=== PATIENT | female | born 1955 | race Asian ===

== ENCOUNTER 2017-04-03 01:43 | Emergency (ER) | payer OTHER ==
[~2017-04-03] VITALS: Ht 152.4 cm; Wt 64.9 kg
[2017-04-03] MEDS ORDERED: FENTANYL PF 100 MCG/2ML ONE (02:19)
[2017-04-03] MEDS ORDERED: ONDANSETRON 2MG/ML, 2ML ONE (02:19)
[2017-04-03] MEDS ORDERED: FAMOTIDINE 20 MG/2 ML ONE (02:20)
[2017-04-03] MEDS ORDERED: FAMOTIDINE 20 MG/2 ML IVP ONE (02:30)
[2017-04-03] MEDS ORDERED: SODIUM CHLORIDE FLUSH 10ML SYR IVF ONE (02:30)
[2017-04-03] MEDS ORDERED: SODIUM CHLORIDE 0.9% 1,000ML IVBOLUS ONE (02:30)
[2017-04-03] MEDS ORDERED: ONDANSETRON 2MG/ML, 2ML IVPush ONE (02:30)
[2017-04-03] MEDS ORDERED: FENTANYL PF 100 MCG/2ML IVPush PRN (02:30)
[2017-04-03 02:34] LABS: BASOPHILS # (AUTO) 0.04 x10^3/uL (0-0.1); BASOPHILS % (AUTO) 0 % (0-1); EOSINOPHILS % (AUTO) 2 % (1-7); LYMPHOCYTES # (AUTO) 2.35 x10^3/uL (1-3.4); LYMPHOCYTES % (AUTO) 22 % (22-44); MD NO; MEAN CORPUSCULAR HEMOGLOBIN 28.9 pg (27.0-34.8); MEAN CORPUSCULAR HGB CONC 33.3 g/dL (32.4-35.8); MEAN CORPUSCULAR VOLUME 86.7 fL (80-100); MEAN PLATELET VOLUME 9.8 fL (7.4-10.4); MONOCYTES # (AUTO) 0.67 x10^3/uL (0.2-0.8); MONOCYTES % (AUTO) 6 % (2-9); NEUTROPHILS % (AUTO) 70 % (42-75); PLATELET COUNT 219 x10^3/uL (130-400); RED CELL DISTRIBUTION WIDTH 13.4 % (9.6-15.2)
[2017-04-03 02:40] LABS: ALBUMIN 3.3 g/dL (3.4-5.0); ANION GAP 7 mmol/L (5-15); CHLORIDE 110 mmol/L (98-107)
[2017-04-03 02:45] LABS: ALANINE AMINOTRANSFERASE 41 U/L (12-78); ALKALINE PHOSPHATASE 56 U/L (45-117); BILIRUBIN,TOTAL 0.5 mg/dL (0.2-1.0); TOTAL PROTEIN 7.3 g/dL (6.4-8.2); TROPONIN I < 0.015 ng/mL (0.000-0.045)
[2017-04-03 02:47] LABS: MICROSCOPIC AUTO
[2017-04-03 02:54] LABS: CULTURE INDICATED? YES
[2017-04-03] MEDS ORDERED: OMNIPAQUE 350 MG/ML, 100ML BOTTLE ONE (03:01)
[2017-04-03 04:10] VITALS: BP 142/90
== END 2017-04-03 04:14 | disposition home or self-care (01) ==
LOC: ED 02:18
DX: K29.00 Acute gastritis without bleeding (principal); Z88.6 Allergy status to analgesic agent; Z88.5 Allergy status to narcotic agent
CPT/HCPCS: 36415; 71010; 74177; 80053; 81001; 83690; 84484; 85025; 87086; 93005; 96361; 96374; 96375; 99285; J2405; J3010; J7030; Q9967; S0028

== ENCOUNTER 2017-04-05 22:00 | Emergency (ER) | payer OTHER ==
[~2017-04-05] VITALS: Ht 152.4 cm; Wt 64.2 kg
[2017-04-05] MEDS ORDERED: CIPR500T3 PO (22:48)
[2017-04-05] MEDS ORDERED: LOSA25TA5 PO (22:51)
[2017-04-05] MEDS ORDERED: ONDANSETRON ODT 4 MG ONE (23:21)
[2017-04-05] MEDS ORDERED: FAMOTIDINE 20 MG TABLET ONE (23:21)
[2017-04-05 23:23] LABS: BASOPHILS # (AUTO) 0.02 x10^3/uL (0-0.1); BASOPHILS % (AUTO) 0 % (0-1); EOSINOPHILS # (AUTO) 0.15 x10^3/uL (0-0.4); EOSINOPHILS % (AUTO) 2 % (1-7); LYMPHOCYTES # (AUTO) 1.29 x10^3/uL (1-3.4); LYMPHOCYTES % (AUTO) 13 % (22-44); MD NO; MEAN CORPUSCULAR HGB CONC 33.7 g/dL (32.4-35.8); MEAN CORPUSCULAR VOLUME 86.1 fL (80-100); MEAN PLATELET VOLUME 9.7 fL (7.4-10.4); MONOCYTES # (AUTO) 0.57 x10^3/uL (0.2-0.8); MONOCYTES % (AUTO) 6 % (2-9); NEUTROPHILS % (AUTO) 80 % (42-75); PLATELET COUNT 228 x10^3/uL (130-400); RED BLOOD COUNT 4.55 x10^6/uL (3.82-5.3); RED CELL DISTRIBUTION WIDTH 13.6 % (9.6-15.2)
[2017-04-05] MEDS ORDERED: FAMOTIDINE 20 MG TABLET PO ONE (23:30)
[2017-04-05] MEDS ORDERED: ONDANSETRON ODT 4 MG PO ONE (23:30)
[2017-04-05 23:35] LABS: ALANINE AMINOTRANSFERASE 51 U/L (12-78); ALBUMIN 3.4 g/dL (3.4-5.0); ANION GAP 8 mmol/L (5-15); CALCIUM 8.8 mg/dL (8.5-10.1); CHLORIDE 111 mmol/L (98-107); CREATININE 0.99 mg/dL (0.55-1.02)
[2017-04-05 23:40] LABS: ALKALINE PHOSPHATASE 52 U/L (45-117); BILIRUBIN,TOTAL 0.4 mg/dL (0.2-1.0); TOTAL PROTEIN 7.4 g/dL (6.4-8.2); TROPONIN I 0.017 ng/mL (0.000-0.045)
[2017-04-06] MEDS ORDERED: ONDANSETRON ODT 4 MG ONE (00:03)
[2017-04-06 00:30] VITALS: BP 135/94
[2017-04-06] MEDS ORDERED: AMLO5TAB2 PO (12:42)
[2017-04-06] MEDS ORDERED: SITA1TAB PO (12:43)
[2017-04-07] MEDS ORDERED: TAMS0.4C2 PO (19:37)
[2017-04-07] MEDS ORDERED: PHEN100T90 PO (19:38)
== END 2017-04-06 00:58 | disposition home or self-care (01) ==
LOC: ED 23:29
DX: R10.13 Epigastric pain (principal); R11.0 Nausea; E11.9 Type 2 diabetes mellitus without complications; I10 Essential (primary) hypertension
CPT/HCPCS: 36415; 80053; 83690; 84484; 85025; 93005; 99285; Q0162

== ENCOUNTER 2017-04-06 09:35 | Inpatient (IN) | payer OTHER ==
[~2017-04-06] VITALS: Ht 152.4 cm; Wt 63.1 kg
[~2017-04-06 09:35] MED LIST: CIPR500T3 PO; LOSA25TA5 PO
[2017-04-06] MEDS ORDERED: NALOXONE 0.4 MG/ML, 1ML ONE (10:28)
[2017-04-06] MEDS ORDERED: GLYCOPYRROLATE 0.2MG/1ML, 5ML ONE (10:28)
[2017-04-06] MEDS ORDERED: ROCURONIUM 10 MG/ML,10ML ONE (10:28)
[2017-04-06] MEDS ORDERED: CEFAZOLIN 1,000 MG ONE (10:28)
[2017-04-06] MEDS ORDERED: PROPOFOL 10 MG/ML, 20ML ONE (10:28)
[2017-04-06] MEDS ORDERED: SUCCINYLCHOLINE 20 MG/ML, 10ML ONE (10:28)
[2017-04-06] MEDS ORDERED: NEOSTIGMINE 1 MG/ML, 10ML ONE (10:28)
[2017-04-06] MEDS ORDERED: MORPHINE SULFATE 4 MG/ML, 1ML ONE ×2 (10:44→12:36)
[2017-04-06] MEDS ORDERED: ONDANSETRON 2MG/ML, 2ML ONE (10:44)
[2017-04-06] MEDS ORDERED: HYDROmorphone 1 MG/ML, 1ML IVPush PRN (11:00)
[2017-04-06] MEDS ORDERED: SODIUM CHLORIDE 0.9% 1,000ML IV ONE (11:00)
[2017-04-06] MEDS ORDERED: ONDANSETRON 2MG/ML, 2ML IVPush ONE (11:00)
[2017-04-06] MEDS ORDERED: SODIUM CHLORIDE FLUSH 10ML SYR IVF ONE (11:00)
[2017-04-06 11:13] LABS: MEAN CORPUSCULAR HEMOGLOBIN 28.7 pg (27.0-34.8); MEAN CORPUSCULAR HGB CONC 33.5 g/dL (32.4-35.8); MEAN CORPUSCULAR VOLUME 85.6 fL (80-100); MEAN PLATELET VOLUME 9.6 fL (7.4-10.4); PLATELET COUNT 235 x10^3/uL (130-400); RED BLOOD COUNT 4.74 x10^6/uL (3.82-5.3); RED CELL DISTRIBUTION WIDTH 13.2 % (9.6-15.2)
[2017-04-06 11:25] LABS: ALBUMIN 3.8 g/dL (3.4-5.0); ANION GAP 8 mmol/L (5-15); CALCIUM 8.8 mg/dL (8.5-10.1); CHLORIDE 107 mmol/L (98-107)
[2017-04-06 11:28] LABS: ALANINE AMINOTRANSFERASE 57 U/L (12-78); ALKALINE PHOSPHATASE 51 U/L (45-117); BILIRUBIN,TOTAL 0.6 mg/dL (0.2-1.0); CREATININE 1.12 mg/dL (0.55-1.02); TOTAL PROTEIN 8.1 g/dL (6.4-8.2)
[2017-04-06 11:29] LABS: BASOPHILS # (AUTO) 0.01 x10^3/uL (0-0.1); BASOPHILS % (AUTO) 0 % (0-1); EOSINOPHILS # (AUTO) 0.28 x10^3/uL (0-0.4); EOSINOPHILS % (AUTO) 2 % (1-7); LYMPHOCYTES # (AUTO) 1.33 x10^3/uL (1-3.4); LYMPHOCYTES % (AUTO) 9 % (22-44); MD SCAN; MONOCYTES # (AUTO) 1.02 x10^3/uL (0.2-0.8); MONOCYTES % (AUTO) 7 % (2-9); NEUTROPHILS # (AUTO) 11.42 x10^3/uL (1.8-6.8); NEUTROPHILS % (AUTO) 81 % (42-75)
[2017-04-06] MEDS ORDERED: MORPHINE SULFATE 4 MG/ML, 1ML IVPush ONE (11:30)
[2017-04-06 11:46] LABS: MICROSCOPIC AUTO
[2017-04-06 11:49] LABS: CULTURE INDICATED? YES
[2017-04-06] MEDS ORDERED: CIPROFLOXACIN 500 MG TABLET PO ONE (12:00)
[2017-04-06] MEDS ORDERED: TAMSULOSIN 0.4 MG CAP.ER.24H ONE (12:18)
[2017-04-06] MEDS ORDERED: CIPROFLOXACIN 500 MG TABLET ONE (12:19)
[2017-04-06] MEDS ORDERED: MORPHINE SULFATE 4 MG/ML, 1ML IVPush PRN (12:30)
[2017-04-06] MEDS ORDERED: TAMSULOSIN 0.4 MG CAP.ER.24H PO ONE (12:30)
[2017-04-06] MEDS ORDERED: AMLO5TAB2 PO (12:42)
[2017-04-06] MEDS ORDERED: SITA1TAB PO (12:43)
[2017-04-06] MEDS: SODIUM CHLORIDE 0.9% 1,000 ML IV SCH ×2 (12:54→19:31)
[2017-04-06] MEDS ORDERED: ONDANSETRON 2MG/ML, 2ML IVPush PRN ×3 (13:00→16:00)
[2017-04-06] MEDS ORDERED: ACETAMINOPHEN 325 MG TABLET PO PRN ×2 (13:00→14:30)
[2017-04-06] MEDS ORDERED: KETOROLAC 30 MG/1 ML IVPush PRN (13:00)
[2017-04-06] MEDS ORDERED: TEMAZEPAM 15 MG CAPSULE PO PRN (13:00)
[2017-04-06] MEDS ORDERED: FENTANYL PF 100 MCG/2ML ONE (13:04)
[2017-04-06] MEDS ORDERED: MIDAZOLAM 1 MG/ML, 2ML ONE (13:04)
[2017-04-06] MEDS ORDERED: HYDROmorphone 1 MG/ML, 1ML IV PRN (14:30)
[2017-04-06] MEDS ORDERED: hydrALAzine 20 MG/ML, 1ML IV PRN (14:30)
[2017-04-06] MEDS ORDERED: FENTANYL PF 100 MCG/2ML IV PRN (14:30)
[2017-04-06] MEDS ORDERED: OXYcodone 5 MG/5 ML ORAL.SOL UDC PO PRN (14:30)
[2017-04-06] MEDS ORDERED: LABETALOL 5MG/ML, 20ML IV PRN (14:30)
[2017-04-06 15:30] VITALS: BP 125/80
[2017-04-06] MEDS ORDERED: CEFTRIAXONE PMX 1GM/50ML 50 ML IV SCH (16:00)
[2017-04-06] MEDS ORDERED: D5%-0.45NACL+KCL 20MEQ 1,000 ML IV SCH (16:00)
[2017-04-06] MEDS ORDERED: MORPHINE SULFATE 4 MG/ML, 1ML IV PRN (16:00)
[2017-04-06] MEDS ORDERED: HYDROcodone/APAP 5/325 TABLET PO PRN (16:30)
[2017-04-06] MEDS: CEFTRIAXONE 1,000 MG in DEXTROSE 5% 50 ML IVPB SCH (17:38)
[2017-04-06 20:09] VITALS: BP 130/80
[2017-04-06] MEDS: INSULIN ASPART 100 UNITS/ML, PEN SQ-INSULIN SCH (22:16)
[2017-04-07 00:03] VITALS: BP 138/79
[2017-04-07 03:32] VITALS: BP 119/69
[2017-04-07] MEDS: CEFTRIAXONE 1,000 MG in DEXTROSE 5% 50 ML IVPB SCH ×2 (04:15→16:00)
[2017-04-07] MEDS: SODIUM CHLORIDE 0.9% 1,000 ML IV SCH ×3 (04:15→18:21)
[2017-04-07 05:21] LABS: BASOPHILS # (AUTO) 0.02 x10^3/uL (0-0.1); BASOPHILS % (AUTO) 0 % (0-1); EOSINOPHILS # (AUTO) 0.13 x10^3/uL (0-0.4); EOSINOPHILS % (AUTO) 2 % (1-7); LYMPHOCYTES # (AUTO) 1.47 x10^3/uL (1-3.4); LYMPHOCYTES % (AUTO) 18 % (22-44); MD NO; MEAN CORPUSCULAR HEMOGLOBIN 29.3 pg (27.0-34.8); MEAN CORPUSCULAR HGB CONC 33.6 g/dL (32.4-35.8); MEAN PLATELET VOLUME 9.5 fL (7.4-10.4); MONOCYTES # (AUTO) 0.87 x10^3/uL (0.2-0.8); MONOCYTES % (AUTO) 11 % (2-9); NEUTROPHILS # (AUTO) 5.84 x10^3/uL (1.8-6.8); NEUTROPHILS % (AUTO) 70 % (42-75); PLATELET COUNT 195 x10^3/uL (130-400); RED BLOOD COUNT 4.07 x10^6/uL (3.82-5.3); RED CELL DISTRIBUTION WIDTH 13.2 % (9.6-15.2)
[2017-04-07 05:28] LABS: CHLORIDE 106 mmol/L (98-107)
[2017-04-07 05:37] LABS: ANION GAP 5 mmol/L (5-15); CREATININE 0.89 mg/dL (0.55-1.02)
[2017-04-07] MEDS: INSULIN ASPART 100 UNITS/ML, PEN SQ-INSULIN SCH ×4 (07:00→16:00)
[2017-04-07 08:00] VITALS: BP 121/84
[2017-04-07] MEDS ORDERED: MAGNESIUM CITRATE 300ML ORAL SOL PO PRN (16:00)
[2017-04-07 16:11] VITALS: BP 107/67
[2017-04-07] MEDS ORDERED: TAMS0.4C2 PO (19:37)
[2017-04-07] MEDS ORDERED: PHEN100T90 PO (19:38)
[2017-04-07 19:48] VITALS: BP 145/94
== END 2017-04-07 20:15 | disposition home or self-care (01) | DRG 690 ==
LOC: OR 12:47 → SUATTDRO 12:53 → EDIP 12:54 → 4NOR 15:32
PROVIDERS: ADMIT Internal Medicine; ATTEND Internal Medicine
PROC: BT1F1ZZ Fluoroscopy of Left Kidney, Ureter and Bladder using Low Osmolar Contrast (ICD-10-PCS; 2017-04-06)
PROC: 0T778DZ Dilation of Left Ureter with Intraluminal Device, Via Natural or Artificial Opening Endoscopic (ICD-10-PCS; principal; 2017-04-06 11:45)
DX: N13.6 Pyonephrosis (principal); N17.9 Acute kidney failure, unspecified; K76.0 Fatty (change of) liver, not elsewhere classified; E11.9 Type 2 diabetes mellitus without complications; I10 Essential (primary) hypertension; K57.30 Diverticulosis of large intestine without perforation or abscess without bleeding; N00.9 Acute nephritic syndrome with unspecified morphologic changes; N23 Unspecified renal colic; Z87.442 Personal history of urinary calculi; Z88.5 Allergy status to narcotic agent
CPT/HCPCS: 36415; 74018; 74176; 74420; 80048; 80053; 81001; 82962; 83605; 83690; 83735; 85025; 87040; 87086; 96361; 96374; 96375; J0690; J0696; J1815; J1885; J2250; J2310; J2405; J2704; J2710; J3010; J3490; C2617; J0330; J3480; J7030

== ENCOUNTER → 2017-04-24 | Outpatient (CLI) | payer OTHER ==
[~2017-04-24] MED LIST changes: +AMLO5TAB2 PO; +FAMO-79 PO; +LANS30CA PO; +PHEN100T90 PO; +SITA1TAB PO; +TAMS-11 PO; +TAMS0.4C2 PO; +potassium chloride PO
[2017-04-24 15:01] LABS: ALANINE AMINOTRANSFERASE 54 U/L (12-78); ALBUMIN 3.7 g/dL (3.4-5.0); ANION GAP 8 mmol/L (5-15); CALCIUM 8.7 mg/dL (8.5-10.1); CHLORIDE 110 mmol/L (98-107)
[2017-04-24 15:04] LABS: ALKALINE PHOSPHATASE 54 U/L (45-117); BILIRUBIN,TOTAL 0.4 mg/dL (0.2-1.0); CREATININE 0.87 mg/dL (0.55-1.02)
[2017-04-24 15:38] LABS: MICROSCOPIC INDICATED
== END | disposition home or self-care (01) ==
LOC: STAR 13:23
PROVIDERS: ATTEND Urology
DX: Z01.818 Encounter for other preprocedural examination (principal); N20.1 Calculus of ureter
CPT/HCPCS: 36415; 80053; 81001; 87086

== ENCOUNTER 2017-04-28 11:26 | Day surgery (SDC) | payer OTHER ==
[2017-04-24 13:44] VITALS: BP 137/94
[~2017-04-28] VITALS: Ht 152.4 cm; Wt 62.7 kg
[2017-04-28] MEDS ORDERED: LACTATED RINGERS 1,000 ML IV SCH (11:53)
[2017-04-28] MEDS ORDERED: PROPOFOL 10 MG/ML, 20ML ONE (12:37)
[2017-04-28] MEDS ORDERED: LIDOCAINE-MPF 2% ,5ML ONE (12:37)
[2017-04-28] MEDS ORDERED: ONDANSETRON 2MG/ML, 2ML IVPush PRN (13:00)
[2017-04-28] MEDS ORDERED: FENTANYL PF 100 MCG/2ML IV PRN (13:00)
[2017-04-28] MEDS ORDERED: MEPERIDINE/PF 25MG/0.5ML IVPush PRN (13:00)
[2017-04-28] MEDS ORDERED: ACETAMINOPHEN 325 MG TABLET PO PRN (13:00)
[2017-04-28] MEDS ORDERED: HYDROcodone/APAP 7.5-325MG/15ML UDC PO PRN (13:00)
[2017-04-28] MEDS ORDERED: LIDOCAINE GEL 2%, 5ML ONE (13:21)
[2017-04-28] MEDS ORDERED: CEFAZOLIN 1,000 MG ONE (13:32)
[2017-04-28] MEDS ORDERED: DEXAMETHASONE 4 MG/ML, 1ML ONE ×2 (13:41)
[2017-04-28] MEDS ORDERED: ONDANSETRON 2MG/ML, 2ML ONE (13:41)
[2017-04-28] MEDS ORDERED: FENTANYL PF 100 MCG/2ML ONE (13:47)
[2017-04-28] MEDS ORDERED: HYDROcodone/APAP 7.5-325MG/15ML UDC ONE (14:30)
[2017-04-28] MEDS ORDERED: morphine SULFATE 10 MG/ML, 1ML ONE (14:30)
[2017-04-28] MEDS ORDERED: OMNIPAQUE 350 MG/ML, 50 ML BOTTLE ONE (14:32)
[2017-04-28] MEDS: morphine SULFATE 10 MG/ML, 1ML IV PRN ×2 (14:33→14:58)
[2017-04-28] MEDS ORDERED: SCOPOLAMINE PATCH, 1.5MG PATCH.TD72 TD ONE ×2 (17:58→18:00)
== END 2017-04-28 18:45 | disposition home or self-care (01) ==
LOC: OUT 11:26
PROVIDERS: ATTEND Urology
DX: N20.1 Calculus of ureter (principal); E11.9 Type 2 diabetes mellitus without complications; Z88.6 Allergy status to analgesic agent; Z88.5 Allergy status to narcotic agent; Z88.8 Allergy status to other drugs, medicaments and biological substances
CPT/HCPCS: 52353; 74420; 82360; 82962; 88300; C1726; C1758; C1769; J0690; J1100; J2270; J2405; J2704; J3010; J3490; J7120; Q9967

== ENCOUNTER → 2017-06-19 | Outpatient (CLI) | payer OTHER | END | disposition home or self-care (01) | LOC: CFH 11:53 | PROVIDERS: ATTEND Urology | DX: N20.0 Calculus of kidney (principal); K76.0 Fatty (change of) liver, not elsewhere classified | CPT/HCPCS: 74176 ==

== ENCOUNTER → 2017-10-02 | Outpatient (CLI) | payer OTHER | END | disposition home or self-care (01) | LOC: CFH 13:25 | PROVIDERS: ATTEND Obstetrics & Gynecology | DX: Z12.31 Encounter for screening mammogram for malignant neoplasm of breast (principal) | CPT/HCPCS: 77063; 77067 ==

== ENCOUNTER → 2018-03-12 | Outpatient (CLI) | payer OTHER ==
[~2018-03-12] MED LIST changes: +AMLO-150 PO; -AMLO5TAB2 PO; -LOSA25TA5 PO; +LOSA25TA6 PO
[2018-03-12 15:31] LABS: BASOPHILS # (AUTO) 0.03 x10^3/uL (0-0.1); BASOPHILS % (AUTO) 0 % (0-1); EOSINOPHILS # (AUTO) 0.27 x10^3/uL (0-0.4); EOSINOPHILS % (AUTO) 4 % (1-7); LYMPHOCYTES # (AUTO) 1.53 x10^3/uL (1-3.4); LYMPHOCYTES % (AUTO) 20 % (22-44); MD NO; MEAN CORPUSCULAR HEMOGLOBIN 28.5 pg (27.0-34.8); MEAN CORPUSCULAR HGB CONC 33.7 g/dL (32.4-35.8); MEAN CORPUSCULAR VOLUME 84.4 fL (80-100); MEAN PLATELET VOLUME 9.8 fL (7.4-10.4); MONOCYTES # (AUTO) 0.79 x10^3/uL (0.2-0.8); MONOCYTES % (AUTO) 10 % (2-9); NEUTROPHILS # (AUTO) 5.09 x10^3/uL (1.8-6.8); NEUTROPHILS % (AUTO) 66 % (42-75); PLATELET COUNT 241 x10^3/uL (130-400); RED BLOOD COUNT 5.32 x10^6/uL (3.82-5.3); RED CELL DISTRIBUTION WIDTH 13.4 % (9.6-15.2)
[2018-03-12 15:44] LABS: ALANINE AMINOTRANSFERASE 84 U/L (12-78); ALBUMIN 3.5 g/dL (3.4-5.0); ANION GAP 10 mmol/L (5-15); CALCIUM 8.8 mg/dL (8.5-10.1); CHLORIDE 110 mmol/L (98-107); CREATININE 1.31 mg/dL (0.55-1.02)
[2018-03-12 15:47] LABS: ALKALINE PHOSPHATASE 59 U/L (45-117); BILIRUBIN,TOTAL 0.4 mg/dL (0.2-1.0); TOTAL PROTEIN 8.1 g/dL (6.4-8.2)
== END | disposition home or self-care (01) ==
LOC: LAB 15:18
PROVIDERS: ATTEND Nurse Practitioner Family
DX: E11.65 Type 2 diabetes mellitus with hyperglycemia (principal)
CPT/HCPCS: 36415; 80053; 82150; 83690; 85025

== ENCOUNTER → 2018-03-13 | Outpatient (CLI) | payer OTHER | END | disposition home or self-care (01) | LOC: RAD 07:24 | PROVIDERS: ATTEND Nurse Practitioner Family | DX: K76.0 Fatty (change of) liver, not elsewhere classified (principal) | CPT/HCPCS: 76700 ==

== ENCOUNTER → 2018-04-23 | Outpatient (CLI) | payer OTHER ==
[~2018-04-23] MED LIST changes: +LOSA25TA25 PO; -LOSA25TA6 PO
== END | disposition home or self-care (01) ==
LOC: CFH 08:42
PROVIDERS: ATTEND Urology
DX: N20.0 Calculus of kidney (principal)
CPT/HCPCS: 74176

== ENCOUNTER → 2018-06-25 | Outpatient (CLI) | payer OTHER | END | disposition home or self-care (01) | LOC: RAD 07:14 | PROVIDERS: ATTEND Urology | DX: N20.0 Calculus of kidney (principal) | CPT/HCPCS: 74176 ==

== ENCOUNTER 2018-09-03 06:45 | Outpatient (CLI) | payer OTHER | END 2018-09-03 23:59 | disposition home or self-care (01) | LOC: CFH 06:45 | PROVIDERS: ATTEND Urology | DX: N20.0 Calculus of kidney (principal) | CPT/HCPCS: 76770 ==

== ENCOUNTER → 2018-10-15 | Outpatient (CLI) | payer OTHER | END | disposition home or self-care (01) | LOC: CFH 07:18 | PROVIDERS: ATTEND Nurse Practitioner Family | DX: M85.80 Other specified disorders of bone density and structure, unspecified site (principal); M81.0 Age-related osteoporosis without current pathological fracture | CPT/HCPCS: 77080 ==

== ENCOUNTER → 2019-09-30 | Outpatient (CLI) | payer OTHER ==
[2019-09-30 08:51] LABS: BASOPHILS # (AUTO) 0.04 x10^3/uL (0-0.1); BASOPHILS % (AUTO) 0 % (0-1); EOSINOPHILS # (AUTO) 0.01 x10^3/uL (0-0.4); EOSINOPHILS % (AUTO) 0 % (1-7); LYMPHOCYTES # (AUTO) 1.64 x10^3/uL (1-3.4); LYMPHOCYTES % (AUTO) 12 % (22-44); MD NO; MEAN CORPUSCULAR HEMOGLOBIN 28.4 pg (27.0-34.8); MEAN CORPUSCULAR HGB CONC 32.9 g/dL (32.4-35.8); MEAN CORPUSCULAR VOLUME 86.4 fL (80-100); MEAN PLATELET VOLUME 10.1 fL (7.4-10.4); MONOCYTES # (AUTO) 0.38 x10^3/uL (0.2-0.8); MONOCYTES % (AUTO) 3 % (2-9); NEUTROPHILS # (AUTO) 11.47 x10^3/uL (1.8-6.8); NEUTROPHILS % (AUTO) 85 % (42-75); PLATELET COUNT 247 x10^3/uL (130-400); RED BLOOD COUNT 5.05 x10^6/uL (3.82-5.3); RED CELL DISTRIBUTION WIDTH 13.4 % (9.6-15.2)
[2019-09-30 09:02] LABS: ALANINE AMINOTRANSFERASE 69 U/L (12-78); ALBUMIN 3.7 g/dL (3.4-5.0); ANION GAP 9 mmol/L (5-15); CALCIUM 9.9 mg/dL (8.5-10.1); CHLORIDE 109 mmol/L (98-107); CHOLESTEROL, TOTAL 171 mg/dL (140-239); CREATININE 0.99 mg/dL (0.55-1.02)
[2019-09-30 09:04] LABS: ALKALINE PHOSPHATASE 60 U/L (45-117); BILIRUBIN,TOTAL 0.5 mg/dL (0.2-1.0); CHOL/HDL RATIO 4.1; HDL CHOL % 25 % (28-40); HDL CHOLESTEROL (DIRECT) 42 mg/dL (40-60); LDL CHOLESTEROL,CALCULATED 99 mg/dL (54-169); LDL/HDL RATIO 2.4 (0.5-3.0); TOTAL PROTEIN 8.4 g/dL (6.4-8.2); TRIGLYCERIDES 148 mg/dL (50-200); VLDL CHOLESTEROL 30 mg/dL (0-25)
== END | disposition home or self-care (01) ==
LOC: LAB 08:35
PROVIDERS: ATTEND Nurse Practitioner Family
DX: E11.65 Type 2 diabetes mellitus with hyperglycemia (principal); E78.5 Hyperlipidemia, unspecified; I10 Essential (primary) hypertension
CPT/HCPCS: 36415; 80053; 80061; 83036; 85025

== ENCOUNTER 2020-02-28 08:58 | Inpatient (IN) | payer OTHER ==
[~2020-02-28] VITALS: Ht 152.4 cm; Wt 52.0 kg
--- NOTE | 2020-02-28 09:12 | NUR ---
CLINICAL QUALITY ASSURANCE ASSOCIATE: PT SP02 = 81% ON RA. PT TO ROOM VIA WHEELCHAIR AND O2 2L NC PLACED.
--- NOTE | 2020-02-28 09:25 | NUR ---
RECHECK VITALS. BP OK, LAW AWARE. 4LNC AT 92%. C/O TIGHTNESS IN CHEST BUT NO PAIN, SOME SOB. A&OX4 GCS15.
[2020-02-28] MEDS ORDERED: SODIUM CHLORIDE FLUSH 10ML SYR IVF ONE (09:30)
[2020-02-28 09:48] LABS: BASOPHILS % (AUTO) 0 % (0-1); EOSINOPHILS % (AUTO) 0 % (1-7); LYMPHOCYTES % (AUTO) 5 % (22-44); MEAN CORPUSCULAR HEMOGLOBIN 28.2 pg (27.0-34.8); MEAN CORPUSCULAR HGB CONC 32.6 g/dL (32.4-35.8); MEAN PLATELET VOLUME 8.9 fL (7.4-10.4); MONOCYTES % (AUTO) 4 % (2-9); NEUTROPHILS % (AUTO) 91 % (42-75); PLATELET COUNT 165 x10^3/uL (130-400); RED BLOOD COUNT 4.92 x10^6/uL (3.82-5.3); RED CELL DISTRIBUTION WIDTH 13.9 % (9.6-15.2)
[2020-02-28 10:01] LABS: ALANINE AMINOTRANSFERASE 85 U/L (12-78); ALBUMIN 3.1 g/dL (3.4-5.0); ANION GAP 11 mmol/L (5-15); CALCIUM 8.9 mg/dL (8.5-10.1); CHLORIDE 111 mmol/L (98-107)
[2020-02-28 10:06] LABS: ALKALINE PHOSPHATASE 67 U/L (45-117); BILIRUBIN,TOTAL 0.4 mg/dL (0.2-1.0); TROPONIN I < 0.015 ng/mL (0.000-0.045)
[2020-02-28 10:07] LABS: D-DIMER (DIC) 0.35 ug/mlFEU (0.00-0.52); PROTIME 9.8 Seconds (9.6-11.5)
[2020-02-28] MEDS ORDERED: DEXAMETHASONE 4 MG/ML, 1ML ONE (10:11)
[2020-02-28] MEDS ORDERED: BENZONATATE 100 MG CAPSULE ONE ×2 (10:12→11:43)
[2020-02-28] MEDS ORDERED: CEFTRIAXONE PMX 1GM/50ML 50 ML ONE (10:12)
[2020-02-28 10:19] LABS: MD SCAN
--- NOTE | 2020-02-28 10:29 | NUR ---
NS/IV ABX PER JUN. GIVEN JUICE. ORDERED FOOD. PT TACHYPNEIC BUT DENIES SOB. RAPID SHALLOW BREATHING NOTED. DECLINED TESSALON PEARLS. CTM.
[2020-02-28] MEDS ORDERED: BENZONATATE 100 MG CAPSULE PO ONE (10:30)
[2020-02-28] MEDS ORDERED: DOXYCYCLINE 100 MG in DEXTROSE 5% 250 ML IV SCH (10:30)
[2020-02-28] MEDS ORDERED: CEFTRIAXONE PMX 1GM/50ML 50 ML IV ONE (10:30)
[2020-02-28] MEDS ORDERED: SODIUM CHLORIDE 0.9%, 500ML IVBOLUS ONE (10:30)
[2020-02-28] MEDS ORDERED: DEXAMETHASONE 4 MG/ML, 1ML IVPush ONE (10:30)
[2020-02-28] MEDS ORDERED: PHARMACY MAY ADJ FOR RENAL FX MC PRN (11:00)
[2020-02-28] MEDS ORDERED: DOCUSATE 100 MG CAPSULE PO PRN (11:00)
--- NOTE | 2020-02-28 11:03 | NUR ---
PLAN FOR ADMIT. PA NOTIFED OF RESP RATE, RR TO 30 WHEN RN NOT IN ROOM AND PT RESTING. GIVEN FOOD/SOUP.
[2020-02-28] MEDS: SODIUM CHLORIDE 0.9% 1,000 ML IV SCH ×2 (11:41→11:51)
--- NOTE | 2020-02-28 11:42 | NUR ---
GAVE PT NEW MASK PER REQUEST. PT IS CALM. VITALS ASSESSED.
[2020-02-28] MEDS ORDERED: ENOXAPARIN 40 MG/0.4 ML ONE (11:43)
[2020-02-28] MEDS: ENOXAPARIN 40 MG/0.4 ML SQ SCH (11:51)
--- NOTE | 2020-02-28 12:55 | NUR ---
GIVEN LUNCH. REMDESIVIR REQUESTED. DOXY INFUSING.
[2020-02-28] MEDS ORDERED: REMDESIVIR 200 MG in SODIUM CHLORIDE 0.9% 250 ML IVPB ONE (13:00)
--- NOTE | 2020-02-28 13:28 | NUR ---
CALLED FOR HOSP BED. OOB TO COMMODE .
--- NOTE | 2020-02-28 13:47 | NUR ---
TO COMMODE, UNSTEADY ON FEET. CALL [facility] IN REACH, BACK IN BED FALL PRECS.
--- NOTE | 2020-02-28 14:00 | NUR ---
O2 UP TO 6LNC, DESATS TO 89 WHEN SLEEPING.
--- NOTE | 2020-02-28 17:42 | NUR ---
purewick placed, 400 cc out. as
--- NOTE | 2020-02-28 17:50 | NUR ---
report to moe zhao. as
[2020-02-28 19:08] VITALS: BP 109/75
[2020-02-28] MEDS: ASCORBIC ACID 500 MG TABLET PO SCH (19:58)
[2020-02-28] MEDS ORDERED: FAMOTIDINE 20 MG TABLET PO SCH (21:00)
[2020-02-28] MEDS: metFORMIN 500 MG TABLET PO SCH (21:44)
[2020-02-28] MEDS: AMLODIPINE 10 MG TAB PO SCH (21:44)
[2020-02-28] MEDS: BENZONATATE 100 MG CAPSULE PO PRN (21:45)
[2020-02-29 00:38] VITALS: BP 100/65
[2020-02-29] MEDS: TAMSULOSIN 0.4 MG CAP.ER.24H PO SCH ×3 (01:06→20:50)
[2020-02-29] MEDS: ACETAMINOPHEN 325 MG TABLET PO PRN (01:06)
[2020-02-29 03:51] LABS: BASOPHILS % (AUTO) 0 % (0-1); EOSINOPHILS % (AUTO) 0 % (1-7); LYMPHOCYTES % (AUTO) 12 % (22-44); MEAN CORPUSCULAR HEMOGLOBIN 28.3 pg (27.0-34.8); MONOCYTES % (AUTO) 10 % (2-9); NEUTROPHILS % (AUTO) 78 % (42-75); PLATELET COUNT 141 x10^3/uL (130-400); RED BLOOD COUNT 4.65 x10^6/uL (3.82-5.3); RED CELL DISTRIBUTION WIDTH 14.1 % (9.6-15.2)
[2020-02-29 03:52] LABS: MD NO
[2020-02-29 03:59] LABS: INTERNATIONAL NORMALIZED RATIO 0.93 (0.93-1.1); PROTHROMBIN TIME 9.9 Seconds (9.6-11.5)
[2020-02-29 04:03] LABS: ALANINE AMINOTRANSFERASE 67 U/L (12-78); ALBUMIN 2.6 g/dL (3.4-5.0); ANION GAP 7 mmol/L (5-15); CALCIUM 8.7 mg/dL (8.5-10.1); CHLORIDE 116 mmol/L (98-107); CREATININE 0.97 mg/dL (0.55-1.02)
[2020-02-29 04:05] LABS: ALKALINE PHOSPHATASE 60 U/L (45-117); BILIRUBIN,TOTAL 0.3 mg/dL (0.2-1.0); TOTAL PROTEIN 6.9 g/dL (6.4-8.2)
[2020-02-29] MEDS: SODIUM CHLORIDE 0.9% 1,000 ML IV SCH ×2 (05:50→20:43)
[2020-02-29] MEDS ORDERED: PANTOPRAZOLE 40MG TABLET PO SCH (06:00)
[2020-02-29 07:20] VITALS: BP 106/66
[2020-02-29] MEDS: OMEPRAZOLE 20 MG CAPSULE.DR PO SCH (07:53)
[2020-02-29] MEDS ORDERED: DEXAMETHASONE 1 MG TABLET PO SCH (09:00)
[2020-02-29] MEDS ORDERED: AMLODIPINE 10 MG TAB PO SCH (09:00)
[2020-02-29] MEDS ORDERED: TAMSULOSIN 0.4 MG CAP.ER.24H PO SCH (09:00)
[2020-02-29] MEDS: metFORMIN 500 MG TABLET PO SCH ×2 (09:19→16:38)
[2020-02-29] MEDS: ZINC SULFATE 220 MG CAPSULE PO SCH (09:19)
[2020-02-29] MEDS: LOSARTAN 25MG TABLET PO SCH (09:19)
[2020-02-29] MEDS: ASCORBIC ACID 500 MG TABLET PO SCH ×2 (09:19→20:43)
[2020-02-29] MEDS: SITAGLIPTIN PHOS HOMEMEDPO SCH (09:20)
[2020-02-29] MEDS: METFORMIN HCL HOMEMEDPO SCH (09:20)
[2020-02-29] MEDS: ENOXAPARIN 40 MG/0.4 ML SQ SCH (10:43)
[2020-02-29] MEDS: REMDESIVIR 100 MG in SODIUM CHLORIDE 0.9% 250 ML IVPB SCH (12:31)
[2020-02-29 13:50] VITALS: BP 104/68
[2020-02-29 18:34] VITALS: BP 119/64
[2020-02-29] MEDS: AMLODIPINE 10 MG TAB PO SCH ×2 (20:43→20:48)
[2020-02-29 20:46] VITALS: BP 103/63
[2020-03-01 00:31] VITALS: BP 108/66
[2020-03-01] MEDS: ACETAMINOPHEN 325 MG TABLET PO PRN (00:37)
[2020-03-01 02:50] LABS: TROPONIN I < 0.015 ng/mL (0.000-0.045)
[2020-03-01] MEDS ORDERED: DOXYCYCLINE 100 MG in DEXTROSE 5% 250 ML IV SCH (03:30)
[2020-03-01] MEDS: CEFTRIAXONE PMX 1GM/50ML 50 ML IV SCH (03:30)
[2020-03-01 03:54] LABS: BASOPHILS % (AUTO) 0 % (0-1); EOSINOPHILS % (AUTO) 0 % (1-7); LYMPHOCYTES % (AUTO) 12 % (22-44); MEAN CORPUSCULAR HEMOGLOBIN 28.4 pg (27.0-34.8); MEAN CORPUSCULAR HGB CONC 32.9 g/dL (32.4-35.8); MEAN PLATELET VOLUME 9.3 fL (7.4-10.4); MONOCYTES % (AUTO) 11 % (2-9); NEUTROPHILS % (AUTO) 77 % (42-75); PLATELET COUNT 140 x10^3/uL (130-400); RED BLOOD COUNT 4.28 x10^6/uL (3.82-5.3)
[2020-03-01 03:55] LABS: MD NO
[2020-03-01 03:58] LABS: CHLORIDE 116 mmol/L (98-107)
[2020-03-01 04:18] LABS: ALANINE AMINOTRANSFERASE 58 U/L (12-78); ALBUMIN 2.2 g/dL (3.4-5.0); ALKALINE PHOSPHATASE 58 U/L (45-117); ANION GAP 8 mmol/L (5-15); BILIRUBIN,TOTAL 0.4 mg/dL (0.2-1.0); CALCIUM 7.8 mg/dL (8.5-10.1); CREATININE 0.72 mg/dL (0.55-1.02); TOTAL PROTEIN 6.2 g/dL (6.4-8.2)
[2020-03-01] MEDS: OMEPRAZOLE 20 MG CAPSULE.DR PO SCH (05:44)
[2020-03-01] MEDS: SODIUM CHLORIDE 0.9% 1,000 ML IV SCH (05:44)
[2020-03-01] MEDS: FUROSEMIDE 40 MG/4 ML IV SCH ×2 (08:03→16:38)
[2020-03-01] MEDS: metFORMIN 500 MG TABLET PO SCH ×2 (08:03→16:37)
[2020-03-01] MEDS: DEXAMETHASONE 4 MG/ML, 1ML IVPush SCH (08:03)
[2020-03-01 08:39] LABS: TROPONIN I 0.024 ng/mL (0.000-0.045)
[2020-03-01] MEDS: TAMSULOSIN 0.4 MG CAP.ER.24H PO SCH (08:41)
[2020-03-01] MEDS: CHOLECALCIFEROL 5,000u TAB PO SCH (08:41)
[2020-03-01] MEDS: ZINC SULFATE 220 MG CAPSULE PO SCH (08:41)
[2020-03-01] MEDS: BENZONATATE 100 MG CAPSULE PO PRN (08:53)
[2020-03-01] MEDS: ASCORBIC ACID 500 MG TABLET PO SCH ×2 (08:53→21:19)
[2020-03-01] MEDS: METFORMIN HCL HOMEMEDPO SCH (10:06)
[2020-03-01] MEDS: SITAGLIPTIN PHOS HOMEMEDPO SCH (10:06)
[2020-03-01] MEDS: LOSARTAN 25MG TABLET PO SCH (10:34)
[2020-03-01] MEDS: ENOXAPARIN 40 MG/0.4 ML SQ SCH (10:43)
[2020-03-01] MEDS ORDERED: FENTANYL PF 100 MCG/2ML ONE (12:14)
[2020-03-01] MEDS ORDERED: NOREPINEPHRINE 1 MG/ML, 4ML ONE (12:45)
[2020-03-01] MEDS ORDERED: FENTANYL PF 100 MCG/2ML IVPush ONE (13:30)
[2020-03-01] MEDS ORDERED: DEXTROSE 4 GM TAB.CHEW PO PRN (13:30)
[2020-03-01] MEDS ORDERED: GLUCAGON 1 MG IM PRN (13:30)
[2020-03-01] MEDS ORDERED: PHARMACY MAY ADJ FOR RENAL FX MC SCH (13:30)
[2020-03-01] MEDS ORDERED: SENNA 176 MG/5 ML ORAL SOL NG PRN (13:30)
[2020-03-01] MEDS ORDERED: LACTULOSE 20 GM/30 ML UDC NG PRN (13:30)
[2020-03-01] MEDS ORDERED: DEXTROSE 50%, 50ML SYRINGE IVPush PRN (13:30)
[2020-03-01] MEDS: REMDESIVIR 100 MG in SODIUM CHLORIDE 0.9% 250 ML IVPB SCH (13:44)
[2020-03-01 14:27] LABS: MICROSCOPIC INDICATED
[2020-03-01 14:30] LABS: TROPONIN I < 0.015 ng/mL (0.000-0.045)
[2020-03-01] MEDS ORDERED: PROPOFOL 10 MG/ML, 100ML IV ONE (16:00)
[2020-03-01] MEDS ORDERED: ETOMIDATE 20 MG/10 ML ONE (16:00)
[2020-03-01] MEDS: PROPOFOL 100 ML IV PRN ×2 (18:07→23:46)
[2020-03-01] MEDS ORDERED: DOXYCYCLINE 100MG TABLET PO SCH (21:00)
[2020-03-01] MEDS: AMLODIPINE 10 MG TAB PO SCH (21:00)
[2020-03-01] MEDS: SODIUM CHLORIDE FLUSH 10ML SYR IVF SCH (21:15)
[2020-03-01] MEDS: DOXYCYCLINE 50 MG/5 ML ORAL SUSP NG SCH (21:20)
[2020-03-02] MEDS: ACETAMINOPHEN 325 MG TABLET PO PRN (00:14)
[2020-03-02] MEDS ORDERED: DIPHENHYDRAMINE 25 MG CAPSULE PO ONE (00:30)
[2020-03-02] MEDS: NOREPINEPHRINE 8 MG in SODIUM CHLORIDE 0.9% 242 ML IV PRN ×2 (02:32→18:22)
[2020-03-02] MEDS: PROPOFOL 100 ML IV PRN ×4 (04:17→22:35)
[2020-03-02 04:28] LABS: ALBUMIN 2.2 g/dL (3.4-5.0); ANION GAP 6 mmol/L (5-15); CALCIUM 7.7 mg/dL (8.5-10.1); CHLORIDE 113 mmol/L (98-107)
[2020-03-02 04:32] LABS: BASOPHILS % (AUTO) 0 % (0-1); EOSINOPHILS % (AUTO) 0 % (1-7); LYMPHOCYTES % (AUTO) 11 % (22-44); MEAN CORPUSCULAR HEMOGLOBIN 28.4 pg (27.0-34.8); MEAN PLATELET VOLUME 8.8 fL (7.4-10.4); MONOCYTES % (AUTO) 9 % (2-9); NEUTROPHILS % (AUTO) 80 % (42-75); PLATELET COUNT 213 x10^3/uL (130-400); RED BLOOD COUNT 4.58 x10^6/uL (3.82-5.3); RED CELL DISTRIBUTION WIDTH 13.8 % (9.6-15.2)
[2020-03-02 04:33] LABS: ALANINE AMINOTRANSFERASE 48 U/L (12-78); ALKALINE PHOSPHATASE 62 U/L (45-117); BILIRUBIN,TOTAL 0.5 mg/dL (0.2-1.0); TOTAL PROTEIN 6.5 g/dL (6.4-8.2)
[2020-03-02 04:40] LABS: MD NO
[2020-03-02] MEDS: FENTANYL PF 1,000 MCG in SODIUM CHLORIDE 0.9% 80 ML IV PRN ×2 (05:40→18:21)
[2020-03-02] MEDS: OMEPRAZOLE 20 MG CAPSULE.DR PO SCH (05:48)
[2020-03-02] MEDS ORDERED: POTASSIUM CHLORIDE 10% 40 MEQ/30 ML UDC PO ONE (07:00)
[2020-03-02] MEDS: ZINC SULFATE 220 MG CAPSULE PO SCH (07:34)
[2020-03-02] MEDS: metFORMIN 500 MG TABLET PO SCH ×2 (07:34→16:25)
[2020-03-02] MEDS: ASCORBIC ACID 500 MG TABLET PO SCH ×2 (07:34→21:02)
[2020-03-02] MEDS: FUROSEMIDE 20 MG/2 ML IV SCH ×2 (07:35→16:24)
[2020-03-02] MEDS: CHOLECALCIFEROL 5,000u TAB PO SCH (07:35)
[2020-03-02] MEDS: SODIUM CHLORIDE FLUSH 10ML SYR IVF SCH ×2 (07:35→21:00)
[2020-03-02] MEDS: TAMSULOSIN 0.4 MG CAP.ER.24H PO SCH (07:35)
[2020-03-02] MEDS: DEXAMETHASONE 4 MG/ML, 1ML IVPush SCH (07:35)
[2020-03-02] MEDS: DOXYCYCLINE 50 MG/5 ML ORAL SUSP NG SCH ×2 (07:37→21:00)
[2020-03-02] MEDS: SITAGLIPTIN PHOS HOMEMEDPO SCH (07:55)
[2020-03-02] MEDS: METFORMIN HCL HOMEMEDPO SCH (07:55)
[2020-03-02] MEDS: INSULIN LISPRO 100 UNITS/ML, PEN SQ-INSULIN SCH ×4 (07:56→21:03)
[2020-03-02] MEDS: CEFTRIAXONE PMX 1GM/50ML 50 ML IV SCH (09:58)
[2020-03-02] MEDS: ENOXAPARIN 40 MG/0.4 ML SQ SCH (11:03)
[2020-03-02] MEDS: REMDESIVIR 100 MG in SODIUM CHLORIDE 0.9% 250 ML IVPB SCH (12:56)
[2020-03-02] MEDS: AMLODIPINE 10 MG TAB PO SCH (19:36)
[2020-03-03] MEDS: PROPOFOL 100 ML IV PRN ×3 (04:19→19:23)
[2020-03-03 04:56] LABS: BASOPHILS % (AUTO) 0 % (0-1); EOSINOPHILS % (AUTO) 0 % (1-7); LYMPHOCYTES % (AUTO) 14 % (22-44); MD NO; MEAN CORPUSCULAR HEMOGLOBIN 28.1 pg (27.0-34.8); MEAN CORPUSCULAR HGB CONC 32.8 g/dL (32.4-35.8); MEAN PLATELET VOLUME 8.7 fL (7.4-10.4); MONOCYTES % (AUTO) 10 % (2-9); NEUTROPHILS % (AUTO) 76 % (42-75); PLATELET COUNT 229 x10^3/uL (130-400); RED BLOOD COUNT 4.79 x10^6/uL (3.82-5.3); RED CELL DISTRIBUTION WIDTH 14.1 % (9.6-15.2)
[2020-03-03 05:00] VITALS: BP 99/65
[2020-03-03 05:05] LABS: ALBUMIN 2.1 g/dL (3.4-5.0); ANION GAP 7 mmol/L (5-15); CALCIUM 7.8 mg/dL (8.5-10.1); CHLORIDE 114 mmol/L (98-107)
[2020-03-03 05:09] LABS: ALANINE AMINOTRANSFERASE 40 U/L (12-78); ALKALINE PHOSPHATASE 63 U/L (45-117); BILIRUBIN,TOTAL 0.4 mg/dL (0.2-1.0); CREATININE 0.95 mg/dL (0.55-1.02); TOTAL PROTEIN 6.6 g/dL (6.4-8.2)
[2020-03-03] MEDS: DOXYCYCLINE 50 MG/5 ML ORAL SUSP NG SCH ×2 (08:31→20:56)
[2020-03-03] MEDS: FLUCONAZOLE 200 MG/100 ML 100 ML IV SCH (08:32)
[2020-03-03] MEDS: DEXAMETHASONE 4 MG/ML, 1ML IVPush SCH (08:32)
[2020-03-03] MEDS: FUROSEMIDE 20 MG/2 ML IV SCH ×2 (08:33→16:28)
[2020-03-03] MEDS: ASCORBIC ACID 500 MG TABLET PO SCH ×2 (08:33→20:56)
[2020-03-03] MEDS: ZINC SULFATE 220 MG CAPSULE PO SCH (08:33)
[2020-03-03] MEDS: metFORMIN 500 MG TABLET PO SCH ×2 (08:34→16:27)
[2020-03-03] MEDS: INSULIN GLARGINE 100 UNITS/ML, PEN SQ-INSULIN SCH ×2 (08:35→19:21)
[2020-03-03] MEDS: INSULIN LISPRO 100 UNITS/ML, PEN SQ-INSULIN SCH ×4 (08:35→23:05)
[2020-03-03] MEDS: NOREPINEPHRINE 8 MG in SODIUM CHLORIDE 0.9% 242 ML IV PRN (08:37)
[2020-03-03] MEDS: FENTANYL PF 1,000 MCG in SODIUM CHLORIDE 0.9% 80 ML IV PRN (08:38)
[2020-03-03] MEDS: SITAGLIPTIN PHOS HOMEMEDPO SCH (08:40)
[2020-03-03] MEDS: METFORMIN HCL HOMEMEDPO SCH (08:40)
[2020-03-03] MEDS: TAMSULOSIN 0.4 MG CAP.ER.24H PO SCH (08:40)
[2020-03-03] MEDS: SODIUM CHLORIDE FLUSH 10ML SYR IVF SCH ×2 (08:41→20:55)
[2020-03-03] MEDS: CHOLECALCIFEROL 5,000u TAB PO SCH (09:00)
[2020-03-03] MEDS: METHYLNALTREXONE 12 MG/0.6 ML SYR SQ SCH (11:08)
[2020-03-03] MEDS: ENOXAPARIN 40 MG/0.4 ML SQ SCH (11:09)
[2020-03-03] MEDS: CEFTRIAXONE PMX 1GM/50ML 50 ML IV SCH (11:09)
[2020-03-03] MEDS ORDERED: FENTANYL PF 100 MCG/2ML IVPush ONE (12:30)
[2020-03-03] MEDS ORDERED: ETOMIDATE 20 MG/10 ML IVPush ONE (12:30)
[2020-03-03] MEDS ORDERED: MIDAZOLAM 1 MG/ML, 5ML IVPush ONE (12:30)
[2020-03-03] MEDS: REMDESIVIR 100 MG in SODIUM CHLORIDE 0.9% 250 ML IVPB SCH (12:55)
[2020-03-03] MEDS: AMLODIPINE 10 MG TAB PO SCH (19:15)
[2020-03-04] MEDS: PROPOFOL 100 ML IV PRN ×3 (01:39→16:19)
[2020-03-04] MEDS: FENTANYL PF 1,000 MCG in SODIUM CHLORIDE 0.9% 80 ML IV PRN ×3 (02:04→11:17)
[2020-03-04] MEDS: INSULIN LISPRO 100 UNITS/ML, PEN SQ-INSULIN SCH ×4 (04:37→21:29)
[2020-03-04 05:00] VITALS: BP 97/58
[2020-03-04 05:03] LABS: BASOPHILS % (AUTO) 0 % (0-1); EOSINOPHILS % (AUTO) 0 % (1-7); LYMPHOCYTES % (AUTO) 11 % (22-44); MEAN CORPUSCULAR HEMOGLOBIN 27.8 pg (27.0-34.8); MEAN CORPUSCULAR HGB CONC 32.7 g/dL (32.4-35.8); MEAN PLATELET VOLUME 8.8 fL (7.4-10.4); MONOCYTES % (AUTO) 10 % (2-9); NEUTROPHILS % (AUTO) 79 % (42-75); PLATELET COUNT 229 x10^3/uL (130-400); RED BLOOD COUNT 4.63 x10^6/uL (3.82-5.3)
[2020-03-04 05:09] LABS: ANION GAP 9 mmol/L (5-15); CALCIUM 9.5 mg/dL (8.5-10.1); CHLORIDE 114 mmol/L (98-107); CREATININE 0.87 mg/dL (0.55-1.02); TRIGLYCERIDES 224 mg/dL (50-200)
[2020-03-04 05:12] LABS: MD NO
[2020-03-04] MEDS: SITAGLIPTIN PHOS HOMEMEDPO SCH (08:06)
[2020-03-04] MEDS: METFORMIN HCL HOMEMEDPO SCH (08:06)
[2020-03-04] MEDS: TAMSULOSIN 0.4 MG CAP.ER.24H PO SCH (08:14)
[2020-03-04] MEDS: DEXAMETHASONE 4 MG/ML, 1ML IVPush SCH (08:19)
[2020-03-04] MEDS: metFORMIN 500 MG TABLET PO SCH ×2 (08:19→16:31)
[2020-03-04] MEDS: ASCORBIC ACID 500 MG TABLET PO SCH ×2 (08:20→21:31)
[2020-03-04] MEDS: CHOLECALCIFEROL 5,000u TAB PO SCH (08:20)
[2020-03-04] MEDS: ZINC SULFATE 220 MG CAPSULE PO SCH (08:20)
[2020-03-04] MEDS: FUROSEMIDE 20 MG/2 ML IV SCH ×2 (08:20→16:32)
[2020-03-04] MEDS: DOXYCYCLINE 50 MG/5 ML ORAL SUSP NG SCH ×2 (08:20→21:30)
[2020-03-04] MEDS: SODIUM CHLORIDE FLUSH 10ML SYR IVF SCH ×2 (08:21→21:31)
[2020-03-04] MEDS: FLUCONAZOLE 200 MG/100 ML 100 ML IV SCH (08:21)
[2020-03-04] MEDS: NOREPINEPHRINE 8 MG in SODIUM CHLORIDE 0.9% 242 ML IV PRN (09:49)
[2020-03-04] MEDS: CEFTRIAXONE PMX 1GM/50ML 50 ML IV SCH (09:50)
[2020-03-04] MEDS: ENOXAPARIN 40 MG/0.4 ML SQ SCH (11:02)
[2020-03-04] MEDS ORDERED: INSULIN GLARGINE 100 UNITS/ML, PEN SQ-INSULIN SCH (19:00)
[2020-03-04] MEDS: AMLODIPINE 10 MG TAB PO SCH (20:09)
[2020-03-05 05:00] VITALS: BP_SYST 124; BP_SYST 130; BP_DIAS 55; BP_DIAS 85
[2020-03-05] MEDS: INSULIN LISPRO 100 UNITS/ML, PEN SQ-INSULIN SCH ×4 (05:06→22:09)
[2020-03-05] MEDS: PROPOFOL 100 ML IV PRN ×2 (05:07→15:04)
[2020-03-05 05:24] LABS: BASOPHILS % (AUTO) 0 % (0-1); EOSINOPHILS % (AUTO) 0 % (1-7); LYMPHOCYTES % (AUTO) 11 % (22-44); MEAN CORPUSCULAR HEMOGLOBIN 28.2 pg (27.0-34.8); MEAN CORPUSCULAR HGB CONC 33.3 g/dL (32.4-35.8); MEAN PLATELET VOLUME 8.8 fL (7.4-10.4); MONOCYTES % (AUTO) 8 % (2-9); NEUTROPHILS % (AUTO) 81 % (42-75); PLATELET COUNT 219 x10^3/uL (130-400); RED BLOOD COUNT 4.68 x10^6/uL (3.82-5.3); RED CELL DISTRIBUTION WIDTH 14.2 % (9.6-15.2)
[2020-03-05 05:31] LABS: ANION GAP 9 mmol/L (5-15); CHLORIDE 109 mmol/L (98-107); CREATININE 0.97 mg/dL (0.55-1.02)
[2020-03-05 05:55] LABS: MD NO
[2020-03-05] MEDS: METHYLNALTREXONE 12 MG/0.6 ML SYR SQ SCH (07:01)
[2020-03-05] MEDS: TAMSULOSIN 0.4 MG CAP.ER.24H PO SCH (07:18)
[2020-03-05] MEDS: METFORMIN HCL HOMEMEDPO SCH (07:18)
[2020-03-05] MEDS: SITAGLIPTIN PHOS HOMEMEDPO SCH (07:18)
[2020-03-05] MEDS: FUROSEMIDE 20 MG/2 ML IV SCH ×2 (07:43→15:38)
[2020-03-05] MEDS: metFORMIN 500 MG TABLET PO SCH ×2 (07:43→15:37)
[2020-03-05] MEDS: ASCORBIC ACID 500 MG TABLET PO SCH ×2 (07:43→20:26)
[2020-03-05] MEDS: DEXAMETHASONE 4 MG/ML, 1ML IVPush SCH (07:43)
[2020-03-05] MEDS: SODIUM CHLORIDE FLUSH 10ML SYR IVF SCH ×2 (07:44→20:27)
[2020-03-05] MEDS: CHOLECALCIFEROL 5,000u TAB PO SCH (07:44)
[2020-03-05] MEDS: FLUCONAZOLE 200 MG/100 ML 100 ML IV SCH (07:45)
[2020-03-05] MEDS: DOXYCYCLINE 50 MG/5 ML ORAL SUSP NG SCH ×2 (07:46→20:26)
[2020-03-05] MEDS: ZINC SULFATE 220 MG CAPSULE PO SCH (07:48)
[2020-03-05] MEDS: FENTANYL PF 1,000 MCG in SODIUM CHLORIDE 0.9% 80 ML IV PRN (07:54)
[2020-03-05] MEDS: ENOXAPARIN 40 MG/0.4 ML SQ SCH (09:35)
[2020-03-05] MEDS: CEFTRIAXONE PMX 1GM/50ML 50 ML IV SCH (09:35)
[2020-03-05] MEDS: INSULIN GLARGINE 100 UNITS/ML, PEN SQ-INSULIN SCH (18:14)
[2020-03-05] MEDS: AMLODIPINE 10 MG TAB PO SCH (20:22)
[2020-03-06] MEDS: PROPOFOL 100 ML IV PRN ×2 (03:18→08:29)
[2020-03-06 04:08] LABS: BASOPHILS % (AUTO) 0 % (0-1); EOSINOPHILS % (AUTO) 0 % (1-7); LYMPHOCYTES % (AUTO) 9 % (22-44); MEAN CORPUSCULAR HEMOGLOBIN 28.1 pg (27.0-34.8); MEAN CORPUSCULAR HGB CONC 32.9 g/dL (32.4-35.8); MEAN PLATELET VOLUME 8.9 fL (7.4-10.4); MONOCYTES % (AUTO) 7 % (2-9); NEUTROPHILS % (AUTO) 84 % (42-75); PLATELET COUNT 198 x10^3/uL (130-400); RED BLOOD COUNT 4.52 x10^6/uL (3.82-5.3)
[2020-03-06 04:09] LABS: ANION GAP 11 mmol/L (5-15); BILIRUBIN,TOTAL 0.4 mg/dL (0.2-1.0); CALCIUM 11.1 mg/dL (8.5-10.1); CHLORIDE 108 mmol/L (98-107); CREATININE 1.12 mg/dL (0.55-1.02)
[2020-03-06 04:17] LABS: MD NO
[2020-03-06] MEDS: INSULIN LISPRO 100 UNITS/ML, PEN SQ-INSULIN SCH ×4 (04:34→22:12)
[2020-03-06 05:00] VITALS: BP 98/66
[2020-03-06] MEDS: CHOLECALCIFEROL 5,000u TAB PO SCH (08:04)
[2020-03-06] MEDS: metFORMIN 500 MG TABLET PO SCH ×2 (08:04→16:28)
[2020-03-06] MEDS: TAMSULOSIN 0.4 MG CAP.ER.24H PO SCH (08:04)
[2020-03-06] MEDS: ASCORBIC ACID 500 MG TABLET PO SCH ×2 (08:04→22:10)
[2020-03-06] MEDS: ZINC SULFATE 220 MG CAPSULE PO SCH (08:04)
[2020-03-06] MEDS: DEXAMETHASONE 4 MG/ML, 1ML IVPush SCH (08:04)
[2020-03-06] MEDS: METFORMIN HCL HOMEMEDPO SCH (08:05)
[2020-03-06] MEDS: SITAGLIPTIN PHOS HOMEMEDPO SCH (08:05)
[2020-03-06] MEDS: SODIUM CHLORIDE FLUSH 10ML SYR IVF SCH ×2 (08:06→22:11)
[2020-03-06] MEDS: DOXYCYCLINE 50 MG/5 ML ORAL SUSP NG SCH ×2 (08:08→22:10)
[2020-03-06] MEDS: INSULIN GLARGINE 100 UNITS/ML, PEN SQ-INSULIN SCH ×2 (09:05→22:12)
[2020-03-06] MEDS: CEFTRIAXONE PMX 1GM/50ML 50 ML IV SCH (09:58)
[2020-03-06] MEDS: ENOXAPARIN 40 MG/0.4 ML SQ SCH (09:58)
[2020-03-06] MEDS ORDERED: PROPOFOL 100 ML IV PRN (11:00)
[2020-03-06] MEDS ORDERED: PAMIDRONATE 30 MG in SODIUM CHLORIDE 0.9% 250 ML IV ONE (16:00)
[2020-03-06] MEDS ORDERED: AMLODIPINE 2.5 MG TABLET PO SCH (21:00)
[2020-03-07] MEDS: INSULIN LISPRO 100 UNITS/ML, PEN SQ-INSULIN SCH ×4 (03:55→21:10)
[2020-03-07 05:00] VITALS: BP 115/69
[2020-03-07 06:18] LABS: BASOPHILS % (AUTO) 0 % (0-1); EOSINOPHILS % (AUTO) 1 % (1-7); LYMPHOCYTES % (AUTO) 4 % (22-44); MEAN CORPUSCULAR HEMOGLOBIN 28.1 pg (27.0-34.8); MEAN PLATELET VOLUME 8.8 fL (7.4-10.4); MONOCYTES % (AUTO) 4 % (2-9); NEUTROPHILS % (AUTO) 91 % (42-75); PLATELET COUNT 204 x10^3/uL (130-400); RED BLOOD COUNT 4.48 x10^6/uL (3.82-5.3)
[2020-03-07 06:24] LABS: CHLORIDE 109 mmol/L (98-107); MD NO
[2020-03-07 06:43] LABS: ANION GAP 9 mmol/L (5-15); BILIRUBIN,TOTAL 0.5 mg/dL (0.2-1.0); CALCIUM 12.1 mg/dL (8.5-10.1); CREATININE 0.86 mg/dL (0.55-1.02); TRIGLYCERIDES 443 mg/dL (50-200)
[2020-03-07] MEDS ORDERED: SODIUM CHLORIDE 0.9% 1,000ML IVBOLUS ONE (07:00)
[2020-03-07] MEDS: METHYLNALTREXONE 12 MG/0.6 ML SYR SQ SCH (07:00)
[2020-03-07] MEDS ORDERED: FUROSEMIDE 40 MG/4 ML IV ONE (07:00)
[2020-03-07] MEDS: ZINC SULFATE 220 MG CAPSULE PO SCH (08:23)
[2020-03-07] MEDS: ASCORBIC ACID 500 MG TABLET PO SCH ×2 (08:23→21:09)
[2020-03-07] MEDS: DOXYCYCLINE 50 MG/5 ML ORAL SUSP NG SCH ×2 (08:23→21:09)
[2020-03-07] MEDS: INSULIN GLARGINE 100 UNITS/ML, PEN SQ-INSULIN SCH ×2 (08:23→20:23)
[2020-03-07] MEDS: SODIUM CHLORIDE FLUSH 10ML SYR IVF SCH ×2 (08:23→21:00)
[2020-03-07] MEDS: DEXAMETHASONE 4 MG/ML, 1ML IVPush SCH (08:24)
[2020-03-07] MEDS: TAMSULOSIN 0.4 MG CAP.ER.24H PO SCH (08:24)
[2020-03-07] MEDS: metFORMIN 500 MG TABLET PO SCH ×2 (08:24→16:36)
[2020-03-07] MEDS: CEFTRIAXONE PMX 1GM/50ML 50 ML IV SCH (09:34)
[2020-03-07] MEDS: MIDAZOLAM HCL 50 MG in SODIUM CHLORIDE 0.9% 40 ML IV PRN ×2 (09:35→20:55)
[2020-03-07] MEDS: ENOXAPARIN 40 MG/0.4 ML SQ SCH (10:33)
[2020-03-07] MEDS: FLUCONAZOLE 200 MG/100 ML 100 ML IV SCH (10:33)
[2020-03-08] MEDS: INSULIN LISPRO 100 UNITS/ML, PEN SQ-INSULIN SCH ×4 (03:34→21:39)
[2020-03-08] MEDS: MIDAZOLAM HCL 50 MG in SODIUM CHLORIDE 0.9% 40 ML IV PRN ×2 (04:44→22:23)
[2020-03-08 05:33] LABS: CHLORIDE 108 mmol/L (98-107)
[2020-03-08 05:42] LABS: ANION GAP 6 mmol/L (5-15); BILIRUBIN,TOTAL 0.5 mg/dL (0.2-1.0); CALCIUM 11.5 mg/dL (8.5-10.1); CREATININE 1.05 mg/dL (0.55-1.02)
[2020-03-08 05:53] VITALS: BP 98/55
[2020-03-08 06:13] LABS: BASOPHILS % (AUTO) 0 % (0-1); EOSINOPHILS % (AUTO) 1 % (1-7); LYMPHOCYTES % (AUTO) 5 % (22-44); MEAN CORPUSCULAR HEMOGLOBIN 27.8 pg (27.0-34.8); MEAN CORPUSCULAR HGB CONC 32.2 g/dL (32.4-35.8); MEAN PLATELET VOLUME 9.8 fL (7.4-10.4); MONOCYTES % (AUTO) 4 % (2-9); NEUTROPHILS % (AUTO) 91 % (42-75); PLATELET COUNT 183 x10^3/uL (130-400); RED BLOOD COUNT 4.25 x10^6/uL (3.82-5.3); RED CELL DISTRIBUTION WIDTH 14.1 % (9.6-15.2)
[2020-03-08 06:26] LABS: MD NO
[2020-03-08] MEDS ORDERED: FUROSEMIDE 40 MG/4 ML IV ONE (07:00)
[2020-03-08] MEDS ORDERED: SODIUM CHLORIDE 0.9%, 500ML IVBOLUS ONE (07:00)
[2020-03-08] MEDS: ASCORBIC ACID 500 MG TABLET PO SCH ×2 (07:41→20:20)
[2020-03-08] MEDS: metFORMIN 500 MG TABLET PO SCH ×2 (07:41→16:17)
[2020-03-08] MEDS: DEXAMETHASONE 4 MG/ML, 1ML IVPush SCH (07:41)
[2020-03-08] MEDS: TAMSULOSIN 0.4 MG CAP.ER.24H PO SCH (07:41)
[2020-03-08] MEDS: SODIUM CHLORIDE FLUSH 10ML SYR IVF SCH ×2 (07:42→20:20)
[2020-03-08] MEDS: ZINC SULFATE 220 MG CAPSULE PO SCH (07:42)
[2020-03-08] MEDS: DOXYCYCLINE 50 MG/5 ML ORAL SUSP NG SCH (09:05)
[2020-03-08] MEDS: FLUCONAZOLE 200 MG/100 ML 100 ML IV SCH (09:05)
[2020-03-08] MEDS: INSULIN GLARGINE 100 UNITS/ML, PEN SQ-INSULIN SCH ×2 (09:07→18:59)
[2020-03-08] MEDS: FENTANYL PF 1,000 MCG in SODIUM CHLORIDE 0.9% 80 ML IV PRN ×2 (09:50→22:23)
[2020-03-08] MEDS: NOREPINEPHRINE 8 MG in SODIUM CHLORIDE 0.9% 242 ML IV PRN (10:48)
[2020-03-08] MEDS: ENOXAPARIN 40 MG/0.4 ML SQ SCH (10:54)
[2020-03-09] MEDS: INSULIN LISPRO 100 UNITS/ML, PEN SQ-INSULIN SCH ×4 (03:23→20:53)
[2020-03-09 04:26] LABS: BASOPHILS % (AUTO) 0 % (0-1); EOSINOPHILS % (AUTO) 0 % (1-7); LYMPHOCYTES % (AUTO) 4 % (22-44); MEAN CORPUSCULAR HEMOGLOBIN 28.6 pg (27.0-34.8); MEAN CORPUSCULAR HGB CONC 33.2 g/dL (32.4-35.8); MEAN PLATELET VOLUME 9.4 fL (7.4-10.4); MONOCYTES % (AUTO) 5 % (2-9); NEUTROPHILS % (AUTO) 90 % (42-75); PLATELET COUNT 200 x10^3/uL (130-400); RED BLOOD COUNT 4.18 x10^6/uL (3.82-5.3); RED CELL DISTRIBUTION WIDTH 14.1 % (9.6-15.2)
[2020-03-09 04:36] LABS: ANION GAP 6 mmol/L (5-15); CALCIUM 11.5 mg/dL (8.5-10.1); CHLORIDE 105 mmol/L (98-107); CREATININE 0.91 mg/dL (0.55-1.02)
[2020-03-09 04:37] LABS: BILIRUBIN,TOTAL 0.4 mg/dL (0.2-1.0)
[2020-03-09 04:44] LABS: MD NO
[2020-03-09 04:59] VITALS: BP 111/67
[2020-03-09] MEDS ORDERED: PAMIDRONATE 3 MG/ML, 10ML IV ONE (07:00)
[2020-03-09] MEDS ORDERED: SODIUM CHLORIDE 0.9% IV ONE (07:00)
[2020-03-09] MEDS ORDERED: PAMIDRONATE IV ONE (07:00)
[2020-03-09] MEDS: INSULIN GLARGINE 100 UNITS/ML, PEN SQ-INSULIN SCH ×2 (07:04→20:53)
[2020-03-09] MEDS: CINACALCET 30 MG TABLET PO SCH ×2 (07:35→21:52)
[2020-03-09] MEDS: ASCORBIC ACID 500 MG TABLET PO SCH ×2 (07:35→20:47)
[2020-03-09] MEDS: ZINC SULFATE 220 MG CAPSULE PO SCH (07:35)
[2020-03-09] MEDS: TAMSULOSIN 0.4 MG CAP.ER.24H PO SCH (07:35)
[2020-03-09] MEDS: DEXAMETHASONE 4 MG/ML, 1ML IVPush SCH (07:35)
[2020-03-09] MEDS: SODIUM CHLORIDE FLUSH 10ML SYR IVF SCH ×2 (07:36→20:48)
[2020-03-09] MEDS: QUETIAPINE 25MG TABLET PO SCH ×3 (07:36→20:47)
[2020-03-09] MEDS: FENTANYL PF 1,000 MCG in SODIUM CHLORIDE 0.9% 80 ML IV PRN ×2 (08:05→19:39)
--- NOTE | 2020-03-09 10:01 | NUR ---
TF per RD updated recs 03/09: Vital AF 1.2 w/ end goal rate of 45mL/hr (off propofol) Addendum: 03/09/20 at [address] Amended: Links added.
[2020-03-09] MEDS: FLUCONAZOLE 200 MG/100 ML 100 ML IV SCH (10:05)
[2020-03-09] MEDS: ENOXAPARIN 40 MG/0.4 ML SQ SCH (10:05)
[2020-03-09] MEDS: MEROPENEM 1 GM in SODIUM CHLORIDE 0.9% 100 ML IV SCH ×2 (13:29→21:46)
[2020-03-10] MEDS: INSULIN LISPRO 100 UNITS/ML, PEN SQ-INSULIN SCH ×4 (04:27→22:17)
[2020-03-10 04:42] LABS: BASOPHILS % (AUTO) 0 % (0-1); EOSINOPHILS % (AUTO) 0 % (1-7); LYMPHOCYTES % (AUTO) 5 % (22-44); MEAN CORPUSCULAR HEMOGLOBIN 28.4 pg (27.0-34.8); MEAN CORPUSCULAR HGB CONC 32.8 g/dL (32.4-35.8); MEAN PLATELET VOLUME 9.9 fL (7.4-10.4); MONOCYTES % (AUTO) 6 % (2-9); NEUTROPHILS % (AUTO) 88 % (42-75); PLATELET COUNT 173 x10^3/uL (130-400); RED CELL DISTRIBUTION WIDTH 14.2 % (9.6-15.2)
[2020-03-10 04:50] LABS: ANION GAP 3 mmol/L (5-15); CALCIUM 10.1 mg/dL (8.5-10.1); CHLORIDE 109 mmol/L (98-107); CREATININE 0.71 mg/dL (0.55-1.02); TRIGLYCERIDES 281 mg/dL (50-200)
[2020-03-10 04:51] LABS: BILIRUBIN,TOTAL 0.3 mg/dL (0.2-1.0)
[2020-03-10 04:52] LABS: MD NO
[2020-03-10] MEDS: MEROPENEM 1 GM in SODIUM CHLORIDE 0.9% 100 ML IV SCH (05:45)
[2020-03-10 06:04] VITALS: BP 101/65
[2020-03-10] MEDS: DEXAMETHASONE 4 MG/ML, 1ML IVPush SCH (07:32)
[2020-03-10] MEDS: INSULIN GLARGINE 100 UNITS/ML, PEN SQ-INSULIN SCH ×2 (07:41→18:17)
[2020-03-10] MEDS: ASCORBIC ACID 500 MG TABLET PO SCH ×2 (09:29→22:15)
[2020-03-10] MEDS: ZINC SULFATE 220 MG CAPSULE PO SCH (09:30)
[2020-03-10] MEDS: SODIUM CHLORIDE FLUSH 10ML SYR IVF SCH ×2 (09:30→22:17)
[2020-03-10] MEDS: QUETIAPINE 25MG TABLET PO SCH ×3 (09:30→22:15)
[2020-03-10] MEDS: TAMSULOSIN 0.4 MG CAP.ER.24H PO SCH (09:30)
[2020-03-10] MEDS ORDERED: FUROSEMIDE 20 MG/2 ML IV ONE (10:00)
[2020-03-10] MEDS: FENTANYL PF 1,000 MCG in SODIUM CHLORIDE 0.9% 80 ML IV PRN ×2 (10:12→20:09)
[2020-03-10] MEDS ORDERED: FUROSEMIDE 20 MG/2 ML ONE (10:17)
[2020-03-10] MEDS: ENOXAPARIN 40 MG/0.4 ML SQ SCH (10:25)
[2020-03-10] MEDS: FLUCONAZOLE 200 MG/100 ML 100 ML IV SCH (10:25)
[2020-03-10] MEDS: LEVOFLOXACIN/PMX 500MG/100ML 100 ML IV SCH (11:47)
[2020-03-10] MEDS: MIDAZOLAM HCL 50 MG in SODIUM CHLORIDE 0.9% 40 ML IV PRN (18:45)
[2020-03-11] MEDS: INSULIN LISPRO 100 UNITS/ML, PEN SQ-INSULIN SCH ×4 (04:04→21:03)
[2020-03-11 05:00] VITALS: BP 92/54
[2020-03-11 06:16] LABS: BASOPHILS % (AUTO) 0 % (0-1); EOSINOPHILS % (AUTO) 1 % (1-7); LYMPHOCYTES % (AUTO) 7 % (22-44); MEAN CORPUSCULAR HEMOGLOBIN 28.2 pg (27.0-34.8); MEAN CORPUSCULAR HGB CONC 32.5 g/dL (32.4-35.8); MEAN PLATELET VOLUME 9.8 fL (7.4-10.4); MONOCYTES % (AUTO) 7 % (2-9); NEUTROPHILS % (AUTO) 84 % (42-75); PLATELET COUNT 171 x10^3/uL (130-400); RED BLOOD COUNT 4.11 x10^6/uL (3.82-5.3)
[2020-03-11 06:19] LABS: MD NO
[2020-03-11] MEDS: FENTANYL PF 1,000 MCG in SODIUM CHLORIDE 0.9% 80 ML IV PRN ×2 (06:25→18:56)
[2020-03-11 06:29] LABS: ANION GAP 4 mmol/L (5-15); CALCIUM 10.2 mg/dL (8.5-10.1); CHLORIDE 105 mmol/L (98-107)
[2020-03-11 06:35] LABS: BILIRUBIN,TOTAL 0.3 mg/dL (0.2-1.0); CREATININE 0.71 mg/dL (0.55-1.02)
[2020-03-11] MEDS: ASCORBIC ACID 500 MG TABLET PO SCH ×2 (07:26→20:42)
[2020-03-11] MEDS: ZINC SULFATE 220 MG CAPSULE PO SCH (07:26)
[2020-03-11] MEDS: TAMSULOSIN 0.4 MG CAP.ER.24H PO SCH (07:26)
[2020-03-11] MEDS: SODIUM CHLORIDE FLUSH 10ML SYR IVF SCH ×2 (07:27→21:01)
[2020-03-11] MEDS: QUETIAPINE 25MG TABLET PO SCH ×3 (07:27→20:42)
[2020-03-11] MEDS: INSULIN GLARGINE 100 UNITS/ML, PEN SQ-INSULIN SCH ×2 (07:28→21:00)
[2020-03-11] MEDS ORDERED: FUROSEMIDE 20 MG/2 ML IV ONE (10:30)
[2020-03-11] MEDS: ENOXAPARIN 40 MG/0.4 ML SQ SCH (11:41)
[2020-03-11] MEDS: LEVOFLOXACIN/PMX 500MG/100ML 100 ML IV SCH (11:45)
[2020-03-11] MEDS: MIDAZOLAM HCL 50 MG in SODIUM CHLORIDE 0.9% 40 ML IV PRN (18:55)
[2020-03-12] MEDS: FENTANYL PF 1,000 MCG in SODIUM CHLORIDE 0.9% 80 ML IV PRN ×3 (01:35→18:23)
[2020-03-12] MEDS: INSULIN LISPRO 100 UNITS/ML, PEN SQ-INSULIN SCH ×4 (04:20→21:17)
[2020-03-12 04:32] LABS: BASOPHILS % (AUTO) 0 % (0-1); EOSINOPHILS % (AUTO) 3 % (1-7); LYMPHOCYTES % (AUTO) 10 % (22-44); MEAN CORPUSCULAR HEMOGLOBIN 28.4 pg (27.0-34.8); MEAN PLATELET VOLUME 9.6 fL (7.4-10.4); MONOCYTES % (AUTO) 7 % (2-9); NEUTROPHILS % (AUTO) 81 % (42-75); PLATELET COUNT 189 x10^3/uL (130-400); RED BLOOD COUNT 4.17 x10^6/uL (3.82-5.3)
[2020-03-12 04:40] LABS: MD NO
[2020-03-12 04:41] LABS: ANION GAP 3 mmol/L (5-15); BILIRUBIN,TOTAL 0.4 mg/dL (0.2-1.0); CALCIUM 9.9 mg/dL (8.5-10.1); CHLORIDE 105 mmol/L (98-107)
[2020-03-12 05:00] VITALS: BP 108/66
[2020-03-12] MEDS: ASCORBIC ACID 500 MG TABLET PO SCH (09:34)
[2020-03-12] MEDS: QUETIAPINE 25MG TABLET PO SCH ×3 (09:34→20:25)
[2020-03-12] MEDS: SODIUM CHLORIDE FLUSH 10ML SYR IVF SCH ×2 (09:34→20:27)
[2020-03-12] MEDS: TAMSULOSIN 0.4 MG CAP.ER.24H PO SCH (09:35)
[2020-03-12] MEDS: ZINC SULFATE 220 MG CAPSULE PO SCH (09:35)
[2020-03-12] MEDS: INSULIN GLARGINE 100 UNITS/ML, PEN SQ-INSULIN SCH ×2 (09:36→20:28)
[2020-03-12] MEDS: ENOXAPARIN 40 MG/0.4 ML SQ SCH (09:37)
[2020-03-12] MEDS ORDERED: QUETIAPINE 25MG TABLET PO ONE (11:00)
[2020-03-12] MEDS: GUAIFENESIN 100 MG/5 ML, 10ML UDC PO SCH ×3 (11:30→22:55)
[2020-03-12] MEDS: FUROSEMIDE 40 MG/4 ML IV SCH ×2 (11:40→22:54)
[2020-03-12] MEDS ORDERED: LEVOFLOXACIN/PMX 500MG/100ML 100 ML IV SCH (12:00)
[2020-03-12] MEDS: SENNA/DOCUSATE TABLET NG PRN (20:24)
[2020-03-12] MEDS: ACETAMINOPHEN 325 MG TABLET PO PRN (20:25)
[2020-03-13] MEDS: FENTANYL PF 1,000 MCG in SODIUM CHLORIDE 0.9% 80 ML IV PRN ×3 (03:31→21:45)
[2020-03-13] MEDS: INSULIN LISPRO 100 UNITS/ML, PEN SQ-INSULIN SCH ×4 (04:39→20:18)
[2020-03-13 04:58] VITALS: BP 117/77
[2020-03-13] MEDS: GUAIFENESIN 100 MG/5 ML, 10ML UDC PO SCH ×4 (05:23→22:27)
[2020-03-13 07:11] LABS: BASOPHILS % (AUTO) 0 % (0-1); EOSINOPHILS % (AUTO) 2 % (1-7); LYMPHOCYTES % (AUTO) 10 % (22-44); MEAN CORPUSCULAR HEMOGLOBIN 28.3 pg (27.0-34.8); MEAN CORPUSCULAR HGB CONC 32.5 g/dL (32.4-35.8); MEAN PLATELET VOLUME 9.9 fL (7.4-10.4); MONOCYTES % (AUTO) 7 % (2-9); NEUTROPHILS % (AUTO) 81 % (42-75); PLATELET COUNT 182 x10^3/uL (130-400)
[2020-03-13 07:14] LABS: MD NO
[2020-03-13 07:17] LABS: ANION GAP 6 mmol/L (5-15); CALCIUM 7.9 mg/dL (8.5-10.1); CHLORIDE 110 mmol/L (98-107); CREATININE 0.53 mg/dL (0.55-1.02)
[2020-03-13] MEDS: SODIUM CHLORIDE FLUSH 10ML SYR IVF SCH ×2 (07:53→20:26)
[2020-03-13] MEDS: QUETIAPINE 25MG TABLET PO SCH ×3 (07:54→20:15)
[2020-03-13] MEDS: TAMSULOSIN 0.4 MG CAP.ER.24H PO SCH (07:54)
[2020-03-13] MEDS: INSULIN GLARGINE 100 UNITS/ML, PEN SQ-INSULIN SCH ×2 (07:55→21:00)
[2020-03-13] MEDS: NOREPINEPHRINE 8 MG in SODIUM CHLORIDE 0.9% 242 ML IV PRN ×2 (08:05→21:24)
[2020-03-13] MEDS: METHYLNALTREXONE 12 MG/0.6 ML SYR SQ PRN (08:05)
[2020-03-13 08:33] LABS: BILIRUBIN,TOTAL 0.4 mg/dL (0.2-1.0)
[2020-03-13 08:43] LABS: ALBUMIN 1.6 g/dL (3.4-5.0); TRIGLYCERIDES 203 mg/dL (50-200)
[2020-03-13 08:45] LABS: ALANINE AMINOTRANSFERASE 103 U/L (12-78)
[2020-03-13 08:53] LABS: ALKALINE PHOSPHATASE 56 U/L (45-117)
[2020-03-13] MEDS ORDERED: MAGNESIUM SULFATE PMX 2GM/50ML 50 ML IV ONE (10:30)
[2020-03-13] MEDS: FUROSEMIDE 40 MG/4 ML IV SCH ×2 (10:42→21:06)
[2020-03-13] MEDS: ENOXAPARIN 40 MG/0.4 ML SQ SCH (10:42)
[2020-03-13] MEDS: POTASSIUM CHLORIDE 20 MEQ TAB.ER.PRT PO SCH ×2 (10:42→21:05)
[2020-03-13] MEDS ORDERED: LEVOFLOXACIN IV SCH (12:00)
[2020-03-13] MEDS ORDERED: [UNRECOGNIZED DRUG - OTHER] IV SCH (12:00)
[2020-03-13] MEDS: MIDAZOLAM HCL 50 MG in SODIUM CHLORIDE 0.9% 40 ML IV PRN ×2 (12:36→21:23)
[2020-03-13] MEDS: DILTIAZEM 5 MG/ML, 5ML IVPush PRN (22:37)
[2020-03-14] MEDS: DILTIAZEM 5 MG/ML, 5ML IVPush PRN ×2 (02:21→18:12)
[2020-03-14] MEDS: INSULIN LISPRO 100 UNITS/ML, PEN SQ-INSULIN SCH ×4 (03:04→20:15)
[2020-03-14 03:43] LABS: BASOPHILS % (AUTO) 0 % (0-1); EOSINOPHILS % (AUTO) 2 % (1-7); LYMPHOCYTES % (AUTO) 10 % (22-44); MEAN CORPUSCULAR HEMOGLOBIN 28.1 pg (27.0-34.8); MEAN CORPUSCULAR HGB CONC 32.4 g/dL (32.4-35.8); MEAN PLATELET VOLUME 9.4 fL (7.4-10.4); MONOCYTES % (AUTO) 7 % (2-9); NEUTROPHILS % (AUTO) 81 % (42-75); PLATELET COUNT 226 x10^3/uL (130-400); RED BLOOD COUNT 4.29 x10^6/uL (3.82-5.3)
[2020-03-14 03:45] LABS: MD NO
[2020-03-14 03:56] LABS: ANION GAP 4 mmol/L (5-15); CALCIUM 9.3 mg/dL (8.5-10.1); CHLORIDE 100 mmol/L (98-107); CREATININE 0.65 mg/dL (0.55-1.02)
[2020-03-14 03:57] LABS: BILIRUBIN,TOTAL 0.5 mg/dL (0.2-1.0)
[2020-03-14 04:10] VITALS: BP 94/62
[2020-03-14] MEDS: GUAIFENESIN 100 MG/5 ML, 10ML UDC PO SCH ×3 (05:18→20:12)
[2020-03-14] MEDS: FENTANYL PF 1,000 MCG in SODIUM CHLORIDE 0.9% 80 ML IV PRN ×2 (08:39→18:07)
[2020-03-14] MEDS: TAMSULOSIN 0.4 MG CAP.ER.24H PO SCH (08:39)
[2020-03-14] MEDS: QUETIAPINE 25MG TABLET PO SCH ×3 (08:39→20:13)
[2020-03-14] MEDS: SODIUM CHLORIDE FLUSH 10ML SYR IVF SCH ×2 (08:41→20:13)
[2020-03-14] MEDS: INSULIN GLARGINE 100 UNITS/ML, PEN SQ-INSULIN SCH ×2 (08:41→20:14)
[2020-03-14] MEDS: NOREPINEPHRINE 8 MG in SODIUM CHLORIDE 0.9% 242 ML IV PRN ×2 (10:16→22:27)
[2020-03-14] MEDS: ENOXAPARIN 40 MG/0.4 ML SQ SCH (15:24)
[2020-03-15] MEDS: MIDAZOLAM HCL 50 MG in SODIUM CHLORIDE 0.9% 40 ML IV PRN ×2 (03:13→03:41)
[2020-03-15] MEDS: GUAIFENESIN 100 MG/5 ML, 10ML UDC PO SCH ×4 (03:13→20:41)
[2020-03-15] MEDS: INSULIN LISPRO 100 UNITS/ML, PEN SQ-INSULIN SCH ×4 (03:19→20:45)
[2020-03-15 04:17] VITALS: BP 100/66
[2020-03-15 05:00] LABS: BASOPHILS % (AUTO) 0 % (0-1); EOSINOPHILS % (AUTO) 2 % (1-7); LYMPHOCYTES % (AUTO) 8 % (22-44); MEAN CORPUSCULAR HEMOGLOBIN 28.5 pg (27.0-34.8); MEAN CORPUSCULAR HGB CONC 33.1 g/dL (32.4-35.8); MEAN PLATELET VOLUME 9.3 fL (7.4-10.4); MONOCYTES % (AUTO) 8 % (2-9); NEUTROPHILS % (AUTO) 82 % (42-75); PLATELET COUNT 196 x10^3/uL (130-400); RED BLOOD COUNT 3.92 x10^6/uL (3.82-5.3); RED CELL DISTRIBUTION WIDTH 14.1 % (9.6-15.2)
[2020-03-15 05:06] LABS: MD NO
[2020-03-15 05:07] LABS: ANION GAP 3 mmol/L (5-15); CALCIUM 9.1 mg/dL (8.5-10.1); CHLORIDE 103 mmol/L (98-107); CREATININE 0.61 mg/dL (0.55-1.02)
[2020-03-15 05:08] LABS: BILIRUBIN,TOTAL 0.6 mg/dL (0.2-1.0)
[2020-03-15] MEDS: FENTANYL PF 1,000 MCG in SODIUM CHLORIDE 0.9% 80 ML IV PRN ×3 (06:53→21:45)
[2020-03-15] MEDS: QUETIAPINE 25MG TABLET PO SCH ×3 (08:04→20:38)
[2020-03-15] MEDS: SODIUM CHLORIDE FLUSH 10ML SYR IVF SCH ×2 (08:04→20:41)
[2020-03-15] MEDS: TAMSULOSIN 0.4 MG CAP.ER.24H PO SCH (08:04)
[2020-03-15] MEDS: LEVOFLOXACIN/PMX 750MG/150ML 150 ML IV SCH (12:13)
[2020-03-15] MEDS ORDERED: FUROSEMIDE 40 MG/4 ML IV ONE (14:30)
[2020-03-15] MEDS: ENOXAPARIN 40 MG/0.4 ML SQ SCH (14:57)
[2020-03-15] MEDS ORDERED: MIDAZOLAM HCL 100 MG in SODIUM CHLORIDE 0.9% 80 ML IV PRN (17:30)
[2020-03-15] MEDS: INSULIN GLARGINE 100 UNITS/ML, PEN SQ-INSULIN SCH (21:37)
[2020-03-16] MEDS: GUAIFENESIN 100 MG/5 ML, 10ML UDC PO SCH ×4 (02:51→20:14)
[2020-03-16] MEDS: INSULIN LISPRO 100 UNITS/ML, PEN SQ-INSULIN SCH ×4 (02:53→20:16)
[2020-03-16 04:08] VITALS: BP 86/54
[2020-03-16 04:35] LABS: BASOPHILS % (AUTO) 1 % (0-1); EOSINOPHILS % (AUTO) 3 % (1-7); LYMPHOCYTES % (AUTO) 10 % (22-44); MEAN CORPUSCULAR HEMOGLOBIN 28.3 pg (27.0-34.8); MEAN CORPUSCULAR HGB CONC 32.8 g/dL (32.4-35.8); MEAN PLATELET VOLUME 9.1 fL (7.4-10.4); MONOCYTES % (AUTO) 9 % (2-9); NEUTROPHILS % (AUTO) 77 % (42-75); PLATELET COUNT 201 x10^3/uL (130-400); RED BLOOD COUNT 3.62 x10^6/uL (3.82-5.3); RED CELL DISTRIBUTION WIDTH 13.9 % (9.6-15.2)
[2020-03-16] MEDS: FENTANYL PF 1,000 MCG in SODIUM CHLORIDE 0.9% 80 ML IV PRN ×2 (04:36→12:40)
[2020-03-16 04:37] LABS: ANION GAP 4 mmol/L (5-15); CALCIUM 9.3 mg/dL (8.5-10.1); CHLORIDE 102 mmol/L (98-107); CREATININE 0.53 mg/dL (0.55-1.02)
[2020-03-16 04:45] LABS: ANION GAP 5 mmol/L (5-15); CALCIUM 9.5 mg/dL (8.5-10.1); CHLORIDE 102 mmol/L (98-107); CREATININE 0.53 mg/dL (0.55-1.02)
[2020-03-16 04:46] LABS: BILIRUBIN,TOTAL 0.4 mg/dL (0.2-1.0); TRIGLYCERIDES 188 mg/dL (50-200)
[2020-03-16 04:55] LABS: MD NO
[2020-03-16] MEDS ORDERED: POTASSIUM CHLORIDE 10% 40 MEQ/30 ML UDC PO ONE (07:30)
[2020-03-16] MEDS: TAMSULOSIN 0.4 MG CAP.ER.24H PO SCH (08:19)
[2020-03-16] MEDS: HYDROCORTISONE 100 MG INJ. IVPush SCH ×3 (08:19→23:24)
[2020-03-16] MEDS: QUETIAPINE 25MG TABLET PO SCH ×3 (08:19→20:14)
[2020-03-16] MEDS: INSULIN GLARGINE 100 UNITS/ML, PEN SQ-INSULIN SCH ×2 (08:29→20:17)
[2020-03-16] MEDS: SODIUM CHLORIDE FLUSH 10ML SYR IVF SCH ×2 (08:34→20:15)
[2020-03-16] MEDS ORDERED: FUROSEMIDE 40 MG/4 ML IV SCH (09:00)
[2020-03-16] MEDS: FENTANYL PF 2,500 MCG in SODIUM CHLORIDE 0.9% 200 ML IV PRN ×2 (15:11→22:25)
[2020-03-16] MEDS: ENOXAPARIN 40 MG/0.4 ML SQ SCH (15:16)
[2020-03-16] MEDS: PROPOFOL 100 ML IV PRN (20:22)
[2020-03-17] MEDS: PROPOFOL 100 ML IV PRN ×2 (00:47→20:42)
[2020-03-17] MEDS: GUAIFENESIN 100 MG/5 ML, 10ML UDC PO SCH ×4 (03:09→20:04)
[2020-03-17] MEDS: INSULIN LISPRO 100 UNITS/ML, PEN SQ-INSULIN SCH ×4 (03:10→20:05)
[2020-03-17 03:50] LABS: ALANINE AMINOTRANSFERASE 92 U/L (12-78); ANION GAP 2 mmol/L (5-15); CALCIUM 9.6 mg/dL (8.5-10.1); CHLORIDE 102 mmol/L (98-107); CREATININE 0.59 mg/dL (0.55-1.02)
[2020-03-17 03:52] LABS: ALKALINE PHOSPHATASE 73 U/L (45-117); BILIRUBIN,TOTAL 0.3 mg/dL (0.2-1.0); TOTAL PROTEIN 6.2 g/dL (6.4-8.2)
[2020-03-17 04:01] LABS: BASOPHILS % (AUTO) 0 % (0-1); EOSINOPHILS % (AUTO) 1 % (1-7); LYMPHOCYTES % (AUTO) 8 % (22-44); MEAN CORPUSCULAR HEMOGLOBIN 28.5 pg (27.0-34.8); MEAN CORPUSCULAR HGB CONC 32.9 g/dL (32.4-35.8); MEAN PLATELET VOLUME 9.3 fL (7.4-10.4); MONOCYTES % (AUTO) 6 % (2-9); NEUTROPHILS % (AUTO) 86 % (42-75); PLATELET COUNT 185 x10^3/uL (130-400); RED BLOOD COUNT 3.54 x10^6/uL (3.82-5.3); RED CELL DISTRIBUTION WIDTH 13.7 % (9.6-15.2)
[2020-03-17 04:17] LABS: MD NO
[2020-03-17 06:15] VITALS: BP 93/52
[2020-03-17] MEDS ORDERED: AcetaZOLAMIDE INJ 500 MG IVPush SCH (07:00)
[2020-03-17] MEDS: HYDROCORTISONE 100 MG INJ. IVPush SCH ×3 (08:03→23:31)
[2020-03-17] MEDS: QUETIAPINE 25MG TABLET PO SCH ×3 (08:04→20:04)
[2020-03-17] MEDS: TAMSULOSIN 0.4 MG CAP.ER.24H PO SCH (08:04)
[2020-03-17] MEDS: INSULIN GLARGINE 100 UNITS/ML, PEN SQ-INSULIN SCH ×2 (08:06→20:08)
[2020-03-17] MEDS: SODIUM CHLORIDE FLUSH 10ML SYR IVF SCH ×2 (08:08→20:04)
[2020-03-17 11:11] LABS: ANION GAP 6 mmol/L (5-15); CHLORIDE 103 mmol/L (98-107); CREATININE 0.73 mg/dL (0.55-1.02)
[2020-03-17] MEDS: LEVOFLOXACIN/PMX 750MG/150ML 150 ML IV SCH (11:29)
[2020-03-17] MEDS: FENTANYL PF 2,500 MCG in SODIUM CHLORIDE 0.9% 200 ML IV PRN (15:05)
[2020-03-17] MEDS: ENOXAPARIN 40 MG/0.4 ML SQ SCH (15:20)
[2020-03-17] MEDS: BISACODYL 10 MG SUPP PR PRN (22:11)
[2020-03-18] MEDS: PROPOFOL 100 ML IV PRN ×3 (02:44→23:10)
[2020-03-18] MEDS: GUAIFENESIN 100 MG/5 ML, 10ML UDC PO SCH ×4 (03:15→23:58)
[2020-03-18] MEDS: INSULIN LISPRO 100 UNITS/ML, PEN SQ-INSULIN SCH ×4 (04:05→20:58)
[2020-03-18 04:16] LABS: BASOPHILS % (AUTO) 1 % (0-1); EOSINOPHILS % (AUTO) 0 % (1-7); LYMPHOCYTES % (AUTO) 8 % (22-44); MEAN CORPUSCULAR HEMOGLOBIN 28.9 pg (27.0-34.8); MEAN CORPUSCULAR HGB CONC 33.4 g/dL (32.4-35.8); MEAN PLATELET VOLUME 8.6 fL (7.4-10.4); MONOCYTES % (AUTO) 8 % (2-9); NEUTROPHILS % (AUTO) 83 % (42-75); PLATELET COUNT 209 x10^3/uL (130-400); RED BLOOD COUNT 3.51 x10^6/uL (3.82-5.3); RED CELL DISTRIBUTION WIDTH 13.9 % (9.6-15.2)
[2020-03-18 04:18] LABS: MD NO
[2020-03-18 04:29] LABS: ANION GAP 4 mmol/L (5-15); CALCIUM 9.5 mg/dL (8.5-10.1); CHLORIDE 103 mmol/L (98-107)
[2020-03-18 04:32] LABS: ALANINE AMINOTRANSFERASE 102 U/L (12-78); ALKALINE PHOSPHATASE 78 U/L (45-117); BILIRUBIN,TOTAL 0.3 mg/dL (0.2-1.0); CREATININE 0.63 mg/dL (0.55-1.02)
[2020-03-18] MEDS ORDERED: DEXMEDETOMIDINE 200 MCG in SODIUM CHLORIDE 0.9% 48 ML IV PRN (09:00)
[2020-03-18] MEDS: HYDROCORTISONE 100 MG INJ. IVPush SCH ×3 (09:06→23:58)
[2020-03-18] MEDS: FENTANYL PF 2,500 MCG in SODIUM CHLORIDE 0.9% 200 ML IV PRN ×2 (09:07→19:38)
[2020-03-18] MEDS: SODIUM CHLORIDE FLUSH 10ML SYR IVF SCH ×2 (09:07→20:56)
[2020-03-18] MEDS: QUETIAPINE 25MG TABLET PO SCH ×3 (09:08→20:56)
[2020-03-18] MEDS: TAMSULOSIN 0.4 MG CAP.ER.24H PO SCH (09:08)
[2020-03-18] MEDS: INSULIN GLARGINE 100 UNITS/ML, PEN SQ-INSULIN SCH ×2 (09:47→20:57)
[2020-03-18] MEDS: ENOXAPARIN 40 MG/0.4 ML SQ SCH (15:37)
[2020-03-19] MEDS: INSULIN LISPRO 100 UNITS/ML, PEN SQ-INSULIN SCH ×4 (03:22→21:16)
[2020-03-19 04:59] LABS: BASOPHILS % (AUTO) 1 % (0-1); EOSINOPHILS % (AUTO) 2 % (1-7); LYMPHOCYTES % (AUTO) 11 % (22-44); MEAN CORPUSCULAR HEMOGLOBIN 28.5 pg (27.0-34.8); MEAN CORPUSCULAR HGB CONC 32.9 g/dL (32.4-35.8); MEAN PLATELET VOLUME 8.6 fL (7.4-10.4); MONOCYTES % (AUTO) 6 % (2-9); NEUTROPHILS % (AUTO) 80 % (42-75); PLATELET COUNT 231 x10^3/uL (130-400); RED BLOOD COUNT 3.46 x10^6/uL (3.82-5.3); RED CELL DISTRIBUTION WIDTH 14.1 % (9.6-15.2)
[2020-03-19 05:03] LABS: MD NO
[2020-03-19 05:04] LABS: ALANINE AMINOTRANSFERASE 97 U/L (12-78); ALBUMIN 2.1 g/dL (3.4-5.0); ANION GAP 4 mmol/L (5-15); CALCIUM 9.2 mg/dL (8.5-10.1); CHLORIDE 106 mmol/L (98-107); CREATININE 0.58 mg/dL (0.55-1.02); TRIGLYCERIDES 258 mg/dL (50-200)
[2020-03-19 05:06] LABS: ALKALINE PHOSPHATASE 69 U/L (45-117); BILIRUBIN,TOTAL 0.2 mg/dL (0.2-1.0); TOTAL PROTEIN 6.1 g/dL (6.4-8.2)
[2020-03-19] MEDS: GUAIFENESIN 100 MG/5 ML, 10ML UDC PO SCH ×3 (05:55→18:33)
[2020-03-19] MEDS: FENTANYL PF 2,500 MCG in SODIUM CHLORIDE 0.9% 200 ML IV PRN ×2 (05:55→17:17)
[2020-03-19] MEDS: PROPOFOL 100 ML IV PRN ×3 (05:56→20:25)
[2020-03-19] MEDS: POTASSIUM CHLORIDE 10% 40 MEQ/30 ML UDC PO SCH ×2 (07:34→19:23)
[2020-03-19] MEDS: TAMSULOSIN 0.4 MG CAP.ER.24H PO SCH (07:34)
[2020-03-19] MEDS: QUETIAPINE 25MG TABLET PO SCH (07:34)
[2020-03-19] MEDS: HYDROCORTISONE 100 MG INJ. IVPush SCH ×2 (07:35→18:33)
[2020-03-19] MEDS: INSULIN GLARGINE 100 UNITS/ML, PEN SQ-INSULIN SCH ×2 (07:36→18:33)
[2020-03-19] MEDS: SODIUM CHLORIDE FLUSH 10ML SYR IVF SCH ×2 (07:37→19:24)
[2020-03-19] MEDS: LEVOFLOXACIN/PMX 750MG/150ML 150 ML IV SCH (12:33)
[2020-03-19] MEDS ORDERED: CATHFLO-ALTEPLASE 2 MG/2 ML CATHFLUSH ONE (13:30)
[2020-03-19] MEDS: ENOXAPARIN 40 MG/0.4 ML SQ SCH (15:08)
[2020-03-19] MEDS: SENNA/DOCUSATE TABLET NG PRN (19:23)
[2020-03-20] MEDS: GUAIFENESIN 100 MG/5 ML, 10ML UDC PO SCH ×4 (00:32→17:11)
[2020-03-20] MEDS: PROPOFOL 100 ML IV PRN ×4 (02:36→23:36)
[2020-03-20] MEDS: INSULIN LISPRO 100 UNITS/ML, PEN SQ-INSULIN SCH ×4 (02:50→21:24)
[2020-03-20 04:17] LABS: BASOPHILS % (AUTO) 0 % (0-1); EOSINOPHILS % (AUTO) 2 % (1-7); LYMPHOCYTES % (AUTO) 12 % (22-44); MD NO; MEAN CORPUSCULAR HEMOGLOBIN 28.5 pg (27.0-34.8); MEAN CORPUSCULAR HGB CONC 32.2 g/dL (32.4-35.8); MEAN PLATELET VOLUME 8.5 fL (7.4-10.4); MONOCYTES % (AUTO) 9 % (2-9); NEUTROPHILS % (AUTO) 77 % (42-75); PLATELET COUNT 283 x10^3/uL (130-400); RED BLOOD COUNT 4.02 x10^6/uL (3.82-5.3); RED CELL DISTRIBUTION WIDTH 14.6 % (9.6-15.2)
[2020-03-20 04:25] LABS: ALBUMIN 2.6 g/dL (3.4-5.0); ANION GAP 6 mmol/L (5-15); CALCIUM 9.7 mg/dL (8.5-10.1); CHLORIDE 110 mmol/L (98-107)
[2020-03-20 04:29] LABS: ALANINE AMINOTRANSFERASE 113 U/L (12-78); ALKALINE PHOSPHATASE 83 U/L (45-117); BILIRUBIN,TOTAL 0.3 mg/dL (0.2-1.0); CREATININE 0.64 mg/dL (0.55-1.02); TOTAL PROTEIN 7.4 g/dL (6.4-8.2)
[2020-03-20] MEDS: HYDROCORTISONE 100 MG INJ. IVPush SCH ×2 (05:58→21:23)
[2020-03-20] MEDS ORDERED: POTASSIUM CHLORIDE 10% 20 MEQ/15 ML UDC PO ONE (07:00)
[2020-03-20] MEDS: TAMSULOSIN 0.4 MG CAP.ER.24H PO SCH (07:41)
[2020-03-20] MEDS: SODIUM CHLORIDE FLUSH 10ML SYR IVF SCH ×2 (07:42→21:00)
[2020-03-20] MEDS: INSULIN GLARGINE 100 UNITS/ML, PEN SQ-INSULIN SCH ×2 (07:42→21:26)
[2020-03-20] MEDS: DILTIAZEM 5 MG/ML, 5ML IVPush PRN (08:54)
[2020-03-20] MEDS ORDERED: FUROSEMIDE 40 MG/4 ML IV ONE (09:30)
[2020-03-20] MEDS: ENOXAPARIN 40 MG/0.4 ML SQ SCH ×2 (10:13→21:24)
[2020-03-20] MEDS: NOREPINEPHRINE 8 MG in SODIUM CHLORIDE 0.9% 242 ML IV PRN (10:28)
[2020-03-20] MEDS: SCOPOLAMINE 1MG PATCH TD SCH (11:46)
[2020-03-20] MEDS: DILTIAZEM 125 MG in SODIUM CHLORIDE 0.9% 100 ML IV PRN ×2 (12:00→23:37)
[2020-03-20] MEDS: POTASSIUM CHLORIDE 20 MEQ TAB.ER.PRT PO SCH (17:11)
[2020-03-21] MEDS: GUAIFENESIN 100 MG/5 ML, 10ML UDC PO SCH ×5 (00:08→23:49)
[2020-03-21] MEDS: FENTANYL PF 2,500 MCG in SODIUM CHLORIDE 0.9% 200 ML IV PRN ×2 (02:19→21:44)
[2020-03-21] MEDS: INSULIN LISPRO 100 UNITS/ML, PEN SQ-INSULIN SCH ×4 (03:26→20:44)
[2020-03-21] MEDS: PROPOFOL 100 ML IV PRN ×4 (04:03→22:45)
[2020-03-21 04:06] LABS: BASOPHILS % (AUTO) 1 % (0-1); EOSINOPHILS % (AUTO) 4 % (1-7); LYMPHOCYTES % (AUTO) 12 % (22-44); MEAN CORPUSCULAR HEMOGLOBIN 28.3 pg (27.0-34.8); MEAN CORPUSCULAR HGB CONC 32.6 g/dL (32.4-35.8); MEAN PLATELET VOLUME 8.6 fL (7.4-10.4); MONOCYTES % (AUTO) 6 % (2-9); NEUTROPHILS % (AUTO) 78 % (42-75); PLATELET COUNT 301 x10^3/uL (130-400); RED BLOOD COUNT 4.02 x10^6/uL (3.82-5.3); RED CELL DISTRIBUTION WIDTH 14.6 % (9.6-15.2)
[2020-03-21 04:10] LABS: MD NO
[2020-03-21 04:14] LABS: ALBUMIN 2.4 g/dL (3.4-5.0); ANION GAP 5 mmol/L (5-15); CALCIUM 9.5 mg/dL (8.5-10.1); CHLORIDE 108 mmol/L (98-107)
[2020-03-21 04:17] LABS: ALANINE AMINOTRANSFERASE 92 U/L (12-78); ALKALINE PHOSPHATASE 76 U/L (45-117); BILIRUBIN,TOTAL 0.5 mg/dL (0.2-1.0); CREATININE 0.67 mg/dL (0.55-1.02)
[2020-03-21] MEDS ORDERED: POTASSIUM CHLORIDE 10% 20 MEQ/15 ML UDC PO ONE (07:00)
[2020-03-21] MEDS ORDERED: FUROSEMIDE 40 MG/4 ML IV ONE (07:00)
[2020-03-21] MEDS: INSULIN GLARGINE 100 UNITS/ML, PEN SQ-INSULIN SCH ×2 (07:27→20:43)
[2020-03-21] MEDS: TAMSULOSIN 0.4 MG CAP.ER.24H PO SCH (07:28)
[2020-03-21] MEDS: HYDROCORTISONE 100 MG INJ. IVPush SCH ×2 (07:28→20:45)
[2020-03-21] MEDS: POTASSIUM CHLORIDE 20 MEQ TAB.ER.PRT PO SCH ×2 (07:28→17:00)
[2020-03-21] MEDS: SODIUM CHLORIDE FLUSH 10ML SYR IVF SCH ×2 (07:29→20:45)
[2020-03-21] MEDS: ENOXAPARIN 40 MG/0.4 ML SQ SCH ×2 (09:35→22:15)
[2020-03-21] MEDS: FLUDROCORTISONE 0.1 MG TABLET PO SCH ×2 (09:35→21:29)
[2020-03-21] MEDS: DILTIAZEM 125 MG in SODIUM CHLORIDE 0.9% 100 ML IV PRN (10:56)
[2020-03-21] MEDS: LEVOFLOXACIN/PMX 750MG/150ML 150 ML IV SCH (12:06)
[2020-03-21] MEDS ORDERED: FENTANYL PF 100 MCG/2ML ONE (12:58)
[2020-03-21] MEDS ORDERED: VECURONIUM 10 MG ONE (12:58)
[2020-03-21] MEDS ORDERED: MIDAZOLAM 1 MG/ML, 5ML ONE (14:03)
[2020-03-21] MEDS ORDERED: VECURONIUM 10 MG IVPush ONE (14:30)
[2020-03-21] MEDS ORDERED: ICN FENTANYL 4MCG/ML IV IVPush ONE (14:30)
[2020-03-21] MEDS ORDERED: MIDAZOLAM 1 MG/ML, 5ML IVPush PRN (15:00)
[2020-03-21] MEDS ORDERED: FENTANYL PF 100 MCG/2ML IV ONE (15:00)
[2020-03-22 02:49] LABS: MICROSCOPIC INDICATED
[2020-03-22] MEDS: INSULIN LISPRO 100 UNITS/ML, PEN SQ-INSULIN SCH ×4 (03:12→19:53)
[2020-03-22] MEDS: PROPOFOL 100 ML IV PRN (03:37)
[2020-03-22 03:43] LABS: BASOPHILS % (AUTO) 1 % (0-1); EOSINOPHILS % (AUTO) 2 % (1-7); LYMPHOCYTES % (AUTO) 7 % (22-44); MEAN CORPUSCULAR HEMOGLOBIN 28.7 pg (27.0-34.8); MEAN PLATELET VOLUME 8.5 fL (7.4-10.4); MONOCYTES % (AUTO) 5 % (2-9); NEUTROPHILS % (AUTO) 86 % (42-75); PLATELET COUNT 277 x10^3/uL (130-400); RED BLOOD COUNT 3.98 x10^6/uL (3.82-5.3); RED CELL DISTRIBUTION WIDTH 14.8 % (9.6-15.2)
[2020-03-22 03:47] LABS: MD SCAN
[2020-03-22 03:48] LABS: ANION GAP 7 mmol/L (5-15); CHLORIDE 108 mmol/L (98-107)
[2020-03-22 03:50] LABS: BILIRUBIN,TOTAL 0.4 mg/dL (0.2-1.0); CREATININE 0.58 mg/dL (0.55-1.02); TRIGLYCERIDES 362 mg/dL (50-200)
[2020-03-22] MEDS: GUAIFENESIN 100 MG/5 ML, 10ML UDC PO SCH ×3 (06:03→17:42)
[2020-03-22] MEDS ORDERED: POTASSIUM CHLORIDE 10% 20 MEQ/15 ML UDC PO ONE (07:00)
[2020-03-22] MEDS: INSULIN GLARGINE 100 UNITS/ML, PEN SQ-INSULIN SCH ×2 (08:23→19:52)
[2020-03-22] MEDS: SODIUM CHLORIDE FLUSH 10ML SYR IVF SCH ×2 (09:00→20:28)
[2020-03-22] MEDS ORDERED: FUROSEMIDE 40 MG/4 ML IV ONE (09:00)
[2020-03-22] MEDS: POTASSIUM CHLORIDE 20 MEQ TAB.ER.PRT PO SCH ×2 (10:15→17:43)
[2020-03-22] MEDS: FLUDROCORTISONE 0.1 MG TABLET PO SCH ×2 (10:15→21:28)
[2020-03-22] MEDS: HYDROCORTISONE 100 MG INJ. IVPush SCH ×2 (10:15→21:28)
[2020-03-22] MEDS: TAMSULOSIN 0.4 MG CAP.ER.24H PO SCH (10:15)
[2020-03-22] MEDS: FLUCONAZOLE 40 MG/ML ORAL SUSP PO SCH (10:15)
[2020-03-22] MEDS: MIDAZOLAM HCL 50 MG in SODIUM CHLORIDE 0.9% 40 ML IV PRN ×2 (10:21→17:43)
[2020-03-22] MEDS: ENOXAPARIN 40 MG/0.4 ML SQ SCH ×2 (10:22→21:28)
[2020-03-22] MEDS: FENTANYL PF 2,500 MCG in SODIUM CHLORIDE 0.9% 200 ML IV PRN (12:16)
[2020-03-23] MEDS: GUAIFENESIN 100 MG/5 ML, 10ML UDC PO SCH ×5 (00:13→23:06)
[2020-03-23] MEDS: INSULIN LISPRO 100 UNITS/ML, PEN SQ-INSULIN SCH ×4 (03:15→20:17)
[2020-03-23 03:33] LABS: BASOPHILS % (AUTO) 0 % (0-1); EOSINOPHILS % (AUTO) 2 % (1-7); LYMPHOCYTES % (AUTO) 8 % (22-44); MEAN CORPUSCULAR HEMOGLOBIN 29.1 pg (27.0-34.8); MEAN CORPUSCULAR HGB CONC 33.3 g/dL (32.4-35.8); MEAN PLATELET VOLUME 8.4 fL (7.4-10.4); MONOCYTES % (AUTO) 6 % (2-9); NEUTROPHILS % (AUTO) 83 % (42-75); PLATELET COUNT 209 x10^3/uL (130-400); RED BLOOD COUNT 3.44 x10^6/uL (3.82-5.3); RED CELL DISTRIBUTION WIDTH 14.9 % (9.6-15.2)
[2020-03-23 03:36] LABS: ANION GAP 4 mmol/L (5-15); CALCIUM 8.7 mg/dL (8.5-10.1); CHLORIDE 108 mmol/L (98-107); CREATININE 0.51 mg/dL (0.55-1.02)
[2020-03-23 03:37] LABS: BILIRUBIN,TOTAL 0.5 mg/dL (0.2-1.0)
[2020-03-23 03:57] LABS: MD NO
[2020-03-23] MEDS: FLUCONAZOLE 40 MG/ML ORAL SUSP PO SCH (09:00)
[2020-03-23] MEDS ORDERED: FLUCONAZOLE 200 MG TABLET ONE (10:17)
[2020-03-23] MEDS: POTASSIUM CHLORIDE 20 MEQ TAB.ER.PRT PO SCH ×2 (10:22→17:54)
[2020-03-23] MEDS: HYDROCORTISONE 100 MG INJ. IVPush SCH ×2 (10:22→20:18)
[2020-03-23] MEDS: FUROSEMIDE 40 MG/4 ML IV SCH (10:22)
[2020-03-23] MEDS: ENOXAPARIN 40 MG/0.4 ML SQ SCH ×2 (10:23→23:06)
[2020-03-23] MEDS: MIDAZOLAM HCL 50 MG in SODIUM CHLORIDE 0.9% 40 ML IV PRN ×2 (10:23→23:07)
[2020-03-23] MEDS: SODIUM CHLORIDE FLUSH 10ML SYR IVF SCH ×2 (10:40→20:18)
[2020-03-23] MEDS ORDERED: LORazepam 2 MG/ML, 1ML ONE (10:52)
[2020-03-23] MEDS ORDERED: FENTANYL PF 100 MCG/2ML ONE (10:55)
[2020-03-23] MEDS ORDERED: FENTANYL PF 100 MCG/2ML IVPush ONE (11:00)
[2020-03-23] MEDS: INSULIN GLARGINE 100 UNITS/ML, PEN SQ-INSULIN SCH ×2 (11:07→23:08)
[2020-03-23] MEDS: FLUDROCORTISONE 0.1 MG TABLET PO SCH ×2 (11:53→20:18)
[2020-03-23] MEDS: TAMSULOSIN 0.4 MG CAP.ER.24H PO SCH (11:53)
[2020-03-23] MEDS: SCOPOLAMINE 1MG PATCH TD SCH (11:53)
[2020-03-23] MEDS: FENTANYL PF 2,500 MCG in SODIUM CHLORIDE 0.9% 200 ML IV PRN (13:52)
[2020-03-24] MEDS: INSULIN LISPRO 100 UNITS/ML, PEN SQ-INSULIN SCH ×4 (03:42→20:30)
[2020-03-24 04:04] LABS: BASOPHILS % (AUTO) 1 % (0-1); EOSINOPHILS % (AUTO) 3 % (1-7); LYMPHOCYTES % (AUTO) 13 % (22-44); MD NO; MEAN CORPUSCULAR HEMOGLOBIN 29.1 pg (27.0-34.8); MEAN CORPUSCULAR HGB CONC 33.3 g/dL (32.4-35.8); MEAN PLATELET VOLUME 8.6 fL (7.4-10.4); MONOCYTES % (AUTO) 6 % (2-9); NEUTROPHILS % (AUTO) 78 % (42-75); PLATELET COUNT 216 x10^3/uL (130-400); RED BLOOD COUNT 3.31 x10^6/uL (3.82-5.3); RED CELL DISTRIBUTION WIDTH 14.9 % (9.6-15.2)
[2020-03-24 04:06] LABS: ANION GAP 4 mmol/L (5-15); CHLORIDE 107 mmol/L (98-107); CREATININE 0.57 mg/dL (0.55-1.02)
[2020-03-24 04:07] LABS: BILIRUBIN,TOTAL 0.3 mg/dL (0.2-1.0)
[2020-03-24] MEDS: GUAIFENESIN 100 MG/5 ML, 10ML UDC PO SCH ×4 (05:34→23:32)
[2020-03-24] MEDS: SENNA/DOCUSATE TABLET NG PRN (05:35)
[2020-03-24] MEDS: FENTANYL PF 2,500 MCG in SODIUM CHLORIDE 0.9% 200 ML IV PRN ×2 (07:51→23:30)
[2020-03-24] MEDS: FLUDROCORTISONE 0.1 MG TABLET PO SCH ×2 (08:06→20:22)
[2020-03-24] MEDS: HYDROCORTISONE 100 MG INJ. IVPush SCH ×2 (08:06→20:22)
[2020-03-24] MEDS: FUROSEMIDE 40 MG/4 ML IV SCH (08:06)
[2020-03-24] MEDS: POTASSIUM CHLORIDE 20 MEQ TAB.ER.PRT PO SCH ×2 (08:06→17:54)
[2020-03-24] MEDS: TAMSULOSIN 0.4 MG CAP.ER.24H PO SCH (08:07)
[2020-03-24] MEDS: FLUCONAZOLE 40 MG/ML ORAL SUSP PO SCH (08:07)
[2020-03-24] MEDS: SODIUM CHLORIDE FLUSH 10ML SYR IVF SCH ×2 (08:07→20:22)
[2020-03-24] MEDS: ENOXAPARIN 40 MG/0.4 ML SQ SCH ×2 (11:38→22:30)
[2020-03-24] MEDS: INSULIN GLARGINE 100 UNITS/ML, PEN SQ-INSULIN SCH ×2 (11:38→23:00)
[2020-03-25] MEDS: INSULIN LISPRO 100 UNITS/ML, PEN SQ-INSULIN SCH ×4 (03:00→19:51)
[2020-03-25 04:12] LABS: CALCIUM 8.9 mg/dL (8.5-10.1); CREATININE 0.49 mg/dL (0.55-1.02); TRIGLYCERIDES 184 mg/dL (50-200)
[2020-03-25 04:13] LABS: BASOPHILS % (AUTO) 1 % (0-1); BILIRUBIN,TOTAL 0.2 mg/dL (0.2-1.0); EOSINOPHILS % (AUTO) 7 % (1-7); LYMPHOCYTES % (AUTO) 15 % (22-44); MEAN CORPUSCULAR HEMOGLOBIN 29.1 pg (27.0-34.8); MEAN CORPUSCULAR HGB CONC 33.1 g/dL (32.4-35.8); MEAN PLATELET VOLUME 8.6 fL (7.4-10.4); MONOCYTES % (AUTO) 8 % (2-9); NEUTROPHILS % (AUTO) 70 % (42-75); PLATELET COUNT 228 x10^3/uL (130-400); RED BLOOD COUNT 3.28 x10^6/uL (3.82-5.3); RED CELL DISTRIBUTION WIDTH 14.9 % (9.6-15.2)
[2020-03-25 04:29] LABS: CHLORIDE 108 mmol/L (98-107)
[2020-03-25 04:34] LABS: ANION GAP 3 mmol/L (5-15)
[2020-03-25] MEDS: MIDAZOLAM HCL 50 MG in SODIUM CHLORIDE 0.9% 40 ML IV PRN ×2 (04:57→22:52)
[2020-03-25] MEDS: GUAIFENESIN 100 MG/5 ML, 10ML UDC PO SCH ×3 (04:57→17:37)
[2020-03-25] MEDS: BISACODYL 10 MG SUPP PR PRN (05:21)
[2020-03-25 06:00] LABS: MD SCAN
[2020-03-25] MEDS: POTASSIUM CHLORIDE 20 MEQ TAB.ER.PRT PO SCH (09:19)
[2020-03-25] MEDS: FLUCONAZOLE 40 MG/ML ORAL SUSP PO SCH (09:20)
[2020-03-25] MEDS: FLUDROCORTISONE 0.1 MG TABLET PO SCH ×2 (09:20→19:51)
[2020-03-25] MEDS: TAMSULOSIN 0.4 MG CAP.ER.24H PO SCH (09:20)
[2020-03-25] MEDS: FUROSEMIDE 40 MG/4 ML IV SCH (09:20)
[2020-03-25] MEDS: SODIUM CHLORIDE FLUSH 10ML SYR IVF SCH ×2 (09:21→19:51)
[2020-03-25] MEDS ORDERED: POTASSIUM CHLORIDE 20 MEQ PACKET PO ONE (10:30)
[2020-03-25] MEDS: ENOXAPARIN 40 MG/0.4 ML SQ SCH ×2 (11:17→22:18)
[2020-03-25] MEDS: FENTANYL PF 2,500 MCG in SODIUM CHLORIDE 0.9% 200 ML IV PRN (13:55)
[2020-03-25] MEDS: INSULIN GLARGINE 100 UNITS/ML, PEN SQ-INSULIN SCH (18:49)
[2020-03-25] MEDS: POTASSIUM CHLORIDE 20 MEQ PACKET PO SCH (19:53)
[2020-03-26] MEDS: GUAIFENESIN 100 MG/5 ML, 10ML UDC PO SCH ×4 (00:07→18:08)
[2020-03-26] MEDS: FENTANYL PF 2,500 MCG in SODIUM CHLORIDE 0.9% 200 ML IV PRN ×3 (02:34→21:52)
[2020-03-26] MEDS: INSULIN LISPRO 100 UNITS/ML, PEN SQ-INSULIN SCH ×4 (03:08→21:49)
[2020-03-26 03:34] LABS: ANION GAP 1 mmol/L (5-15); BILIRUBIN,TOTAL 0.3 mg/dL (0.2-1.0); CHLORIDE 105 mmol/L (98-107)
[2020-03-26 03:37] LABS: BASOPHILS % (AUTO) 0 % (0-1); EOSINOPHILS % (AUTO) 8 % (1-7); LYMPHOCYTES % (AUTO) 12 % (22-44); MEAN CORPUSCULAR HEMOGLOBIN 29.1 pg (27.0-34.8); MEAN CORPUSCULAR HGB CONC 33.3 g/dL (32.4-35.8); MEAN PLATELET VOLUME 8.6 fL (7.4-10.4); MONOCYTES % (AUTO) 8 % (2-9); NEUTROPHILS % (AUTO) 72 % (42-75); PLATELET COUNT 264 x10^3/uL (130-400); RED BLOOD COUNT 3.55 x10^6/uL (3.82-5.3); RED CELL DISTRIBUTION WIDTH 15.2 % (9.6-15.2)
[2020-03-26 03:40] LABS: MD NO
[2020-03-26] MEDS: INSULIN GLARGINE 100 UNITS/ML, PEN SQ-INSULIN SCH ×3 (06:14→18:17)
[2020-03-26] MEDS ORDERED: FLUCONAZOLE 200 MG TABLET ONE (08:52)
[2020-03-26] MEDS ORDERED: DEXMEDETOMIDINE 400 MCG in SODIUM CHLORIDE 0.9% 96 ML IV PRN (09:00)
[2020-03-26] MEDS ORDERED: HYDROCORTISONE 100 MG INJ. IVPush SCH (09:00)
[2020-03-26] MEDS: FUROSEMIDE 40 MG/4 ML IV SCH (09:41)
[2020-03-26] MEDS: FLUDROCORTISONE 0.1 MG TABLET PO SCH (09:42)
[2020-03-26] MEDS: POTASSIUM CHLORIDE 20 MEQ PACKET PO SCH ×2 (09:42→21:46)
[2020-03-26] MEDS: TAMSULOSIN 0.4 MG CAP.ER.24H PO SCH (09:43)
[2020-03-26] MEDS: FLUCONAZOLE 40 MG/ML ORAL SUSP PO SCH (09:43)
[2020-03-26] MEDS: ENOXAPARIN 40 MG/0.4 ML SQ SCH ×2 (09:46→21:50)
[2020-03-26] MEDS: SODIUM CHLORIDE FLUSH 10ML SYR IVF SCH ×2 (09:48→21:46)
[2020-03-26] MEDS: SCOPOLAMINE 1MG PATCH TD SCH (11:00)
[2020-03-26] MEDS: METOPROLOL TARTRATE 25 MG TAB PO SCH ×2 (11:47→18:09)
[2020-03-26] MEDS: MIDAZOLAM HCL 50 MG in SODIUM CHLORIDE 0.9% 40 ML IV PRN (11:58)
[2020-03-26] MEDS: DILTIAZEM 5 MG/ML, 5ML IVPush PRN (18:09)
[2020-03-26] MEDS: ACETAMINOPHEN 325 MG TABLET PO PRN (21:53)
[2020-03-27] MEDS: GUAIFENESIN 100 MG/5 ML, 10ML UDC PO SCH ×4 (00:08→17:52)
[2020-03-27] MEDS: INSULIN LISPRO 100 UNITS/ML, PEN SQ-INSULIN SCH ×4 (03:34→20:38)
[2020-03-27 03:48] LABS: BASOPHILS % (AUTO) 0 % (0-1); EOSINOPHILS % (AUTO) 7 % (1-7); LYMPHOCYTES % (AUTO) 11 % (22-44); MEAN CORPUSCULAR HEMOGLOBIN 28.9 pg (27.0-34.8); MEAN PLATELET VOLUME 8.3 fL (7.4-10.4); MONOCYTES % (AUTO) 7 % (2-9); NEUTROPHILS % (AUTO) 75 % (42-75); PLATELET COUNT 343 x10^3/uL (130-400); RED BLOOD COUNT 4.03 x10^6/uL (3.82-5.3); RED CELL DISTRIBUTION WIDTH 14.6 % (9.6-15.2)
[2020-03-27 03:51] LABS: MD NO
[2020-03-27 03:58] LABS: ANION GAP 3 mmol/L (5-15); CALCIUM 9.7 mg/dL (8.5-10.1); CHLORIDE 102 mmol/L (98-107)
[2020-03-27 04:00] LABS: BILIRUBIN,TOTAL 0.5 mg/dL (0.2-1.0)
[2020-03-27] MEDS: METOPROLOL TARTRATE 25 MG TAB PO SCH ×2 (05:37→17:50)
[2020-03-27] MEDS: FLUCONAZOLE 40 MG/ML ORAL SUSP PO SCH (09:00)
[2020-03-27] MEDS: INSULIN GLARGINE 100 UNITS/ML, PEN SQ-INSULIN SCH ×2 (10:10→20:37)
[2020-03-27] MEDS: ENOXAPARIN 40 MG/0.4 ML SQ SCH ×2 (10:10→22:46)
[2020-03-27] MEDS: POTASSIUM CHLORIDE 20 MEQ PACKET PO SCH ×2 (10:11→20:35)
[2020-03-27] MEDS: RISPERIDONE 1 MG TABLET PO SCH ×2 (10:12→20:36)
[2020-03-27] MEDS: TAMSULOSIN 0.4 MG CAP.ER.24H PO SCH (10:12)
[2020-03-27] MEDS: FLUDROCORTISONE 0.1 MG TABLET PO SCH (10:13)
[2020-03-27] MEDS: SODIUM CHLORIDE FLUSH 10ML SYR IVF SCH ×2 (10:14→20:39)
[2020-03-27] MEDS: FUROSEMIDE 40 MG/4 ML IV SCH (10:15)
[2020-03-27] MEDS: HYDROCORTISONE 100 MG INJ. IVPush SCH (10:15)
[2020-03-27] MEDS: FENTANYL 100 MCG PATCH TD SCH (11:43)
[2020-03-27] MEDS: DEXMEDETOMIDINE 400 MCG in SODIUM CHLORIDE 0.9% 96 ML IV PRN ×2 (11:44→23:22)
[2020-03-27] MEDS ORDERED: SODIUM CHLORIDE 0.9%, 500ML IVBOLUS ONE (18:00)
[2020-03-27] MEDS ORDERED: HYDROCORTISONE 250 MG/2 ML IVPush ONE (18:00)
[2020-03-27] MEDS ORDERED: HYDROCORTISONE 100 MG INJ. IVPush ONE (18:30)
[2020-03-28] MEDS: GUAIFENESIN 100 MG/5 ML, 10ML UDC PO SCH ×5 (00:33→23:42)
[2020-03-28] MEDS: INSULIN LISPRO 100 UNITS/ML, PEN SQ-INSULIN SCH ×4 (03:23→20:14)
[2020-03-28 05:16] LABS: BASOPHILS % (AUTO) 0 % (0-1); EOSINOPHILS % (AUTO) 6 % (1-7); LYMPHOCYTES % (AUTO) 10 % (22-44); MEAN CORPUSCULAR HEMOGLOBIN 29.2 pg (27.0-34.8); MEAN CORPUSCULAR HGB CONC 33.2 g/dL (32.4-35.8); MEAN PLATELET VOLUME 8.4 fL (7.4-10.4); MONOCYTES % (AUTO) 6 % (2-9); NEUTROPHILS % (AUTO) 78 % (42-75); PLATELET COUNT 286 x10^3/uL (130-400); RED BLOOD COUNT 3.58 x10^6/uL (3.82-5.3); RED CELL DISTRIBUTION WIDTH 15.8 % (9.6-15.2)
[2020-03-28 05:19] LABS: ANION GAP 2 mmol/L (5-15); CALCIUM 9.5 mg/dL (8.5-10.1); CHLORIDE 104 mmol/L (98-107); CREATININE 0.64 mg/dL (0.55-1.02)
[2020-03-28 05:20] LABS: BILIRUBIN,TOTAL 0.4 mg/dL (0.2-1.0)
[2020-03-28 05:38] LABS: MD NO
[2020-03-28] MEDS: METOPROLOL TARTRATE 25 MG TAB PO SCH ×2 (05:54→17:28)
[2020-03-28] MEDS: DEXMEDETOMIDINE 400 MCG in SODIUM CHLORIDE 0.9% 96 ML IV PRN ×2 (07:11→18:38)
[2020-03-28] MEDS: RISPERIDONE 1 MG TABLET PO SCH ×2 (09:06→20:02)
[2020-03-28] MEDS: TAMSULOSIN 0.4 MG CAP.ER.24H PO SCH (09:06)
[2020-03-28] MEDS: FLUDROCORTISONE 0.1 MG TABLET PO SCH ×2 (09:06→20:03)
[2020-03-28] MEDS: POTASSIUM CHLORIDE 20 MEQ PACKET PO SCH ×2 (09:06→20:03)
[2020-03-28] MEDS: ENOXAPARIN 40 MG/0.4 ML SQ SCH ×2 (09:09→21:53)
[2020-03-28] MEDS: INSULIN GLARGINE 100 UNITS/ML, PEN SQ-INSULIN SCH ×2 (09:15→20:14)
[2020-03-28] MEDS: HYDROCORTISONE 100 MG INJ. IVPush SCH (09:24)
[2020-03-28] MEDS: FUROSEMIDE 40 MG/4 ML IV SCH (09:27)
[2020-03-28] MEDS: FLUCONAZOLE 40 MG/ML ORAL SUSP PO SCH (09:28)
[2020-03-28] MEDS: SODIUM CHLORIDE FLUSH 10ML SYR IVF SCH ×2 (09:28→20:02)
[2020-03-28] MEDS ORDERED: HYDROCORTISONE 100 MG INJ. IVPush ONE (10:30)
[2020-03-29] MEDS: INSULIN LISPRO 100 UNITS/ML, PEN SQ-INSULIN SCH ×4 (03:42→22:52)
[2020-03-29 04:20] LABS: BASOPHILS % (AUTO) 1 % (0-1); EOSINOPHILS % (AUTO) 5 % (1-7); LYMPHOCYTES % (AUTO) 12 % (22-44); MEAN CORPUSCULAR HEMOGLOBIN 29.1 pg (27.0-34.8); MEAN CORPUSCULAR HGB CONC 33.1 g/dL (32.4-35.8); MEAN PLATELET VOLUME 8.4 fL (7.4-10.4); MONOCYTES % (AUTO) 6 % (2-9); NEUTROPHILS % (AUTO) 76 % (42-75); PLATELET COUNT 304 x10^3/uL (130-400); RED BLOOD COUNT 3.69 x10^6/uL (3.82-5.3); RED CELL DISTRIBUTION WIDTH 15.1 % (9.6-15.2)
[2020-03-29 04:21] LABS: MD NO
[2020-03-29 04:32] LABS: ANION GAP 3 mmol/L (5-15); CHLORIDE 104 mmol/L (98-107)
[2020-03-29 04:36] LABS: BILIRUBIN,TOTAL 0.3 mg/dL (0.2-1.0); CREATININE 0.61 mg/dL (0.55-1.02)
[2020-03-29] MEDS: GUAIFENESIN 100 MG/5 ML, 10ML UDC PO SCH ×4 (06:10→23:58)
[2020-03-29] MEDS: METOPROLOL TARTRATE 25 MG TAB PO SCH (06:11)
[2020-03-29] MEDS: LIDODERM 5% PATCH TD SCH (08:30)
[2020-03-29] MEDS: FUROSEMIDE 40 MG/4 ML IV SCH (09:24)
[2020-03-29] MEDS: FLUDROCORTISONE 0.1 MG TABLET PO SCH ×2 (09:25→19:55)
[2020-03-29] MEDS: HYDROCORTISONE 100 MG INJ. IVPush SCH (09:25)
[2020-03-29] MEDS: RISPERIDONE 1 MG TABLET PO SCH ×2 (09:25→19:55)
[2020-03-29] MEDS: POTASSIUM CHLORIDE 20 MEQ PACKET PO SCH ×2 (09:25→19:55)
[2020-03-29] MEDS: ENOXAPARIN 40 MG/0.4 ML SQ SCH ×2 (09:26→22:51)
[2020-03-29] MEDS: SODIUM CHLORIDE FLUSH 10ML SYR IVF SCH ×2 (09:29→19:56)
[2020-03-29] MEDS: FLUCONAZOLE 40 MG/ML ORAL SUSP PO SCH (09:31)
[2020-03-29] MEDS: TAMSULOSIN 0.4 MG CAP.ER.24H PO SCH (09:37)
[2020-03-29] MEDS: DEXMEDETOMIDINE 400 MCG in SODIUM CHLORIDE 0.9% 96 ML IV PRN (11:47)
[2020-03-29] MEDS: SCOPOLAMINE 1MG PATCH TD SCH (11:48)
[2020-03-29] MEDS: SULFAMETH/TRIMETHOPRIM 40-8MG/ML SUSP. PO/NG SCH ×3 (12:56→23:58)
[2020-03-29] MEDS: INSULIN GLARGINE 100 UNITS/ML, PEN SQ-INSULIN SCH ×2 (13:02→22:53)
[2020-03-29] MEDS: ACETAMINOPHEN 325 MG TABLET PO PRN (17:25)
[2020-03-29] MEDS ORDERED: LACTATED RINGERS 500 ML IVBOLUS ONE (18:30)
[2020-03-29] MEDS ORDERED: NOREPINEPHRINE 8 MG in SODIUM CHLORIDE 0.9% 242 ML IV PRN (18:30)
[2020-03-29] MEDS: LIDODERM REMOVE PATCH NOTE XX SCH (20:00)
[2020-03-30 05:22] LABS: BASOPHILS % (AUTO) 0 % (0-1); EOSINOPHILS % (AUTO) 5 % (1-7); LYMPHOCYTES % (AUTO) 9 % (22-44); MEAN CORPUSCULAR HEMOGLOBIN 28.8 pg (27.0-34.8); MEAN PLATELET VOLUME 8.8 fL (7.4-10.4); MONOCYTES % (AUTO) 4 % (2-9); NEUTROPHILS % (AUTO) 82 % (42-75); PLATELET COUNT 295 x10^3/uL (130-400); RED CELL DISTRIBUTION WIDTH 15.5 % (9.6-15.2)
[2020-03-30 05:25] LABS: ANION GAP 2 mmol/L (5-15); CALCIUM 9.3 mg/dL (8.5-10.1); CHLORIDE 104 mmol/L (98-107); CREATININE 1.05 mg/dL (0.55-1.02)
[2020-03-30 05:26] LABS: BILIRUBIN,TOTAL 0.3 mg/dL (0.2-1.0)
[2020-03-30 05:29] LABS: MD NO
[2020-03-30] MEDS: INSULIN LISPRO 100 UNITS/ML, PEN SQ-INSULIN SCH ×4 (05:32→22:32)
[2020-03-30] MEDS: GUAIFENESIN 100 MG/5 ML, 10ML UDC PO SCH ×4 (06:12→23:41)
[2020-03-30] MEDS: SULFAMETH/TRIMETHOPRIM 40-8MG/ML SUSP. PO/NG SCH ×4 (06:12→23:41)
[2020-03-30] MEDS: FLUCONAZOLE 40 MG/ML ORAL SUSP PO SCH (09:00)
[2020-03-30] MEDS: ENOXAPARIN 40 MG/0.4 ML SQ SCH ×2 (09:26→22:32)
[2020-03-30] MEDS: FLUDROCORTISONE 0.1 MG TABLET PO SCH ×2 (09:26→20:19)
[2020-03-30] MEDS: HYDROCORTISONE 100 MG INJ. IVPush SCH (09:26)
[2020-03-30] MEDS: RISPERIDONE 1 MG TABLET PO SCH ×2 (09:26→20:20)
[2020-03-30] MEDS: TAMSULOSIN 0.4 MG CAP.ER.24H PO SCH (09:26)
[2020-03-30] MEDS: SODIUM CHLORIDE FLUSH 10ML SYR IVF SCH ×2 (09:29→20:19)
[2020-03-30] MEDS: LIDODERM 5% PATCH TD SCH (09:36)
[2020-03-30] MEDS: FENTANYL 100 MCG PATCH TD SCH ×2 (10:23→11:40)
[2020-03-30] MEDS: FENTANYL REMOVE PATCH NOTE XX SCH (11:00)
[2020-03-30] MEDS: INSULIN GLARGINE 100 UNITS/ML, PEN SQ-INSULIN SCH ×2 (11:41→22:32)
[2020-03-30] MEDS: LIDOCAINE-MPF 1%, 2ML ENDO PRN ×2 (15:00→23:47)
[2020-03-30] MEDS: NYSTATIN 500,000 UNITS/5 ML UDC PO SCH ×2 (17:02→20:20)
[2020-03-30] MEDS: LIDODERM REMOVE PATCH NOTE XX SCH (20:18)
[2020-03-30] MEDS: POTASSIUM CHLORIDE 20 MEQ PACKET PO SCH (20:19)
[2020-03-30] MEDS: ONDANSETRON 2MG/ML, 2ML IV PRN (23:41)
[2020-03-30] MEDS: ACETAMINOPHEN 325 MG TABLET PO PRN (23:41)
[2020-03-31 04:28] LABS: BASOPHILS % (AUTO) 0 % (0-1); EOSINOPHILS % (AUTO) 4 % (1-7); LYMPHOCYTES % (AUTO) 12 % (22-44); MEAN CORPUSCULAR HEMOGLOBIN 29.4 pg (27.0-34.8); MEAN CORPUSCULAR HGB CONC 33.4 g/dL (32.4-35.8); MEAN PLATELET VOLUME 8.4 fL (7.4-10.4); MONOCYTES % (AUTO) 5 % (2-9); NEUTROPHILS % (AUTO) 79 % (42-75); PLATELET COUNT 260 x10^3/uL (130-400); RED CELL DISTRIBUTION WIDTH 15.2 % (9.6-15.2)
[2020-03-31 04:36] LABS: ANION GAP 6 mmol/L (5-15); BILIRUBIN,TOTAL 0.2 mg/dL (0.2-1.0); CALCIUM 9.3 mg/dL (8.5-10.1); CHLORIDE 104 mmol/L (98-107); CREATININE 0.83 mg/dL (0.55-1.02)
[2020-03-31 04:42] LABS: MD NO
[2020-03-31] MEDS: SULFAMETH/TRIMETHOPRIM 40-8MG/ML SUSP. PO/NG SCH ×4 (05:22→23:58)
[2020-03-31] MEDS: GUAIFENESIN 100 MG/5 ML, 10ML UDC PO SCH ×4 (05:22→23:57)
[2020-03-31] MEDS: INSULIN LISPRO 100 UNITS/ML, PEN SQ-INSULIN SCH ×4 (05:22→22:31)
[2020-03-31] MEDS: NYSTATIN 500,000 UNITS/5 ML UDC PO SCH ×4 (05:22→22:25)
[2020-03-31] MEDS: DEXMEDETOMIDINE 400 MCG in SODIUM CHLORIDE 0.9% 96 ML IV PRN (06:19)
[2020-03-31] MEDS ORDERED: AcetaZOLAMIDE INJ 500 MG IV SCH (09:00)
[2020-03-31] MEDS: TAMSULOSIN 0.4 MG CAP.ER.24H PO SCH (09:37)
[2020-03-31] MEDS: ENOXAPARIN 40 MG/0.4 ML SQ SCH ×2 (09:38→22:26)
[2020-03-31] MEDS: FLUDROCORTISONE 0.1 MG TABLET PO SCH ×2 (09:38→22:25)
[2020-03-31] MEDS: FLUCONAZOLE 40 MG/ML ORAL SUSP PO SCH (09:38)
[2020-03-31] MEDS: RISPERIDONE 1 MG TABLET PO SCH ×2 (09:38→22:25)
[2020-03-31] MEDS: HYDROCORTISONE 100 MG INJ. IVPush SCH (09:39)
[2020-03-31] MEDS: SODIUM CHLORIDE FLUSH 10ML SYR IVF SCH ×2 (09:53→22:25)
[2020-03-31] MEDS: INSULIN GLARGINE 100 UNITS/ML, PEN SQ-INSULIN SCH ×2 (09:54→22:41)
[2020-03-31] MEDS: LIDODERM REMOVE PATCH NOTE XX SCH (20:16)
[2020-03-31] MEDS: POTASSIUM CHLORIDE 20 MEQ PACKET PO SCH (22:24)
[2020-04-01 05:25] LABS: MEAN CORPUSCULAR HEMOGLOBIN 29.4 pg (27.0-34.8); MEAN CORPUSCULAR HGB CONC 32.7 g/dL (32.4-35.8); MEAN PLATELET VOLUME 8.6 fL (7.4-10.4); PLATELET COUNT 271 x10^3/uL (130-400); RED BLOOD COUNT 3.18 x10^6/uL (3.82-5.3); RED CELL DISTRIBUTION WIDTH 15.1 % (9.6-15.2)
[2020-04-01 05:35] LABS: ANION GAP 5 mmol/L (5-15); CALCIUM 9.1 mg/dL (8.5-10.1); CHLORIDE 110 mmol/L (98-107)
[2020-04-01 05:41] LABS: BILIRUBIN,TOTAL 0.3 mg/dL (0.2-1.0); CREATININE 0.93 mg/dL (0.55-1.02)
[2020-04-01 06:06] LABS: MD YES
[2020-04-01] MEDS: INSULIN LISPRO 100 UNITS/ML, PEN SQ-INSULIN SCH ×4 (06:06→23:12)
[2020-04-01 06:07] LABS: <PLATELET ESTIMATE> ADEQUATE; <PLT MORPHOLOGY> NORMAL PLT MORPH; <RBC MORPHOLOGY> NORMAL; EOS#(MANUAL) 0.42 x10^3/uL (0.0-0.4); EOS% (MANUAL) 4 % (1-7); LYMPH#(MANUAL) 2.21 x10^3/uL (1-3.4); LYMPHS% (MANUAL) 21 % (22-44); MONOS#(MANUAL) 0.21 x10^3/uL (0.3-2.7); MONOS% (MANUAL) 2 % (2-9); SEG#(MANUAL) 7.67 x10^3/uL (1.8-6.8); SEGS% (MANUAL) 73 % (42-75)
[2020-04-01] MEDS: GUAIFENESIN 100 MG/5 ML, 10ML UDC PO SCH ×3 (06:07→16:25)
[2020-04-01] MEDS: SULFAMETH/TRIMETHOPRIM 40-8MG/ML SUSP. PO/NG SCH ×3 (06:07→16:25)
[2020-04-01] MEDS: NYSTATIN 500,000 UNITS/5 ML UDC PO SCH ×4 (06:09→20:38)
[2020-04-01] MEDS: SODIUM CHLORIDE FLUSH 10ML SYR IVF SCH ×2 (08:13→20:38)
[2020-04-01] MEDS: HYDROCORTISONE 100 MG INJ. IVPush SCH (08:14)
[2020-04-01] MEDS: FLUDROCORTISONE 0.1 MG TABLET PO SCH ×2 (08:15→20:38)
[2020-04-01] MEDS: RISPERIDONE 1 MG TABLET PO SCH ×2 (08:15→20:39)
[2020-04-01] MEDS: TAMSULOSIN 0.4 MG CAP.ER.24H PO SCH (09:00)
[2020-04-01] MEDS: SCOPOLAMINE 1MG PATCH TD SCH (11:15)
[2020-04-01] MEDS: ENOXAPARIN 40 MG/0.4 ML SQ SCH ×2 (11:15→23:12)
[2020-04-01] MEDS ORDERED: AMIODARONE 150 MG in DEXTROSE 5% 100 ML IV ONE ×2 (11:30→14:00)
[2020-04-01] MEDS: INSULIN GLARGINE 100 UNITS/ML, PEN SQ-INSULIN SCH ×2 (11:41→23:13)
[2020-04-01] MEDS: FILTER 0.22 MICRON IV SCH (11:43)
[2020-04-01] MEDS: AMIODARONE 450 MG in DEXTROSE 5% 241 ML IV PRN ×2 (11:44→20:05)
[2020-04-01] MEDS: DEXMEDETOMIDINE 400 MCG in SODIUM CHLORIDE 0.9% 96 ML IV PRN (16:42)
[2020-04-01] MEDS ORDERED: DIGOXIN 0.25 MG/ML, 2ML IVPush ONE (19:00)
[2020-04-01] MEDS: LIDODERM REMOVE PATCH NOTE XX SCH (20:05)
[2020-04-01] MEDS: POTASSIUM CHLORIDE 20 MEQ PACKET PO SCH (20:38)
[2020-04-01] MEDS ORDERED: FENTANYL PF 100 MCG/2ML ONE (21:16)
[2020-04-01] MEDS ORDERED: PROPOFOL 100 ML IV PRN (21:30)
[2020-04-01] MEDS ORDERED: FENTANYL PF 100 MCG/2ML IV ONE (23:00)
[2020-04-02] MEDS: GUAIFENESIN 100 MG/5 ML, 10ML UDC PO SCH ×5 (00:12→23:36)
[2020-04-02] MEDS: SULFAMETH/TRIMETHOPRIM 40-8MG/ML SUSP. PO/NG SCH ×5 (00:13→23:37)
[2020-04-02 03:03] LABS: BASOPHILS % (AUTO) 0 % (0-1); EOSINOPHILS % (AUTO) 7 % (1-7); LYMPHOCYTES % (AUTO) 14 % (22-44); MEAN CORPUSCULAR HEMOGLOBIN 28.9 pg (27.0-34.8); MEAN CORPUSCULAR HGB CONC 32.4 g/dL (32.4-35.8); MEAN PLATELET VOLUME 8.6 fL (7.4-10.4); MONOCYTES % (AUTO) 6 % (2-9); NEUTROPHILS % (AUTO) 74 % (42-75); PLATELET COUNT 296 x10^3/uL (130-400); RED CELL DISTRIBUTION WIDTH 15.2 % (9.6-15.2)
[2020-04-02 03:07] LABS: MD NO
[2020-04-02 03:10] LABS: ANION GAP 9 mmol/L (5-15); CALCIUM 8.6 mg/dL (8.5-10.1); CHLORIDE 111 mmol/L (98-107); CREATININE 0.84 mg/dL (0.55-1.02)
[2020-04-02 03:11] LABS: BILIRUBIN,TOTAL 0.2 mg/dL (0.2-1.0)
[2020-04-02] MEDS: DEXMEDETOMIDINE 400 MCG in SODIUM CHLORIDE 0.9% 96 ML IV PRN ×3 (03:57→15:23)
[2020-04-02] MEDS: INSULIN LISPRO 100 UNITS/ML, PEN SQ-INSULIN SCH ×4 (05:10→23:36)
[2020-04-02] MEDS: NYSTATIN 500,000 UNITS/5 ML UDC PO SCH ×4 (05:11→20:27)
[2020-04-02] MEDS: FUROSEMIDE 40 MG/4 ML IV SCH (08:37)
[2020-04-02] MEDS: RISPERIDONE 1 MG TABLET PO SCH ×2 (08:43→20:27)
[2020-04-02] MEDS: FLUDROCORTISONE 0.1 MG TABLET PO SCH ×2 (08:43→20:27)
[2020-04-02] MEDS: HYDROCORTISONE 100 MG INJ. IVPush SCH (08:44)
[2020-04-02] MEDS: SODIUM CHLORIDE FLUSH 10ML SYR IVF SCH ×2 (08:51→20:28)
[2020-04-02] MEDS: FILTER 0.22 MICRON IV SCH (09:00)
[2020-04-02] MEDS: TAMSULOSIN 0.4 MG CAP.ER.24H PO SCH (09:03)
[2020-04-02] MEDS: AMIODARONE 450 MG in DEXTROSE 5% 241 ML IV PRN (09:48)
[2020-04-02] MEDS: FENTANYL REMOVE PATCH NOTE XX SCH (11:00)
[2020-04-02] MEDS: ENOXAPARIN 40 MG/0.4 ML SQ SCH ×2 (11:06→23:36)
[2020-04-02] MEDS: INSULIN GLARGINE 100 UNITS/ML, PEN SQ-INSULIN SCH ×2 (11:07→23:45)
[2020-04-02] MEDS: FENTANYL 100 MCG PATCH TD SCH (12:20)
[2020-04-02] MEDS: LIDODERM REMOVE PATCH NOTE XX SCH (20:12)
[2020-04-02] MEDS: POTASSIUM CHLORIDE 20 MEQ PACKET PO SCH (20:27)
[2020-04-03] MEDS: DEXMEDETOMIDINE 400 MCG in SODIUM CHLORIDE 0.9% 96 ML IV PRN ×3 (01:38→21:41)
[2020-04-03] MEDS: AMIODARONE 450 MG in DEXTROSE 5% 241 ML IV PRN (01:38)
[2020-04-03] MEDS: INSULIN LISPRO 100 UNITS/ML, PEN SQ-INSULIN SCH ×3 (05:48→20:37)
[2020-04-03] MEDS: NYSTATIN 500,000 UNITS/5 ML UDC PO SCH ×4 (05:48→20:36)
[2020-04-03] MEDS: GUAIFENESIN 100 MG/5 ML, 10ML UDC PO SCH ×4 (05:48→23:46)
[2020-04-03] MEDS: SULFAMETH/TRIMETHOPRIM 40-8MG/ML SUSP. PO/NG SCH ×4 (05:49→23:46)
[2020-04-03 06:38] LABS: BASOPHILS % (AUTO) 1 % (0-1); EOSINOPHILS % (AUTO) 7 % (1-7); LYMPHOCYTES % (AUTO) 12 % (22-44); MEAN CORPUSCULAR HEMOGLOBIN 29.2 pg (27.0-34.8); MEAN PLATELET VOLUME 8.5 fL (7.4-10.4); MONOCYTES % (AUTO) 5 % (2-9); NEUTROPHILS % (AUTO) 76 % (42-75); PLATELET COUNT 270 x10^3/uL (130-400); RED CELL DISTRIBUTION WIDTH 15.8 % (9.6-15.2)
[2020-04-03 06:39] LABS: MD NO
[2020-04-03 06:51] LABS: ANION GAP 5 mmol/L (5-15); CALCIUM 8.6 mg/dL (8.5-10.1); CHLORIDE 110 mmol/L (98-107); CREATININE 1.01 mg/dL (0.55-1.02)
[2020-04-03 06:52] LABS: BILIRUBIN,TOTAL 0.2 mg/dL (0.2-1.0)
[2020-04-03] MEDS: SODIUM CHLORIDE FLUSH 10ML SYR IVF SCH ×2 (08:48→20:39)
[2020-04-03] MEDS: HYDROCORTISONE 100 MG INJ. IVPush SCH (08:48)
[2020-04-03] MEDS: FUROSEMIDE 40 MG/4 ML IV SCH (08:48)
[2020-04-03] MEDS: FLUDROCORTISONE 0.1 MG TABLET PO SCH ×2 (08:59→20:39)
[2020-04-03] MEDS: TAMSULOSIN 0.4 MG CAP.ER.24H PO SCH (08:59)
[2020-04-03] MEDS: RISPERIDONE 1 MG TABLET PO SCH ×2 (09:00→20:39)
[2020-04-03] MEDS: AMIODARONE 200 MG TABLET PO SCH ×2 (10:22→20:39)
[2020-04-03] MEDS: ENOXAPARIN 40 MG/0.4 ML SQ SCH ×2 (10:23→20:37)
[2020-04-03] MEDS: INSULIN GLARGINE 100 UNITS/ML, PEN SQ-INSULIN SCH ×2 (10:28→20:38)
[2020-04-03] MEDS: LIDODERM REMOVE PATCH NOTE XX SCH (20:23)
[2020-04-03] MEDS: SENNA/DOCUSATE TABLET NG PRN (23:46)
[2020-04-04] MEDS: DEXMEDETOMIDINE 400 MCG in SODIUM CHLORIDE 0.9% 96 ML IV PRN ×2 (00:52→07:48)
[2020-04-04] MEDS: INSULIN LISPRO 100 UNITS/ML, PEN SQ-INSULIN SCH ×4 (04:20→20:59)
[2020-04-04 04:50] LABS: BASOPHILS % (AUTO) 1 % (0-1); EOSINOPHILS % (AUTO) 7 % (1-7); LYMPHOCYTES % (AUTO) 14 % (22-44); MEAN CORPUSCULAR HEMOGLOBIN 29.4 pg (27.0-34.8); MEAN CORPUSCULAR HGB CONC 32.9 g/dL (32.4-35.8); MEAN PLATELET VOLUME 8.6 fL (7.4-10.4); MONOCYTES % (AUTO) 7 % (2-9); NEUTROPHILS % (AUTO) 72 % (42-75); PLATELET COUNT 306 x10^3/uL (130-400); RED BLOOD COUNT 3.37 x10^6/uL (3.82-5.3); RED CELL DISTRIBUTION WIDTH 15.5 % (9.6-15.2)
[2020-04-04 05:03] LABS: ANION GAP 6 mmol/L (5-15); CALCIUM 9.1 mg/dL (8.5-10.1); CHLORIDE 108 mmol/L (98-107); CREATININE 0.89 mg/dL (0.55-1.02)
[2020-04-04 05:05] LABS: BILIRUBIN,TOTAL 0.2 mg/dL (0.2-1.0)
[2020-04-04 05:07] LABS: MD NO
[2020-04-04] MEDS: GUAIFENESIN 100 MG/5 ML, 10ML UDC PO SCH ×3 (05:49→17:46)
[2020-04-04] MEDS: NYSTATIN 500,000 UNITS/5 ML UDC PO SCH ×4 (05:49→21:00)
[2020-04-04] MEDS: SULFAMETH/TRIMETHOPRIM 40-8MG/ML SUSP. PO/NG SCH ×3 (05:50→17:46)
[2020-04-04] MEDS: SODIUM CHLORIDE FLUSH 10ML SYR IVF SCH ×2 (09:00→21:01)
[2020-04-04] MEDS: INSULIN GLARGINE 100 UNITS/ML, PEN SQ-INSULIN SCH ×2 (09:00→20:59)
[2020-04-04] MEDS: ENOXAPARIN 40 MG/0.4 ML SQ SCH ×3 (09:17→21:07)
[2020-04-04] MEDS: AMIODARONE 200 MG TABLET PO SCH ×2 (09:18→21:01)
[2020-04-04] MEDS: RISPERIDONE 1 MG TABLET PO SCH ×2 (09:18→21:00)
[2020-04-04] MEDS: FUROSEMIDE 40 MG/4 ML IV SCH (09:18)
[2020-04-04] MEDS: FLUDROCORTISONE 0.1 MG TABLET PO SCH ×2 (09:18→21:00)
[2020-04-04] MEDS: TAMSULOSIN 0.4 MG CAP.ER.24H PO SCH (09:18)
[2020-04-04] MEDS: ONDANSETRON 2MG/ML, 2ML IV PRN (09:40)
[2020-04-04] MEDS: HYDROCORTISONE 20 MG TABLET PO SCH (09:43)
[2020-04-04] MEDS ORDERED: ETOMIDATE 20 MG/10 ML ONE (10:00)
[2020-04-04] MEDS ORDERED: ROCURONIUM 10MG/ML,5ML ONE (10:00)
[2020-04-04] MEDS: SCOPOLAMINE 1MG PATCH TD SCH (11:27)
[2020-04-04] MEDS ORDERED: METOPROLOL 1 MG/ML, 5ML IVPush PRN (17:30)
[2020-04-05] MEDS: SULFAMETH/TRIMETHOPRIM 40-8MG/ML SUSP. PO/NG SCH ×5 (00:36→22:52)
[2020-04-05] MEDS: GUAIFENESIN 100 MG/5 ML, 10ML UDC PO SCH ×5 (00:36→22:52)
[2020-04-05] MEDS: INSULIN LISPRO 100 UNITS/ML, PEN SQ-INSULIN SCH ×4 (03:25→19:51)
[2020-04-05 03:54] LABS: ALANINE AMINOTRANSFERASE 78 U/L (12-78); ALBUMIN 2.5 g/dL (3.4-5.0); ANION GAP 6 mmol/L (5-15); BASOPHILS % (AUTO) 1 % (0-1); CALCIUM 8.7 mg/dL (8.5-10.1); CHLORIDE 106 mmol/L (98-107); CREATININE 1.13 mg/dL (0.55-1.02); EOSINOPHILS % (AUTO) 6 % (1-7); LYMPHOCYTES % (AUTO) 13 % (22-44); MEAN CORPUSCULAR HEMOGLOBIN 28.7 pg (27.0-34.8); MEAN CORPUSCULAR HGB CONC 32.3 g/dL (32.4-35.8); MEAN PLATELET VOLUME 8.4 fL (7.4-10.4); MONOCYTES % (AUTO) 9 % (2-9); NEUTROPHILS % (AUTO) 71 % (42-75); PLATELET COUNT 384 x10^3/uL (130-400); RED BLOOD COUNT 3.67 x10^6/uL (3.82-5.3); RED CELL DISTRIBUTION WIDTH 15.5 % (9.6-15.2)
[2020-04-05 03:55] LABS: INTERNATIONAL NORMALIZED RATIO 1.01 (0.93-1.1); PROTHROMBIN TIME 10.7 Seconds (9.6-11.5)
[2020-04-05 03:56] LABS: ALKALINE PHOSPHATASE 86 U/L (45-117); BILIRUBIN,TOTAL 0.2 mg/dL (0.2-1.0); TOTAL PROTEIN 7.4 g/dL (6.4-8.2)
[2020-04-05 04:17] LABS: MD NO
[2020-04-05] MEDS: ONDANSETRON 2MG/ML, 2ML IV PRN ×2 (05:37→13:23)
[2020-04-05] MEDS: NYSTATIN 500,000 UNITS/5 ML UDC PO SCH ×4 (05:39→19:49)
[2020-04-05] MEDS: ENOXAPARIN 40 MG/0.4 ML SQ SCH ×2 (07:37→19:49)
[2020-04-05] MEDS: INSULIN GLARGINE 100 UNITS/ML, PEN SQ-INSULIN SCH ×2 (09:00→19:51)
[2020-04-05] MEDS: SODIUM CHLORIDE FLUSH 10ML SYR IVF SCH ×2 (09:00→19:33)
[2020-04-05] MEDS: METHYLNALTREXONE 12 MG/0.6 ML SYR SQ PRN (09:43)
[2020-04-05] MEDS ORDERED: PROPOFOL 10 MG/ML, 20ML ONE ×2 (10:31)
[2020-04-05] MEDS ORDERED: CEFAZOLIN 1,000 MG ONE (10:45)
[2020-04-05] MEDS ORDERED: CEFAZOLIN PMX 1GM/50ML 50 ML IV ONE (11:00)
[2020-04-05] MEDS: FENTANYL REMOVE PATCH NOTE XX SCH (11:00)
[2020-04-05] MEDS ORDERED: VECURONIUM 10 MG ONE (12:32)
[2020-04-05] MEDS ORDERED: ETOMIDATE 20 MG/10 ML ONE (12:32)
[2020-04-05] MEDS ORDERED: MIDAZOLAM 1 MG/ML, 5ML ONE (12:32)
[2020-04-05] MEDS: AMIODARONE 200 MG TABLET PO SCH ×2 (13:19→19:50)
[2020-04-05] MEDS: TAMSULOSIN 0.4 MG CAP.ER.24H PO SCH (13:20)
[2020-04-05] MEDS: FENTANYL 100 MCG PATCH TD SCH (13:20)
[2020-04-05] MEDS: HYDROCORTISONE 20 MG TABLET PO SCH (13:20)
[2020-04-05] MEDS: FUROSEMIDE 40 MG/4 ML IV SCH (13:20)
[2020-04-05] MEDS: FLUDROCORTISONE 0.1 MG TABLET PO SCH ×2 (13:21→19:49)
[2020-04-06] MEDS: INSULIN LISPRO 100 UNITS/ML, PEN SQ-INSULIN SCH ×4 (02:50→22:01)
[2020-04-06 03:47] LABS: BASOPHILS % (AUTO) 0 % (0-1); EOSINOPHILS % (AUTO) 3 % (1-7); LYMPHOCYTES % (AUTO) 7 % (22-44); MEAN CORPUSCULAR HEMOGLOBIN 28.6 pg (27.0-34.8); MEAN CORPUSCULAR HGB CONC 32.5 g/dL (32.4-35.8); MEAN PLATELET VOLUME 8.6 fL (7.4-10.4); MONOCYTES % (AUTO) 8 % (2-9); NEUTROPHILS % (AUTO) 82 % (42-75); PLATELET COUNT 463 x10^3/uL (130-400); RED BLOOD COUNT 3.88 x10^6/uL (3.82-5.3); RED CELL DISTRIBUTION WIDTH 15.9 % (9.6-15.2)
[2020-04-06 03:53] LABS: ANION GAP 5 mmol/L (5-15); CHLORIDE 105 mmol/L (98-107); CREATININE 1.07 mg/dL (0.55-1.02)
[2020-04-06 03:55] LABS: BILIRUBIN,TOTAL 0.3 mg/dL (0.2-1.0)
[2020-04-06 04:44] LABS: MD SCAN
[2020-04-06] MEDS: NYSTATIN 500,000 UNITS/5 ML UDC PO SCH ×4 (05:48→21:56)
[2020-04-06] MEDS: SULFAMETH/TRIMETHOPRIM 40-8MG/ML SUSP. PO/NG SCH ×3 (05:48→18:12)
[2020-04-06] MEDS: GUAIFENESIN 100 MG/5 ML, 10ML UDC PO SCH ×3 (05:48→18:10)
[2020-04-06] MEDS: FLUDROCORTISONE 0.1 MG TABLET PO SCH (10:10)
[2020-04-06] MEDS: FUROSEMIDE 40 MG/4 ML IV SCH (10:10)
[2020-04-06] MEDS: ENOXAPARIN 40 MG/0.4 ML SQ SCH ×2 (10:10→22:00)
[2020-04-06] MEDS: SODIUM CHLORIDE FLUSH 10ML SYR IVF SCH ×2 (10:11→22:00)
[2020-04-06] MEDS: HYDROCORTISONE 20 MG TABLET PO SCH (10:11)
[2020-04-06] MEDS: INSULIN GLARGINE 100 UNITS/ML, PEN SQ-INSULIN SCH ×2 (10:13→22:01)
[2020-04-06] MEDS: TAMSULOSIN 0.4 MG CAP.ER.24H PO SCH (10:14)
[2020-04-06] MEDS: AMIODARONE 200 MG TABLET PO SCH (10:14)
[2020-04-06 15:20] VITALS: BP 127/88
[2020-04-06 19:03] VITALS: BP 124/82
[2020-04-06] MEDS ORDERED: DOCUSATE 50 MG/5 ML, 10ML UDC PO/NG PRN (20:00)
[2020-04-06] MEDS ORDERED: SENNA/DOCUSATE TABLET PEG PRN (20:30)
[2020-04-06] MEDS ORDERED: DEXTROSE 4 GM TAB.CHEW PEG PRN (20:30)
[2020-04-06] MEDS ORDERED: SENNA 176 MG/5 ML ORAL SOL PEG PRN (20:30)
[2020-04-06] MEDS ORDERED: DOCUSATE 50 MG/5 ML, 10ML UDC PEG PRN (20:30)
[2020-04-06] MEDS ORDERED: LACTULOSE 20 GM/30 ML UDC PEG PRN (20:30)
[2020-04-06] MEDS: AMIODARONE 200 MG TABLET PEG SCH (21:58)
[2020-04-06] MEDS: FLUDROCORTISONE 0.1 MG TABLET PEG SCH (21:59)
[2020-04-06] MEDS ORDERED: ACETAMINOPHEN 325 MG TABLET PEG PRN (23:00)
[2020-04-07 00:11] VITALS: BP 111/71
[2020-04-07] MEDS: INSULIN LISPRO 100 UNITS/ML, PEN SQ-INSULIN SCH ×4 (03:00→21:40)
[2020-04-07] MEDS: SULFAMETH/TRIMETHOPRIM 40-8MG/ML SUSP. PEG SCH ×4 (05:42→17:19)
[2020-04-07] MEDS: GUAIFENESIN 100 MG/5 ML, 10ML UDC PEG SCH ×4 (05:42→17:19)
[2020-04-07] MEDS: NYSTATIN 500,000 UNITS/5 ML UDC PO SCH ×4 (05:42→21:23)
[2020-04-07 06:26] LABS: BASOPHILS % (AUTO) 1 % (0-1); EOSINOPHILS % (AUTO) 2 % (1-7); LYMPHOCYTES % (AUTO) 9 % (22-44); MEAN CORPUSCULAR HGB CONC 33.1 g/dL (32.4-35.8); MEAN PLATELET VOLUME 8.4 fL (7.4-10.4); MONOCYTES % (AUTO) 8 % (2-9); NEUTROPHILS % (AUTO) 79 % (42-75); PLATELET COUNT 447 x10^3/uL (130-400); RED CELL DISTRIBUTION WIDTH 15.9 % (9.6-15.2)
[2020-04-07 06:28] LABS: MD NO
[2020-04-07 06:35] LABS: ANION GAP 7 mmol/L (5-15); CHLORIDE 103 mmol/L (98-107); CREATININE 1.04 mg/dL (0.55-1.02)
[2020-04-07 06:36] LABS: BILIRUBIN,TOTAL 0.2 mg/dL (0.2-1.0)
[2020-04-07 07:02] VITALS: BP 123/82
[2020-04-07] MEDS ORDERED: HYDROCORTISONE 20 MG TABLET PEG SCH (07:30)
[2020-04-07] MEDS ORDERED: FUROSEMIDE 20 MG/2 ML IV SCH (09:00)
[2020-04-07] MEDS: AMIODARONE 200 MG TABLET PEG SCH (09:30)
[2020-04-07] MEDS: FLUDROCORTISONE 0.1 MG TABLET PEG SCH ×2 (09:30→21:23)
[2020-04-07] MEDS: ENOXAPARIN 40 MG/0.4 ML SQ SCH (09:31)
[2020-04-07] MEDS: INSULIN GLARGINE 100 UNITS/ML, PEN SQ-INSULIN SCH ×2 (09:33→21:24)
[2020-04-07] MEDS: SODIUM CHLORIDE FLUSH 10ML SYR IVF SCH ×2 (09:34→21:00)
[2020-04-07] MEDS: TAMSULOSIN 0.4 MG CAP.ER.24H PO SCH (09:35)
[2020-04-07] MEDS: SCOPOLAMINE 1MG PATCH TD SCH (12:03)
[2020-04-07 12:06] VITALS: BP 126/83
[2020-04-07] MEDS: PANTOPRAZOLE 40 MG IV IVPush SCH (21:24)
[2020-04-07] MEDS: ONDANSETRON 2MG/ML, 2ML IV PRN (21:40)
[2020-04-07 21:49] VITALS: BP 141/97
[2020-04-07 23:41] LABS: PROTHROMBIN TIME 10.6 Seconds (9.6-11.5)
[2020-04-08] MEDS: GUAIFENESIN 100 MG/5 ML, 10ML UDC PEG SCH ×4 (00:46→18:12)
[2020-04-08] MEDS: SULFAMETH/TRIMETHOPRIM 40-8MG/ML SUSP. PEG SCH ×4 (00:46→18:12)
[2020-04-08 01:19] VITALS: BP 132/87
[2020-04-08] MEDS: INSULIN LISPRO 100 UNITS/ML, PEN SQ-INSULIN SCH ×5 (03:00→21:00)
[2020-04-08] MEDS: NYSTATIN 500,000 UNITS/5 ML UDC PO SCH ×5 (05:05→21:50)
[2020-04-08 06:02] LABS: BASOPHILS % (AUTO) 0 % (0-1); EOSINOPHILS % (AUTO) 1 % (1-7); LYMPHOCYTES % (AUTO) 10 % (22-44); MEAN CORPUSCULAR HEMOGLOBIN 29.2 pg (27.0-34.8); MEAN CORPUSCULAR HGB CONC 33.3 g/dL (32.4-35.8); MEAN PLATELET VOLUME 8.4 fL (7.4-10.4); MONOCYTES % (AUTO) 9 % (2-9); NEUTROPHILS % (AUTO) 80 % (42-75); PLATELET COUNT 443 x10^3/uL (130-400); RED BLOOD COUNT 3.86 x10^6/uL (3.82-5.3); RED CELL DISTRIBUTION WIDTH 16.3 % (9.6-15.2)
[2020-04-08 06:08] LABS: ALANINE AMINOTRANSFERASE 79 U/L (12-78); ALBUMIN 2.6 g/dL (3.4-5.0); ANION GAP 7 mmol/L (5-15); CALCIUM 9.8 mg/dL (8.5-10.1); CHLORIDE 102 mmol/L (98-107); CREATININE 1.13 mg/dL (0.55-1.02)
[2020-04-08 06:11] LABS: MD NO
[2020-04-08 06:13] LABS: ALKALINE PHOSPHATASE 89 U/L (45-117); BILIRUBIN,TOTAL 0.2 mg/dL (0.2-1.0); TOTAL PROTEIN 7.3 g/dL (6.4-8.2)
[2020-04-08 07:11] VITALS: BP 120/84
[2020-04-08 08:21] LABS: MICROSCOPIC NOT IND
[2020-04-08] MEDS: INSULIN GLARGINE 100 UNITS/ML, PEN SQ-INSULIN SCH (09:00)
[2020-04-08] MEDS: FLUDROCORTISONE 0.1 MG TABLET PEG SCH ×2 (10:14→21:50)
[2020-04-08] MEDS: TAMSULOSIN 0.4 MG CAP.ER.24H PO SCH ×2 (10:14→10:17)
[2020-04-08] MEDS: SODIUM CHLORIDE FLUSH 10ML SYR IVF SCH ×2 (10:15→21:51)
[2020-04-08] MEDS: PANTOPRAZOLE 40 MG IV IVPush SCH ×2 (10:15→21:50)
[2020-04-08] MEDS: SUCRALFATE 1 GM/10 ML UDC PEG SCH (10:15)
[2020-04-08 11:35] VITALS: BP 108/64
[2020-04-08] MEDS: ONDANSETRON 2MG/ML, 2ML IV PRN (18:46)
[2020-04-08 20:28] VITALS: BP 122/88
[2020-04-09] VITALS (9 sets, daily range): BP systolic 98–121; BP diastolic 61–84
[2020-04-09] MEDS: SULFAMETH/TRIMETHOPRIM 40-8MG/ML SUSP. PEG SCH ×4 (00:08→17:00)
[2020-04-09] MEDS: GUAIFENESIN 100 MG/5 ML, 10ML UDC PEG SCH ×4 (00:08→17:00)
[2020-04-09] MEDS: NYSTATIN 500,000 UNITS/5 ML UDC PO SCH ×4 (05:26→22:50)
[2020-04-09] MEDS: SUCRALFATE 1 GM/10 ML UDC PEG SCH (08:37)
[2020-04-09] MEDS: TAMSULOSIN 0.4 MG CAP.ER.24H PO SCH (08:37)
[2020-04-09] MEDS: PANTOPRAZOLE 40 MG IV IVPush SCH ×2 (08:38→22:49)
[2020-04-09] MEDS: SODIUM CHLORIDE FLUSH 10ML SYR IVF SCH ×2 (08:39→22:50)
[2020-04-09] MEDS: INSULIN LISPRO 100 UNITS/ML, PEN SQ-INSULIN SCH ×4 (08:41→22:51)
[2020-04-09] MEDS: FLUDROCORTISONE 0.1 MG TABLET PEG SCH ×2 (08:41→22:50)
[2020-04-09 09:50] LABS: BASOPHILS % (AUTO) 1 % (0-1); EOSINOPHILS % (AUTO) 2 % (1-7); LYMPHOCYTES % (AUTO) 14 % (22-44); MEAN CORPUSCULAR HEMOGLOBIN 29.9 pg (27.0-34.8); MEAN CORPUSCULAR HGB CONC 33.8 g/dL (32.4-35.8); MEAN PLATELET VOLUME 8.4 fL (7.4-10.4); MONOCYTES % (AUTO) 8 % (2-9); NEUTROPHILS % (AUTO) 75 % (42-75); PLATELET COUNT 403 x10^3/uL (130-400); RED CELL DISTRIBUTION WIDTH 15.9 % (9.6-15.2)
[2020-04-09 09:53] LABS: MD NO
[2020-04-09 09:58] LABS: ANION GAP 6 mmol/L (5-15); CALCIUM 9.5 mg/dL (8.5-10.1); CHLORIDE 105 mmol/L (98-107); CREATININE 1.24 mg/dL (0.55-1.02)
[2020-04-09 09:59] LABS: BILIRUBIN,TOTAL 0.2 mg/dL (0.2-1.0)
[2020-04-09] MEDS: SODIUM CHLORIDE 0.9% 1,000 ML IV SCH ×2 (12:20→22:54)
[2020-04-09] MEDS ORDERED: TEMAZEPAM 15 MG CAPSULE PO PRN (20:30)
[2020-04-09] MEDS ORDERED: TEMAZEPAM 15 MG CAPSULE PEG PRN (22:30)
--- NOTE | 2020-04-09 23:23 | NUR ---
GHADA BARBOZA - Fall Risk Medications present and NOT receiving anticoagulants.
[2020-04-10] VITALS (7 sets, daily range): BP systolic 95–118; BP diastolic 59–78
[2020-04-10] MEDS: SULFAMETH/TRIMETHOPRIM 40-8MG/ML SUSP. PEG SCH ×3 (00:11→12:35)
[2020-04-10] MEDS: GUAIFENESIN 100 MG/5 ML, 10ML UDC PEG SCH ×3 (00:11→12:36)
[2020-04-10 05:23] LABS: BASOPHILS % (AUTO) 0 % (0-1); EOSINOPHILS % (AUTO) 6 % (1-7); LYMPHOCYTES % (AUTO) 12 % (22-44); MEAN CORPUSCULAR HEMOGLOBIN 29.2 pg (27.0-34.8); MEAN CORPUSCULAR HGB CONC 32.9 g/dL (32.4-35.8); MEAN PLATELET VOLUME 8.3 fL (7.4-10.4); MONOCYTES % (AUTO) 7 % (2-9); NEUTROPHILS % (AUTO) 75 % (42-75); PLATELET COUNT 293 x10^3/uL (130-400); RED BLOOD COUNT 3.45 x10^6/uL (3.82-5.3); RED CELL DISTRIBUTION WIDTH 15.8 % (9.6-15.2)
[2020-04-10 05:33] LABS: ANION GAP 4 mmol/L (5-15); CALCIUM 8.9 mg/dL (8.5-10.1); CHLORIDE 112 mmol/L (98-107); CREATININE 0.89 mg/dL (0.55-1.02)
[2020-04-10 05:36] LABS: MD NO
[2020-04-10] MEDS: NYSTATIN 500,000 UNITS/5 ML UDC PO SCH ×4 (05:52→21:38)
[2020-04-10] MEDS: INSULIN LISPRO 100 UNITS/ML, PEN SQ-INSULIN SCH ×4 (08:14→21:15)
[2020-04-10] MEDS ORDERED: OXYBUTYNIN CHLORIDE 5 MG TABLET PO SCH (09:00)
[2020-04-10] MEDS ORDERED: OXYBUTYNIN CHLORIDE 5 MG TABLET PEG SCH (09:00)
[2020-04-10] MEDS: INSULIN GLARGINE 100 UNITS/ML, PEN SQ-INSULIN SCH ×2 (09:09→21:38)
[2020-04-10] MEDS: PANTOPRAZOLE 40 MG IV IVPush SCH ×2 (09:10→21:30)
[2020-04-10] MEDS: SUCRALFATE 1 GM/10 ML UDC PEG SCH (09:10)
[2020-04-10] MEDS: FLUDROCORTISONE 0.1 MG TABLET PEG SCH (09:11)
[2020-04-10] MEDS: ENOXAPARIN 40 MG/0.4 ML SQ SCH (09:12)
[2020-04-10] MEDS: SODIUM CHLORIDE FLUSH 10ML SYR IVF SCH ×2 (09:12→21:39)
[2020-04-10] MEDS: SCOPOLAMINE 1MG PATCH TD SCH (12:36)
[2020-04-10] MEDS ORDERED: SENNOSIDES 8.6 MG TABLET PO PRN (15:00)
[2020-04-10] MEDS ORDERED: DEXTROSE 4 GM TAB.CHEW PO PRN (15:00)
[2020-04-10] MEDS ORDERED: TEMAZEPAM 15 MG CAPSULE PO PRN (15:00)
[2020-04-10] MEDS ORDERED: SENNA/DOCUSATE TABLET PO PRN (15:00)
[2020-04-10] MEDS ORDERED: DOCUSATE 100 MG CAPSULE PO PRN (15:00)
[2020-04-10] MEDS ORDERED: ACETAMINOPHEN 325 MG TABLET PO PRN (15:00)
[2020-04-10] MEDS ORDERED: LACTULOSE 20 GM/30 ML UDC PO PRN (15:00)
[2020-04-10] MEDS: GUAIFENESIN 200 MG TABLET PO SCH (17:14)
[2020-04-10] MEDS: SULFAMETH/TRIMETHOPRIM 40-8MG/ML SUSP. PO SCH (17:14)
[2020-04-10] MEDS ORDERED: FLUDROCORTISONE 0.1 MG TABLET PO SCH (21:00)
[2020-04-11 00:09] VITALS: BP 123/83
[2020-04-11] MEDS: GUAIFENESIN 200 MG TABLET PO SCH ×5 (01:36→23:28)
[2020-04-11] MEDS: SULFAMETH/TRIMETHOPRIM 40-8MG/ML SUSP. PO SCH ×5 (01:36→21:20)
[2020-04-11] MEDS: NYSTATIN 500,000 UNITS/5 ML UDC PO SCH ×4 (05:28→21:15)
[2020-04-11 06:18] LABS: BASOPHILS % (AUTO) 1 % (0-1); EOSINOPHILS % (AUTO) 8 % (1-7); LYMPHOCYTES % (AUTO) 15 % (22-44); MEAN CORPUSCULAR HEMOGLOBIN 29.7 pg (27.0-34.8); MEAN PLATELET VOLUME 8.3 fL (7.4-10.4); MONOCYTES % (AUTO) 7 % (2-9); NEUTROPHILS % (AUTO) 70 % (42-75); PLATELET COUNT 292 x10^3/uL (130-400); RED BLOOD COUNT 3.32 x10^6/uL (3.82-5.3)
[2020-04-11 06:21] LABS: MD NO
[2020-04-11 07:30] VITALS: BP 115/74
[2020-04-11] MEDS: INSULIN LISPRO 100 UNITS/ML, PEN SQ-INSULIN SCH ×4 (08:00→20:36)
[2020-04-11] MEDS: PANTOPRAZOLE 40 MG IV IVPush SCH (08:10)
[2020-04-11] MEDS: SODIUM CHLORIDE FLUSH 10ML SYR IVF SCH ×2 (08:10→21:15)
[2020-04-11] MEDS: SUCRALFATE 1 GM TABLET PO SCH (08:10)
[2020-04-11] MEDS: OXYBUTYNIN CHLORIDE 5 MG TABLET PO SCH (08:10)
[2020-04-11] MEDS: FLUDROCORTISONE 0.1 MG TABLET PO SCH (08:11)
[2020-04-11] MEDS: ENOXAPARIN 40 MG/0.4 ML SQ SCH (08:14)
[2020-04-11 08:42] LABS: ANION GAP 4 mmol/L (5-15); CALCIUM 8.9 mg/dL (8.5-10.1); CHLORIDE 114 mmol/L (98-107); CREATININE 0.68 mg/dL (0.55-1.02)
[2020-04-11] MEDS: INSULIN GLARGINE 100 UNITS/ML, PEN SQ-INSULIN SCH (09:00)
[2020-04-11 12:59] VITALS: BP 98/50
[2020-04-11 13:04] VITALS: BP 112/79
[2020-04-11] MEDS: PANTOPRAZOLE 40MG TABLET PO SCH (16:37)
[2020-04-11 18:59] VITALS: BP 125/82
[2020-04-12 02:06] VITALS: BP 125/84
[2020-04-12] MEDS: SULFAMETH/TRIMETHOPRIM 40-8MG/ML SUSP. PO SCH ×3 (04:26→18:30)
[2020-04-12 04:49] LABS: BASOPHILS % (AUTO) 0 % (0-1); EOSINOPHILS % (AUTO) 7 % (1-7); LYMPHOCYTES % (AUTO) 16 % (22-44); MEAN CORPUSCULAR HEMOGLOBIN 29.5 pg (27.0-34.8); MEAN PLATELET VOLUME 8.1 fL (7.4-10.4); MONOCYTES % (AUTO) 8 % (2-9); NEUTROPHILS % (AUTO) 69 % (42-75); PLATELET COUNT 300 x10^3/uL (130-400); RED BLOOD COUNT 3.37 x10^6/uL (3.82-5.3); RED CELL DISTRIBUTION WIDTH 15.9 % (9.6-15.2)
[2020-04-12 04:59] LABS: MD NO
[2020-04-12 05:04] LABS: ANION GAP 7 mmol/L (5-15); CALCIUM 9.3 mg/dL (8.5-10.1); CHLORIDE 112 mmol/L (98-107)
[2020-04-12 05:05] LABS: CREATININE 0.66 mg/dL (0.55-1.02)
[2020-04-12] MEDS: PANTOPRAZOLE 40MG TABLET PO SCH ×2 (05:34→18:30)
[2020-04-12] MEDS: NYSTATIN 500,000 UNITS/5 ML UDC PO SCH ×4 (05:34→20:54)
[2020-04-12] MEDS: GUAIFENESIN 200 MG TABLET PO SCH ×3 (05:34→18:30)
[2020-04-12] MEDS ORDERED: PANTOPRAZOLE 40MG TABLET PO SCH (06:00)
[2020-04-12 06:59] VITALS: BP 111/71
[2020-04-12] MEDS: ENOXAPARIN 40 MG/0.4 ML SQ SCH ×2 (07:52→20:55)
[2020-04-12] MEDS: INSULIN LISPRO 100 UNITS/ML, PEN SQ-INSULIN SCH ×4 (07:52→20:53)
[2020-04-12] MEDS: SUCRALFATE 1 GM TABLET PO SCH (07:53)
[2020-04-12] MEDS: OXYBUTYNIN CHLORIDE 5 MG TABLET PO SCH (07:53)
[2020-04-12] MEDS: SODIUM CHLORIDE FLUSH 10ML SYR IVF SCH ×2 (07:53→20:52)
[2020-04-12] MEDS: FLUDROCORTISONE 0.1 MG TABLET PO SCH (07:54)
[2020-04-12 13:24] VITALS: BP 126/80
--- NOTE | 2020-04-12 16:32 | NUR ---
Posted activity sheet in patient's room recommending pt be assisted up to chair for all meals and edwina vest in place prn (per nursing) Addendum: 04/12/20 at 1633 by Tamir Brar PT Amended: Links added.
[2020-04-12 20:30] VITALS: BP 120/84
[2020-04-12] MEDS: INSULIN GLARGINE 100 UNITS/ML, PEN SQ-INSULIN SCH (20:53)
[2020-04-12] MEDS: QUETIAPINE 25MG TABLET PO SCH (20:54)
[2020-04-13] MEDS: GUAIFENESIN 200 MG TABLET PO SCH ×4 (00:45→17:22)
[2020-04-13 01:52] VITALS: BP 124/85
[2020-04-13] MEDS: PANTOPRAZOLE 40MG TABLET PO SCH ×2 (05:06→17:22)
[2020-04-13] MEDS: NYSTATIN 500,000 UNITS/5 ML UDC PO SCH ×4 (05:06→20:32)
[2020-04-13 05:33] LABS: BASOPHILS % (AUTO) 1 % (0-1); EOSINOPHILS % (AUTO) 10 % (1-7); LYMPHOCYTES % (AUTO) 17 % (22-44); MEAN CORPUSCULAR HEMOGLOBIN 29.9 pg (27.0-34.8); MEAN CORPUSCULAR HGB CONC 33.2 g/dL (32.4-35.8); MEAN PLATELET VOLUME 8.1 fL (7.4-10.4); MONOCYTES % (AUTO) 8 % (2-9); NEUTROPHILS % (AUTO) 64 % (42-75); PLATELET COUNT 294 x10^3/uL (130-400); RED CELL DISTRIBUTION WIDTH 16.4 % (9.6-15.2)
[2020-04-13 05:34] LABS: MD NO
[2020-04-13 05:48] LABS: CHLORIDE 113 mmol/L (98-107)
[2020-04-13 05:53] LABS: ANION GAP 5 mmol/L (5-15); CALCIUM 8.8 mg/dL (8.5-10.1); CREATININE 0.71 mg/dL (0.55-1.02)
[2020-04-13 06:39] VITALS: BP 114/74
[2020-04-13] MEDS: INSULIN LISPRO 100 UNITS/ML, PEN SQ-INSULIN SCH ×4 (08:29→20:33)
[2020-04-13] MEDS: SUCRALFATE 1 GM TABLET PO SCH (08:30)
[2020-04-13] MEDS: FLUDROCORTISONE 0.1 MG TABLET PO SCH (08:30)
[2020-04-13] MEDS: OXYBUTYNIN CHLORIDE 5 MG TABLET PO SCH (08:30)
[2020-04-13] MEDS: SODIUM CHLORIDE FLUSH 10ML SYR IVF SCH ×2 (08:30→20:32)
[2020-04-13] MEDS: ENOXAPARIN 40 MG/0.4 ML SQ SCH ×2 (08:32→20:33)
[2020-04-13] MEDS: SCOPOLAMINE 1MG PATCH TD SCH (12:22)
[2020-04-13 13:25] VITALS: BP 126/83
[2020-04-13 20:03] VITALS: BP 116/72
[2020-04-13] MEDS: QUETIAPINE 25MG TABLET PO SCH (20:32)
[2020-04-13] MEDS: INSULIN GLARGINE 100 UNITS/ML, PEN SQ-INSULIN SCH (20:34)
[2020-04-14] MEDS: GUAIFENESIN 200 MG TABLET PO SCH ×4 (00:59→18:29)
[2020-04-14 02:25] VITALS: BP 120/63
[2020-04-14] MEDS: NYSTATIN 500,000 UNITS/5 ML UDC PO SCH ×4 (05:41→20:50)
[2020-04-14] MEDS: PANTOPRAZOLE 40MG TABLET PO SCH ×2 (05:41→16:19)
[2020-04-14 06:39] LABS: BASOPHILS % (AUTO) 1 % (0-1); EOSINOPHILS % (AUTO) 10 % (1-7); LYMPHOCYTES % (AUTO) 16 % (22-44); MEAN CORPUSCULAR HEMOGLOBIN 29.3 pg (27.0-34.8); MEAN CORPUSCULAR HGB CONC 32.9 g/dL (32.4-35.8); MEAN PLATELET VOLUME 8.2 fL (7.4-10.4); MONOCYTES % (AUTO) 8 % (2-9); NEUTROPHILS % (AUTO) 65 % (42-75); PLATELET COUNT 270 x10^3/uL (130-400); RED BLOOD COUNT 3.56 x10^6/uL (3.82-5.3); RED CELL DISTRIBUTION WIDTH 16.3 % (9.6-15.2)
[2020-04-14 06:43] LABS: MD NO
[2020-04-14 06:48] VITALS: BP 119/80
[2020-04-14 06:48] LABS: ANION GAP 4 mmol/L (5-15); C-REACTIVE PROTEIN, QUANT 0.17 mg/dL (0.02-0.49); CALCIUM 8.8 mg/dL (8.5-10.1); CHLORIDE 113 mmol/L (98-107); CREATININE 0.71 mg/dL (0.55-1.02)
[2020-04-14] MEDS: INSULIN LISPRO 100 UNITS/ML, PEN SQ-INSULIN SCH ×4 (07:54→20:58)
[2020-04-14] MEDS: SODIUM CHLORIDE FLUSH 10ML SYR IVF SCH ×2 (07:54→20:50)
[2020-04-14] MEDS: OXYBUTYNIN CHLORIDE 5 MG TABLET PO SCH (07:54)
[2020-04-14] MEDS: SUCRALFATE 1 GM TABLET PO SCH (07:54)
[2020-04-14] MEDS: FLUDROCORTISONE 0.1 MG TABLET PO SCH (07:54)
[2020-04-14] MEDS: ENOXAPARIN 40 MG/0.4 ML SQ SCH ×2 (07:54→20:51)
[2020-04-14] MEDS ORDERED: SODIUM CHLORIDE 0.9%, 500ML IVBOLUS ONE (11:30)
[2020-04-14 13:19] VITALS: BP 118/82
[2020-04-14 19:00] LABS: MICROSCOPIC INDICATED
[2020-04-14 19:26] VITALS: BP 114/77
[2020-04-14] MEDS: QUETIAPINE 25MG TABLET PO SCH (20:52)
[2020-04-14] MEDS: INSULIN GLARGINE 100 UNITS/ML, PEN SQ-INSULIN SCH (20:57)
[2020-04-15 00:21] VITALS: BP 111/74
[2020-04-15] MEDS: GUAIFENESIN 200 MG TABLET PO SCH ×5 (00:23→23:52)
[2020-04-15] MEDS: NYSTATIN 500,000 UNITS/5 ML UDC PO SCH ×4 (05:32→21:24)
[2020-04-15] MEDS: PANTOPRAZOLE 40MG TABLET PO SCH ×2 (05:49→17:36)
[2020-04-15 05:58] LABS: BASOPHILS % (AUTO) 1 % (0-1); EOSINOPHILS % (AUTO) 9 % (1-7); LYMPHOCYTES % (AUTO) 18 % (22-44); MEAN CORPUSCULAR HEMOGLOBIN 30.2 pg (27.0-34.8); MEAN CORPUSCULAR HGB CONC 33.2 g/dL (32.4-35.8); MEAN PLATELET VOLUME 8.3 fL (7.4-10.4); MONOCYTES % (AUTO) 9 % (2-9); NEUTROPHILS % (AUTO) 63 % (42-75); PLATELET COUNT 297 x10^3/uL (130-400); RED BLOOD COUNT 3.52 x10^6/uL (3.82-5.3); RED CELL DISTRIBUTION WIDTH 16.4 % (9.6-15.2)
[2020-04-15 06:08] LABS: ANION GAP 6 mmol/L (5-15); CHLORIDE 116 mmol/L (98-107)
[2020-04-15 06:09] LABS: CALCIUM 8.9 mg/dL (8.5-10.1); CREATININE 0.63 mg/dL (0.55-1.02)
[2020-04-15 06:21] LABS: MD NO
[2020-04-15 07:17] VITALS: BP 122/80
[2020-04-15] MEDS: INSULIN LISPRO 100 UNITS/ML, PEN SQ-INSULIN SCH ×4 (10:04→21:00)
[2020-04-15] MEDS: OXYBUTYNIN CHLORIDE 5 MG TABLET PO SCH (10:32)
[2020-04-15] MEDS: FLUDROCORTISONE 0.1 MG TABLET PO SCH (10:32)
[2020-04-15] MEDS: SODIUM CHLORIDE 0.9% 250 ML IV SCH ×2 (10:33→10:39)
[2020-04-15] MEDS: ENOXAPARIN 40 MG/0.4 ML SQ SCH ×2 (10:34→21:00)
[2020-04-15] MEDS: SUCRALFATE 1 GM TABLET PO SCH (10:34)
[2020-04-15] MEDS: SODIUM CHLORIDE FLUSH 10ML SYR IVF SCH ×2 (10:35→21:00)
[2020-04-15 11:02] VITALS: BP 124/85
[2020-04-15] MEDS: INSULIN GLARGINE 100 UNITS/ML, PEN SQ-INSULIN SCH (21:00)
[2020-04-15 21:17] VITALS: BP 116/80
[2020-04-15] MEDS: QUETIAPINE 25MG TABLET PO SCH (21:25)
[2020-04-16 01:27] VITALS: BP 115/73
[2020-04-16 05:45] LABS: BASOPHILS % (AUTO) 1 % (0-1); EOSINOPHILS % (AUTO) 9 % (1-7); LYMPHOCYTES % (AUTO) 23 % (22-44); MEAN CORPUSCULAR HEMOGLOBIN 30.1 pg (27.0-34.8); MEAN CORPUSCULAR HGB CONC 33.5 g/dL (32.4-35.8); MEAN PLATELET VOLUME 8.3 fL (7.4-10.4); MONOCYTES % (AUTO) 10 % (2-9); NEUTROPHILS % (AUTO) 57 % (42-75); PLATELET COUNT 279 x10^3/uL (130-400); RED BLOOD COUNT 3.29 x10^6/uL (3.82-5.3); RED CELL DISTRIBUTION WIDTH 16.5 % (9.6-15.2)
[2020-04-16 05:54] LABS: CHLORIDE 115 mmol/L (98-107)
[2020-04-16 05:58] LABS: ANION GAP 5 mmol/L (5-15); CALCIUM 8.5 mg/dL (8.5-10.1); CREATININE 0.62 mg/dL (0.55-1.02)
[2020-04-16] MEDS: PANTOPRAZOLE 40MG TABLET PO SCH ×2 (06:00→17:10)
[2020-04-16] MEDS: GUAIFENESIN 200 MG TABLET PO SCH ×4 (06:12→23:47)
[2020-04-16] MEDS: NYSTATIN 500,000 UNITS/5 ML UDC PO SCH ×4 (06:12→22:15)
[2020-04-16 06:44] VITALS: BP 101/67
[2020-04-16 06:55] LABS: MD NO
[2020-04-16] MEDS: INSULIN LISPRO 100 UNITS/ML, PEN SQ-INSULIN SCH ×4 (07:50→22:15)
[2020-04-16] MEDS: ENOXAPARIN 40 MG/0.4 ML SQ SCH ×2 (09:00→22:15)
[2020-04-16] MEDS: SUCRALFATE 1 GM TABLET PO SCH (09:00)
[2020-04-16] MEDS: OXYBUTYNIN CHLORIDE 5 MG TABLET PO SCH (09:34)
[2020-04-16] MEDS: FLUDROCORTISONE 0.1 MG TABLET PO SCH (09:35)
[2020-04-16] MEDS: SODIUM CHLORIDE FLUSH 10ML SYR IVF SCH ×2 (09:36→22:15)
[2020-04-16] MEDS ORDERED: SCOPOLAMINE PATCH, 1.5MG PATCH.TD72 TD SCH (11:00)
[2020-04-16 12:05] VITALS: BP 118/85
[2020-04-16 21:01] VITALS: BP 120/85
[2020-04-16] MEDS: INSULIN GLARGINE 100 UNITS/ML, PEN SQ-INSULIN SCH (22:15)
[2020-04-16] MEDS: QUETIAPINE 25MG TABLET PO SCH (22:15)
[2020-04-17 02:46] VITALS: BP 114/77
[2020-04-17 05:34] LABS: BASOPHILS % (AUTO) 1 % (0-1); EOSINOPHILS % (AUTO) 8 % (1-7); LYMPHOCYTES % (AUTO) 23 % (22-44); MEAN CORPUSCULAR HEMOGLOBIN 29.9 pg (27.0-34.8); MEAN CORPUSCULAR HGB CONC 33.7 g/dL (32.4-35.8); MONOCYTES % (AUTO) 9 % (2-9); NEUTROPHILS % (AUTO) 60 % (42-75); PLATELET COUNT 280 x10^3/uL (130-400); RED BLOOD COUNT 3.37 x10^6/uL (3.82-5.3); RED CELL DISTRIBUTION WIDTH 16.3 % (9.6-15.2)
[2020-04-17 05:40] LABS: MD NO
[2020-04-17 05:42] LABS: ANION GAP 7 mmol/L (5-15); CALCIUM 8.7 mg/dL (8.5-10.1); CHLORIDE 114 mmol/L (98-107); CREATININE 0.61 mg/dL (0.55-1.02)
[2020-04-17] MEDS: GUAIFENESIN 200 MG TABLET PO SCH ×4 (06:00→20:21)
[2020-04-17] MEDS: PANTOPRAZOLE 40MG TABLET PO SCH ×2 (06:00→17:07)
[2020-04-17] MEDS: NYSTATIN 500,000 UNITS/5 ML UDC PO SCH ×2 (06:00→12:57)
[2020-04-17 06:51] VITALS: BP 112/68
[2020-04-17] MEDS: INSULIN LISPRO 100 UNITS/ML, PEN SQ-INSULIN SCH ×4 (07:00→20:23)
[2020-04-17] MEDS: SODIUM CHLORIDE FLUSH 10ML SYR IVF SCH ×2 (10:02→20:23)
[2020-04-17] MEDS: ENOXAPARIN 40 MG/0.4 ML SQ SCH ×2 (10:03→20:22)
[2020-04-17] MEDS: FLUDROCORTISONE 0.1 MG TABLET PO SCH (10:04)
[2020-04-17] MEDS: SUCRALFATE 1 GM TABLET PO SCH (10:04)
[2020-04-17] MEDS: OXYBUTYNIN CHLORIDE 5 MG TABLET PO SCH (10:04)
[2020-04-17 12:09] VITALS: BP 115/65
[2020-04-17 20:19] VITALS: BP 126/82
[2020-04-17] MEDS: QUETIAPINE 25MG TABLET PO SCH (20:21)
[2020-04-17] MEDS: INSULIN GLARGINE 100 UNITS/ML, PEN SQ-INSULIN SCH (20:23)
[2020-04-18 03:17] VITALS: BP 116/82
[2020-04-18] MEDS: PANTOPRAZOLE 40MG TABLET PO SCH (05:12)
[2020-04-18] MEDS: GUAIFENESIN 200 MG TABLET PO SCH ×2 (05:12→11:30)
[2020-04-18 05:58] LABS: BASOPHILS % (AUTO) 1 % (0-1); EOSINOPHILS % (AUTO) 7 % (1-7); LYMPHOCYTES % (AUTO) 26 % (22-44); MEAN CORPUSCULAR HEMOGLOBIN 30.1 pg (27.0-34.8); MEAN CORPUSCULAR HGB CONC 33.4 g/dL (32.4-35.8); MEAN PLATELET VOLUME 7.8 fL (7.4-10.4); MONOCYTES % (AUTO) 9 % (2-9); NEUTROPHILS % (AUTO) 57 % (42-75); PLATELET COUNT 262 x10^3/uL (130-400); RED BLOOD COUNT 3.31 x10^6/uL (3.82-5.3); RED CELL DISTRIBUTION WIDTH 16.6 % (9.6-15.2)
[2020-04-18 05:59] LABS: MD NO
[2020-04-18 06:08] LABS: ANION GAP 6 mmol/L (5-15); CALCIUM 8.6 mg/dL (8.5-10.1); CHLORIDE 116 mmol/L (98-107); CREATININE 0.56 mg/dL (0.55-1.02)
[2020-04-18] MEDS ORDERED: POTASSIUM CHLORIDE 20 MEQ TAB.ER.PRT PO ONE (07:30)
[2020-04-18 07:33] VITALS: BP 112/78
[2020-04-18] MEDS: INSULIN LISPRO 100 UNITS/ML, PEN SQ-INSULIN SCH ×2 (08:10→12:44)
[2020-04-18] MEDS: SUCRALFATE 1 GM TABLET PO SCH (08:11)
[2020-04-18] MEDS: OXYBUTYNIN CHLORIDE 5 MG TABLET PO SCH (08:12)
[2020-04-18] MEDS: ENOXAPARIN 40 MG/0.4 ML SQ SCH (08:13)
[2020-04-18] MEDS: SODIUM CHLORIDE FLUSH 10ML SYR IVF SCH (08:14)
[2020-04-18] MEDS ORDERED: OXYB5TAB10 PO (09:51)
[2020-04-18] MEDS ORDERED: SUCR1TAB33 PO (09:51)
[2020-04-18] MEDS ORDERED: PANT40TA6 PO (09:51)
[2020-04-18] MEDS ORDERED: INSU100I13 SQ-INSULIN (09:53)
[2020-04-18] MEDS ORDERED: APIX5TAB PO (12:00)
== END 2020-04-18 15:29 | disposition home health service (06) | DRG 4 ==
LOC: ED 09:24 → EDIP 10:26 → 3N 18:08 → ICU 03-01 01:15 → 4WST 04-06 14:56
PROVIDERS: ADMIT Internal Medicine Infectious Disease; ATTEND Hospitalist
PROC: XW033E5 Introduction of Remdesivir Anti-infective into Peripheral Vein, Percutaneous Approach, New Technology Group 5 (ICD-10-PCS; 2020-02-29)
PROC: 5A1955Z Respiratory Ventilation, Greater than 96 Consecutive Hours (ICD-10-PCS; 2020-03-01)
PROC: 0T9B30Z Drainage of Bladder with Drainage Device, Percutaneous Approach (ICD-10-PCS; 2020-03-01)
PROC: 5A09357 Assistance with Respiratory Ventilation, Less than 24 Consecutive Hours, Continuous Positive Airway Pressure (ICD-10-PCS; 2020-03-01)
PROC: 0BH17EZ Insertion of Endotracheal Airway into Trachea, Via Natural or Artificial Opening (ICD-10-PCS; 2020-03-01)
PROC: 02HV33Z Insertion of Infusion Device into Superior Vena Cava, Percutaneous Approach (ICD-10-PCS; 2020-03-01)
PROC: B548ZZA Ultrasonography of Superior Vena Cava, Guidance (ICD-10-PCS; 2020-03-01)
PROC: 02H633Z Insertion of Infusion Device into Right Atrium, Percutaneous Approach (ICD-10-PCS; 2020-03-01)
PROC: B548ZZA Ultrasonography of Superior Vena Cava, Guidance (ICD-10-PCS; 2020-03-01)
PROC: 0B113F4 Bypass Trachea to Cutaneous with Tracheostomy Device, Percutaneous Approach (ICD-10-PCS; 2020-03-21)
PROC: 0BJ08ZZ Inspection of Tracheobronchial Tree, Via Natural or Artificial Opening Endoscopic (ICD-10-PCS; 2020-04-04)
PROC: 3E0G76Z Introduction of Nutritional Substance into Upper GI, Via Natural or Artificial Opening (ICD-10-PCS; 2020-04-05)
PROC: 0DH63UZ Insertion of Feeding Device into Stomach, Percutaneous Approach (ICD-10-PCS; principal; 2020-04-05 09:00)
DX: A41.9 Sepsis, unspecified organism (principal); J15.6 Pneumonia due to other Gram-negative bacteria; J81.0 Acute pulmonary edema; J96.01 Acute respiratory failure with hypoxia; N17.0 Acute kidney failure with tubular necrosis; U07.1 COVID-19; J12.82 Pneumonia due to coronavirus disease 2019; B37.49 Other urogenital candidiasis; T83.518A Infection and inflammatory reaction due to other urinary catheter, initial encounter; B37.0 Candidal stomatitis; E27.40 Unspecified adrenocortical insufficiency; G93.40 Encephalopathy, unspecified; J81.1 Chronic pulmonary edema; J95.03 Malfunction of tracheostomy stoma; J98.11 Atelectasis; Z99.11 Dependence on respirator [ventilator] status; D64.9 Anemia, unspecified; E11.22 Type 2 diabetes mellitus with diabetic chronic kidney disease; E83.52 Hypercalcemia; E86.0 Dehydration; D72.829 Elevated white blood cell count, unspecified; D47.3 Essential (hemorrhagic) thrombocythemia; I12.9 Hypertensive chronic kidney disease with stage 1 through stage 4 chronic kidney disease, or unspecified chronic kidney disease; I48.91 Unspecified atrial fibrillation; N18.9 Chronic kidney disease, unspecified; R13.14 Dysphagia, pharyngoesophageal phase; T36.8X5A Adverse effect of other systemic antibiotics, initial encounter; I95.9 Hypotension, unspecified; T38.0X5A Adverse effect of glucocorticoids and synthetic analogues, initial encounter; Y84.6 Urinary catheterization as the cause of abnormal reaction of the patient, or of later complication, without mention of misadventure at the time of the procedure; Z83.3 Family history of diabetes mellitus; Z87.442 Personal history of urinary calculi; Z79.899 Other long term (current) drug therapy; Z79.891 Long term (current) use of opiate analgesic; Z79.01 Long term (current) use of anticoagulants; Z79.2 Long term (current) use of antibiotics; Z88.8 Allergy status to other drugs, medicaments and biological substances; Z88.5 Allergy status to narcotic agent
CPT/HCPCS: 36415; 36600; 74018; 74230; 84145; 87106; 96365; 96366; 96375; 99291; J3490; 31622; 31624; 36572; 70450; 71045; 76770; 80048; 80053; 81001; 81003; 82247; 82330; 82533; 82728; 82803; 82962; 83036; 83605; 83615; 83735; 83880; 83970; 84100; 84478; 84484; 85014; 85018; 85025; 85049; 85379; 85384; 85610; 85730; 86140; 87040; 87070; 87077; 87081; 87086; 87186; 87190; 87205; 87635; 93005; 93306; 94002; 94003; 94660; B4087; G0378; J0690; J0696; J1100; J1650; J1720; J1940; J1956; J2185; J2250; J2405; J2704; J2997; J3010; J7030; J7060; J7120; C1751; C9113; J0282; J1160; J1450; J1815; J2430; J3475; J7040; J7050; U0003

== ENCOUNTER 2020-07-20 08:06 | Outpatient (CLI) | payer MEDICARE ==
[~2020-07-20 08:06] MED LIST changes: +APIX5TAB PO; -CIPR500T3 PO; +CIPR500T4 PO; +INSU100I13 SQ-INSULIN; +OXYB5TAB10 PO; +PANT40TA6 PO; +SUCR1TAB33 PO
== END 2020-07-20 23:59 | disposition home or self-care (01) ==
LOC: CFH 08:06
PROVIDERS: ATTEND Internal Medicine
DX: R91.8 Other nonspecific abnormal finding of lung field (principal); J12.89 Other viral pneumonia; J45.909 Unspecified asthma, uncomplicated; J96.11 Chronic respiratory failure with hypoxia; R04.2 Hemoptysis; Z86.16 Personal history of COVID-19
CPT/HCPCS: 71250

== ENCOUNTER → 2020-10-19 | Outpatient (CLI) | payer MEDICARE | END | disposition home or self-care (01) | LOC: CFH 09:06 | DX: M85.88 Other specified disorders of bone density and structure, other site (principal); M81.0 Age-related osteoporosis without current pathological fracture | CPT/HCPCS: 77080 ==